=== PATIENT | female | born 1980 | race Caucasian/White ===

== ENCOUNTER → 2016-09-11 | Outpatient (CLI) | payer BC ==
[~2016-09-11] MED LIST: DIPH1TAB PO; IBUP-1050 PO; OMEG10007 PO; PRENTAB26 PO
== END | disposition home or self-care (01) ==
LOC: C.LAB 15:18
PROVIDERS: ATTEND Obstetrics & Gynecology
DX: N91.2 Amenorrhea, unspecified (principal)

== ENCOUNTER → 2016-11-11 | Outpatient (CLI) | payer BC | END | disposition home or self-care (01) | LOC: C.LAB 16:29 | PROVIDERS: ATTEND Obstetrics & Gynecology | DX: E28.8 Other ovarian dysfunction (principal) ==

== ENCOUNTER → 2016-11-25 | Outpatient (CLI) | payer BC ==
[2016-11-29 11:40] LABS: CHLAMYDIA TRACH RNA*** NOT DETECTED (NOT DETECTED); GC (NEIS GONORRHOEAE)RNA** NOT DETECTED (NOT DETECTED)
== END | disposition home or self-care (01) ==
LOC: C.LABSPEC 14:54
PROVIDERS: ATTEND Obstetrics & Gynecology
DX: Z34.81 Encounter for supervision of other normal pregnancy, first trimester (principal)

== ENCOUNTER → 2016-11-27 | Outpatient (CLI) | payer BC | END | disposition home or self-care (01) | LOC: C.LAB 13:27 | PROVIDERS: ATTEND Obstetrics & Gynecology | DX: O09.511 Supervision of elderly primigravida, first trimester (principal); Z3A.00 Weeks of gestation of pregnancy not specified ==

== ENCOUNTER → 2016-12-26 | Day surgery (SDC) | payer BC ==
--- NOTE | 2016-12-24 19:33 | HISTORY & PHYSICAL EXAMINATION ---
DATE: 12/26/2016 CHIEF COMPLAINT: Blighted ovum. HISTORY OF PRESENT ILLNESS: The patient is a 36-year-old 2, para 1. She conceived on Clomid, her last menstrual period was 10/21/2016. She had beta unit progesterone level done on 11/27/2016, showed beta units of 3151, progesterone level 14.09. She was brought in for routine ultrasound screening on 12/24/2016 and showed an empty gestational sac which she had an irregular border and was only a 5-week 4-day size with an expected gestational age of 9 weeks and 1 day. She was diagnosed with a blighted ovum, scheduled for an outpatient D&E. PAST MEDICAL HISTORY: She has a 2-year-old boy in good health. ALLERGIES: No known drug allergies. MEDICATIONS: She is on no chronic pills or medications. PAST SURGICAL HISTORY: Status post breast augmentation 2004. SOCIAL HISTORY: No smoking. No alcohol intake. FAMILY HISTORY: Mom is 62, had a hysterectomy at age 37 for endometriosis. Dad 63, in good health. She has 1 sister in good health. REVIEW OF SYSTEMS: She does have problems with sinus headaches. No symptoms of frequent ear infections, nosebleed, sore throats, kidney or bladder infections. PHYSICAL EXAMINATION: GENERAL: Well-developed, well-nourished 36-year-old white female, alert, oriented x3 and cooperative, no acute distress, appears her stated age. EYES: Conjunctivae are pink, sclerae white, no evidence of jaundice. EARS: Have normal light reflex bilaterally. NOSE: Has normal mucosa. Septum is midline. There are no polyps. THROAT: No erythema or evidence of infection. Teeth are in good state of repair. HEAD: Normocephalic, normal distribution of hair. NECK: Supple. Trachea midline. Thyroid is not enlarged. There is no adenopathy appreciated. Both carotids are of good intensity. CHEST: Clear to auscultation and percussion. No wheezes, rales or rhonchi appreciated. HEART: Has regular rhythm. S1 and S2 are normal. BREASTS: Normal. ABDOMEN: Soft and nontender. PELVIC: Reveals normal appearing cervix. Uterus is normal size, 6-8 weeks' gestational size. There are no adnexal masses appreciated. There is no tenderness. IMPRESSIONS OF THIS CASE: Status post breast augmentation and blighted ovum.
[2016-12-25 15:42] VITALS: BMI 23.0
[~2016-12-26] VITALS: Ht 154.9 cm; Wt 56.4 kg
[~2016-12-26] MED LIST changes: +DEXAMETHASONE SOD INJ 4 MG/ML VIAL ONE; -DIPH1TAB PO; +DIPH1TAB87 PO; +DiphenhydrAMINE HCL 50 MG/ML VIAL ONE; +FENTANYL CITRATE INJ 50 MCG/1 ML 2 ML VIAL IV PRN; +FENTANYL CITRATE INJ 50 MCG/1 ML 2 ML VIAL ONE; +HYDROCODONE/ACETAMOPHEN 5/325MG TAB PO PRN; +IBUPROFEN 600 MG TAB PO PRN; +KETOROLAC TROMETHAMINE 30 MG/ML VIAL IV. PRN; +LACTATED RINGER'S 1000ML 1,000 ML IV PRN; +LACTATED RINGER'S 1000ML 1,000 ML IV SCH; +LIDOCAINE HCL 2% 2 ML VIAL (20MG/ML) ONE; +METOCLOPRAMIDE HCL INJ 5 MG/ML 2 ML VIAL ONE; +MIDAZOLAM HCL 1 MG/ML 2ML VIAL ONE; -OMEG10007 PO; +ONDANSETRON INJ 2 MG/ML 2 ML VIAL IV PRN; +ONDANSETRON INJ 2 MG/ML 2 ML VIAL ONE; +OXYCODONE/ACETAMINOPHEN 5-325 TAB PO PRN; +OXYTOCIN INJ 10 UNITS/ML VIAL ONE; -PRENTAB26 PO; +PROPOFOL IV EMULSION 10 MG/ML 20 ML VIAL IV ONE; +SCOPOLAMINE 1.5 MG TDSY TD ONE; +SODIUM CHLORIDE 0.9% 1000ML 1,000 ML IV SCH
[2016-12-26 09:38] VITALS: BP 113/60; PULSE 61; TEMP 37; O2SAT 100; Ht 154.9 cm; Wt 56.4 kg
--- NOTE | 2016-12-26 11:07 | History & Physical Bridge Note ---
H&P Re-Evaluation Bridge Note: I have examined the patient, reviewed the History & Physical and in the interval since the performance of the History & Physical I have noted the following changes of clinical significance: No changes noted
--- NOTE | 2016-12-26 12:01 | [facility] Post Operative Brief Note ---
Immediate Operative Summary Operative Date Dec 26, 2016. Pre-Operative Diagnosis Blighted Ovum Post-Operative Diagnosis same as preoperative Procedure(s) Performed Dilation and Evacuation Surgeon Computed Tomography Scanner Operator Surgeon(s) None Estimated Blood Loss 100ml Findings 9 week size uterus Specimens A. Products of Conception. Complication(s) None Disposition Recovery Room / PACU
--- NOTE | 2016-12-26 12:03 | OPERATIVE REPORT ---
DATE OF OPERATION: 12/26/2016 PROCEDURE: Suction and sharp curettage of the endometrial cavity. INDICATIONS FOR SURGERY: Blighted ovum on first trimester ultrasound. PREOPERATIVE DIAGNOSIS: Blighted ovum. POSTOPERATIVE DIAGNOSIS: Same. Pathology pending. SURGEON: Dr. Blair. ESTIMATED BLOOD LOSS: 100 mL. OPERATIVE FINDINGS AND PROCEDURE: The patient was brought to the OR table, correctly identified by armband and conversation. General anesthesia was administered. Perineum and vagina were painted with Betadine paint and draped in the usual sterile fashion. Catheter was used to empty the bladder. Careful pelvic exam under anesthesia revealed about a 9-week gestational size uterus, soft, and anteverted. No adnexal masses appreciated. Weighted speculum was placed in the posterior vagina. Anterior lip of the cervix was grasped with an Allis. Cervix was dilated with graduated dilators. Then, #8 suction curette was placed in the uterine cavity. Suction was applied and amniotic fluid and placental tissue could be seen coming through the curette. Following this, a sharp curette was placed in the uterine cavity. All 4 quadrants were gently and thoroughly curetted. This was productive of a few additional fragments of tissue. Then, the suction curette was reapplied and the endometrial cavity was re-suctioned to remove all remaining debris and blood clots. Following this, with bimanual massage, uterus contracted nicely. Hemostasis was good. Instruments were removed. The patient tolerated the procedure well and left the OR in good condition. I attest to the content of the Intraoperative Record and any orders documented therein. Any exceptio ns are noted below.
--- NOTE | 2016-12-26 12:05 | Discharge Instructions ---
Discharge Instructions Date of Service Dec 26, 2016. Visit Reason for Visit: Missed Discharge Discharge Diagnosis / Problem: missed Discharge Goals Goal(s): Improve disease control Activity Recommendations Activity Limitations: as noted below ACTIVITY RECOMMENDATIONS: * Avoid tampons, douching, hot tubs, pools, and intercourse until bleeding has stopped. * May shower as usual. * No strenuous activity for 24-48 hours. After 24-48 hours, you may do anything you feel like doing (driving and sports are okay). SPECIAL CARE INSTRUCTIONS: Special Diet: * Mild nausea may occur in the immediate post-operative period. * Take clear liquids such as tea, cola or bouillon until all nausea has subsided; you may then resume your normal diet. Special Care: * Light bleeding and vaginal spotting can last from a few days to 3-4 weeks. Call your doctor if bleeding becomes heavier than the heaviest part of your period. * Check your temperature twice a day for one week. If it goes above 100.4 degrees Fahrenheit (38.0 Celsius), notify your doctor. * Call your doctor's office for an appointment for 6 weeks after your surgery. FOLLOW-UP VISIT: Call your doctor's office for an appointment for 6 weeks after your surgery. Anesthesia . Post Anesthesia Instructions: If you have had General Anesthesia or IV Sedation: * Do not drive today. * Resume driving when surgeon permits. * Do not make important decisions or sign legal documents today. * Call surgeon for: 1. Temperature elevations greater than 101 degrees F. 2. Uncontrollable pain. 3. Excessive bleeding. 4. Persistent nausea and vomiting. 5. Medication intolerance (nausea, vomiting or rash). * For nausea and vomiting use only clear liquids such as: tea, soda, bouillon until nausea subsides, then gradually increase diet as tolerated. * If you have any concerns or questions, call your surgeon's office. If physician is unavailable and it is an emergency, call 911 or go to the nearest emergency room. . Diet Recommendations Recommended Home Diet: resume previous diet Procedures Procedures Performed: Dilation and Evacuation Pending Studies Studies pending at discharge: no Medical Emergencies . Who to Call and When: Medical Emergencies: If at any time you feel your situation is an emergency, please call 911 immediately. . Non-Emergent Contact Non-Emergency issues call your: Life Insurance Actuary Call Non-Emergent contact if: temperature is above 100.5 . . "Provider Documentation" section prepared by Candelario Blair. .
[2016-12-26 12:50] VITALS: BP 100/49; PULSE 69; TEMP 36.9; O2SAT 100
--- NOTE | 2016-12-26 12:56 | Anesthesiology Progress Note ---
Anesthesia Post Op Note Date & Time Dec 26, 2016 at 12:55 Vital Signs Pain Intensity: 0 Vital Signs Past 12 Hours Date Time Temp Pulse Resp B/P Pulse Ox O2 Delivery O2 Flow Rate FiO2 12/26/16 12:40 37.0 63 12 103/44 100 Room Air 12/26/16 12:30 66 12 105/43 100 Room Air 12/26/16 12:20 67 12 103/40 100 Mask 10 12/26/16 12:10 70 12 100/50 100 Mask 10 12/26/16 12:04 37.2 72 12 102/42 100 Mask 10 12/26/16 09:38 37 61 16 113/60 100 Room Air Notes Mental Status: alert / awake / arousable, participated in evaluation Pt Amnestic to Procedure: Yes Nausea / Vomiting: adequately controlled Pain: adequately controlled Airway Patency, RR, SpO2: stable & adequate BP & HR: stable & adequate Hydration State: stable & adequate Anesthetic Complications: no major complications apparent
[2016-12-26 13:20] VITALS: BP 102/51; PULSE 70; O2SAT 100
== END | disposition home or self-care (01) ==
LOC: C.ACU 09:19
PROVIDERS: ATTEND Obstetrics & Gynecology
DX: O02.0 Blighted ovum and nonhydatidiform mole (principal)

== ENCOUNTER → 2017-01-15 | Outpatient (CLI) | payer BC ==
[~2017-01-15] MED LIST changes: -DEXAMETHASONE SOD INJ 4 MG/ML VIAL ONE; -DiphenhydrAMINE HCL 50 MG/ML VIAL ONE; -FENTANYL CITRATE INJ 50 MCG/1 ML 2 ML VIAL IV PRN; -FENTANYL CITRATE INJ 50 MCG/1 ML 2 ML VIAL ONE; -HYDROCODONE/ACETAMOPHEN 5/325MG TAB PO PRN; -IBUPROFEN 600 MG TAB PO PRN; -KETOROLAC TROMETHAMINE 30 MG/ML VIAL IV. PRN; -LACTATED RINGER'S 1000ML 1,000 ML IV PRN; -LACTATED RINGER'S 1000ML 1,000 ML IV SCH; -LIDOCAINE HCL 2% 2 ML VIAL (20MG/ML) ONE; -METOCLOPRAMIDE HCL INJ 5 MG/ML 2 ML VIAL ONE; -MIDAZOLAM HCL 1 MG/ML 2ML VIAL ONE; -ONDANSETRON INJ 2 MG/ML 2 ML VIAL IV PRN; -ONDANSETRON INJ 2 MG/ML 2 ML VIAL ONE; -OXYCODONE/ACETAMINOPHEN 5-325 TAB PO PRN; -OXYTOCIN INJ 10 UNITS/ML VIAL ONE; -PROPOFOL IV EMULSION 10 MG/ML 20 ML VIAL IV ONE; -SCOPOLAMINE 1.5 MG TDSY TD ONE; -SODIUM CHLORIDE 0.9% 1000ML 1,000 ML IV SCH
[2017-01-15 15:06] LABS: URINE APPEARANCE CLEAR (CLEAR); URINE BILIRUBIN NEG (NEG); URINE COLOR YELLOW; URINE NITRITE NEG (NEG); URINE SPECIFIC GRAVITY 1.016 (1.000-1.030); UROBILINOGEN NEG (NEG)
[2017-01-15 15:10] LABS: MANUAL MICROSCOPIC REQUIRED? NO; REVIEW REQ? NO
== END | disposition home or self-care (01) ==
LOC: C.LABSPEC 14:46
PROVIDERS: ATTEND Obstetrics & Gynecology
DX: R30.0 Dysuria (principal)

== ENCOUNTER → 2017-04-03 | Outpatient (CLI) | payer BC ==
[~2017-04-03] MED LIST changes: +DIPH1TAB PO; -DIPH1TAB87 PO
== END | disposition home or self-care (01) ==
LOC: C.LAB 10:28
PROVIDERS: ATTEND Obstetrics & Gynecology
DX: O09.511 Supervision of elderly primigravida, first trimester (principal); Z3A.00 Weeks of gestation of pregnancy not specified

== ENCOUNTER → 2017-04-05 | Outpatient (CLI) | payer BC | END | disposition home or self-care (01) | LOC: C.LAB 10:30 | PROVIDERS: ATTEND Obstetrics & Gynecology | DX: O09.511 Supervision of elderly primigravida, first trimester (principal) ==

== ENCOUNTER → 2017-04-12 | Outpatient (CLI) | payer BC | END | disposition home or self-care (01) | LOC: C.LAB 10:03 | PROVIDERS: ATTEND Obstetrics & Gynecology | DX: Z34.81 Encounter for supervision of other normal pregnancy, first trimester (principal) ==

== ENCOUNTER → 2017-04-29 | Outpatient (CLI) | payer BC | END | disposition home or self-care (01) | LOC: C.PAPS 16:15 | PROVIDERS: ATTEND Obstetrics & Gynecology | DX: Z34.81 Encounter for supervision of other normal pregnancy, first trimester (principal); R87.610 Atypical squamous cells of undetermined significance on cytologic smear of cervix (ASC-US) ==

== ENCOUNTER → 2017-04-29 | Outpatient (CLI) | payer BC ==
[2017-05-05 10:37] LABS: CHLAMYDIA TRACH RNA*** NOT DETECTED (NOT DETECTED); GC (NEIS GONORRHOEAE)RNA** NOT DETECTED (NOT DETECTED)
== END | disposition home or self-care (01) ==
LOC: C.LABSPEC 15:00
PROVIDERS: ATTEND Obstetrics & Gynecology
DX: Z34.81 Encounter for supervision of other normal pregnancy, first trimester (principal)

== ENCOUNTER → 2017-06-28 | Outpatient (CLI) | payer BC ==
[~2017-06-28] MED LIST changes: -DIPH1TAB PO; +DIPH1TAB87 PO
[2017-06-28 12:34] LABS: BASO % 0.2 %; BASO ABS # 0.01 K/uL (0-0.2); COMPLETE YES; EOS % 0.5 %; HEMATOCRIT 35.5 % (37-47); IG% 0.2 %; LYMPH % 26.1 %; LYMPH ABS # 1.73 K/uL (1.2-3.4); MEAN CELL VOLUME 86.8 fL (80-100); MEAN CORPUSCULAR HEMOGLOBIN 30.1 pg (25-34); MEAN CORPUSCULAR HGB CONC 34.6 g/dl (32-36); MEAN PLATELET VOLUME 11.2 fL (7.4-10.4); MONO % 6.6 %; NEUT % 66.4 %; PLATELET COUNT 214 K/uL (130-400); RED BLOOD COUNT 4.09 M/uL (4.2-5.4); WHITE BLOOD COUNT 6.62 K/uL (4.8-10.8)
[2017-06-28 12:56] LABS: GTGD 50 Grams
== END | disposition home or self-care (01) ==
LOC: C.LAB 09:15
PROVIDERS: ATTEND Obstetrics & Gynecology
DX: Z34.82 Encounter for supervision of other normal pregnancy, second trimester (principal); Z3A.16 16 weeks gestation of pregnancy

== ENCOUNTER → 2017-09-19 | Day surgery (SDC) | payer BC ==
[~2017-09-19] VITALS: Ht 155.6 cm; Wt 66.2 kg
[~2017-09-19] MED LIST changes: +ACET325T96 PO; +ELDE1SYP PO; +FERR1TAB23 PO; +FOLI1TAB8 PO; +MAGN400T6 PO; +PRENTAB26 PO; +RANI150T3 PO
[2017-09-19 11:41] VITALS: BP 111/71; PULSE 82; TEMP 36.7; O2SAT 98; Ht 155.6 cm; Wt 66.2 kg
[2017-09-19 12:15] VITALS: BP 101/64; PULSE 84; TEMP 37.2; O2SAT 97
== END | disposition home or self-care (01) ==
LOC: C.MTU 11:26
PROVIDERS: ATTEND Obstetrics & Gynecology
DX: O36.0990 Maternal care for other rhesus isoimmunization, unspecified trimester, not applicable or unspecified (principal)

== ENCOUNTER → 2017-11-04 | Outpatient (CLI) | payer BC ==
[~2017-11-04] MED LIST changes: +ACET-1693 PO; -ACET325T96 PO; -IBUP-1050 PO
== END | disposition home or self-care (01) ==
LOC: C.LABSPEC 14:22
PROVIDERS: ATTEND Obstetrics & Gynecology
DX: Z34.83 Encounter for supervision of other normal pregnancy, third trimester (principal)

== ENCOUNTER 2017-11-24 23:37 | Inpatient (IN) | payer BC ==
[~2017-11-24] VITALS: Ht 154.9 cm; Wt 73.0 kg
[2017-11-25] MEDS ORDERED: LACTATED RINGER'S 1000ML 1,000 ML IV SCH (00:10)
[2017-11-25] MEDS ORDERED: LACTATED RINGER'S 1000ML 1,000 ML IV PRN (00:10)
[2017-11-25] MEDS ORDERED: PENICILLIN G POTASSIUM IV 6 MU in DEXTROSE 5% 250ML 250 ML IV ONE (00:15)
[2017-11-25 00:56] LABS: HEMATOCRIT 36.2 % (37-47); HEMOGLOBIN 12.9 g/dL (12.0-16.0); MEAN CELL VOLUME 90.3 fL (80-100); MEAN CORPUSCULAR HEMOGLOBIN 32.2 pg (25-34); MEAN CORPUSCULAR HGB CONC 35.6 g/dl (32-36); MEAN PLATELET VOLUME 10.6 fL (7.4-10.4); PLATELET COUNT 199 K/uL (130-400); RED CELL DISTRIBUTION WIDTH CV 14.6 % (11.5-14.5); RED CELL DISTRIBUTION WIDTH SD 48.2 fL (36.4-46.3)
[2017-11-25] MEDS ORDERED: PRENTAB65 PO (00:57)
[2017-11-25 00:59] VITALS: Ht 154.9 cm; Wt 73.0 kg
[2017-11-25] MEDS: PENICILLIN G POTASSIUM IV 3 MU in DEXTROSE 5% 100ML 100 ML IV PRN ×2 (04:26→08:38)
--- NOTE | 2017-11-25 11:37 | Discharge Instructions ---
Discharge Instructions Date of Service Nov 25, 2017. Admission Reason for Admission: LABOR Discharge Discharge Diagnosis / Problem: false labor Discharge Goals Goal(s): Continuing OB care Activity Recommendations Activity Limitations: as noted below return for routine ob care . Current Hospital Diet Patient's current hospital diet: Regular OB Diet Discharge Diet Recommended Diet: Regular Diet Pending Studies Studies pending at discharge: no Medical Emergencies . Who to Call and When: Medical Emergencies: If at any time you feel your situation is an emergency, please call 911 immediately. . Non-Emergent Contact Non-Emergency issues call your: Plane Tender Call Non-Emergent contact if: temperature is above 100.5 . . "Provider Documentation" section prepared by Candelario Blair. .
--- NOTE | 2017-11-25 11:50 | DISCHARGE SUMMARY ---
HOSPITAL COURSE: Mrs. Mathis has been followed in our office for care and delivery. She was admitted having strong contractions every 10 minutes. She was given an initial dose of penicillin for a positive beta strep culture; however, during the evening, her contractions spaced. Her cervix, which was 3-4 cm on admission, did not change several hours later and her contractions began to space to 1 every 30 minutes. She was discharged to continue care in our office and to return if her labor resumed or water broke.
--- NOTE | 2017-11-25 11:56 | HISTORY & PHYSICAL EXAMINATION ---
DATE OF ADMISSION: 11/25/2017 HISTORY OF PRESENT ILLNESS: Mrs. Mathis is a 36-year-old 3, para 1. She has had 1 previous spontaneous AB. She had an uneventful course so far. She delivered her first baby in 2014, 6 pounds 4 ounces, spontaneous vaginal delivery after 12 hours of labor. Present has been uneventful. Blood type is AB negative, rubella immune. Vaginal beta strep positive. She was admitted in labor having contractions every 10 minutes. There were strong contractions. At the time of admission, she was 3-4 cm, head was high. She stayed overnight. Her contractions started to space. At the time of discharge, she was getting a contraction about every 30 minutes. Her cervix was still about 3-4, membranes intact. She was subsequently diagnosed as being in false labor and discharged to continue care in the office. PAST MEDICAL HISTORY: Noncontributory. ALLERGIES: She has no known drug allergies. PAST SURGICAL HISTORY: No previous surgery. SOCIAL HISTORY: No smoking. No alcohol intake. FAMILY HISTORY: Noncontributory. REVIEW OF SYSTEMS: Negative. PHYSICAL EXAMINATION: GENERAL: Well-developed, well-nourished 36-year-old white female, alert, oriented x3 and cooperative in no acute distress, appears stated age. EYES: Conjunctivae are pink. Sclerae white, no evidence of jaundice. HEART: Had regular rhythm. S1, S2 are normal. LUNGS: Clear to auscultation and percussion. ABDOMEN: Consistent with a term size fetus and an estimated weight of 7 pounds. Contractions were palpable every 30 minutes. PELVIC: Revealed a vertex presentation. Cervix 4 cm, -2 station. MUSCULOSKELETAL: Revealed no calf tenderness. IMPRESSIONS OF THIS CASE: Intrauterine at 38 weeks 3 days and false labor.
== END 2017-11-25 12:20 | disposition home or self-care (01) | DRG 780 ==
LOC: C.LD 23:37 → C.OPB 23:37 → C.LD 11-25 00:13
PROVIDERS: ADMIT Obstetrics & Gynecology; ATTEND Obstetrics & Gynecology
DX: O47.1 False labor at or after 37 completed weeks of gestation (principal); Z3A.38 38 weeks gestation of pregnancy

== ENCOUNTER 2017-12-02 12:11 | Inpatient (IN) | payer BC ==
[~2017-12-02] VITALS: Ht 154.9 cm; Wt 74.1 kg
[~2017-12-02 12:11] MED LIST changes: +PRENTAB65 PO
[2017-12-02] MEDS ORDERED: LACTATED RINGER'S 1000ML 1,000 ML IV PRN ×2 (19:54→20:15)
[2017-12-02] MEDS ORDERED: PENICILLIN G POTASSIUM IV 6 MU in DEXTROSE 5% 250ML 250 ML IV ONE ×2 (20:00→20:15)
[2017-12-02 20:01] VITALS: Ht 154.9 cm; Wt 74.1 kg
[2017-12-02] MEDS ORDERED: MISOPROSTOLTAB 50 MCG TAB PO ONE (20:15)
[2017-12-02] MEDS ORDERED: PENICILLIN G POTASSIUM IV 3 MU in DEXTROSE 5% 100ML 100 ML IV PRN (20:15)
[2017-12-02] MEDS: LACTATED RINGER'S 1000ML 1,000 ML IV SCH (20:24)
[2017-12-02 20:38] LABS: HEMATOCRIT 36.2 % (37-47); HEMOGLOBIN 12.5 g/dL (12.0-16.0); MEAN CORPUSCULAR HEMOGLOBIN 31.4 pg (25-34); MEAN CORPUSCULAR HGB CONC 34.5 g/dl (32-36); MEAN PLATELET VOLUME 11.1 fL (7.4-10.4); PLATELET COUNT 202 K/uL (130-400); RED CELL DISTRIBUTION WIDTH CV 14.5 % (11.5-14.5); RED CELL DISTRIBUTION WIDTH SD 48.6 fL (36.4-46.3); WHITE BLOOD COUNT 8.95 K/uL (4.8-10.8)
[2017-12-03] MEDS: PENICILLIN G POTASSIUM IV 3 MU in DEXTROSE 5% 100ML 100 ML IV PRN ×3 (00:48→08:09)
[2017-12-03] MEDS ORDERED: BUPIVACAINE 0.25% 30 ML VIAL ONE (01:38)
[2017-12-03] MEDS ORDERED: EpHEDrine SULFATE INJ 50 MG/ML AMP ONE (01:38)
[2017-12-03] MEDS ORDERED: FENTANYL CITRATE INJ 50 MCG/1 ML 2 ML VIAL ONE (01:39)
[2017-12-03] MEDS ORDERED: FENTANYL 2MCG/ML ROPIV 1.25MG/ML 100ML BAG EPI ONE (01:39)
[2017-12-03] MEDS ORDERED: LACTATED RINGER'S 1000ML 500 ML IV PRN ×2 (03:05→03:14)
[2017-12-03] MEDS ORDERED: NALOXONE HCL INJ 1 MG in SODIUM CHLORIDE 0.9% 1000ML 1,000 ML IV PRN ×4 (03:05)
[2017-12-03] MEDS ORDERED: NALBUPHINE HCL INJ 10 MG/ML AMP IV PRN (03:15)
[2017-12-03] MEDS ORDERED: OXYTOCIN 30 UNITS/500ML NSS IV PRN ×3 (03:15→09:15)
[2017-12-03] MEDS ORDERED: METOCLOPRAMIDE HCL INJ 20 MG in SODIUM CHLORIDE 0.9% 50ML 50 ML IV PRN (03:15)
[2017-12-03] MEDS ORDERED: NALOXONE HCL INJ 0.4 MG/1 ML VIAL/CARP IV PRN (03:15)
[2017-12-03] MEDS ORDERED: FENTANYL 2MCG/ML ROPIV 1.25MG/ML 100ML BAG EPI PRN (03:15)
[2017-12-03] MEDS ORDERED: PROMETHAZINE HCL INJ 25 MG in SODIUM CHLORIDE 0.9% 50ML 50 ML IV PRN (03:15)
[2017-12-03] MEDS ORDERED: ONDANSETRON INJ 2 MG/ML 2 ML VIAL IV PRN (03:15)
[2017-12-03] MEDS ORDERED: EpHEDrine SULFATE INJ 50 MG/ML AMP IV PRN (03:15)
[2017-12-03] MEDS ORDERED: DiphenhydrAMINE HCL 50 MG/ML VIAL IV PRN (03:15)
[2017-12-03] MEDS: LACTATED RINGER'S 1000ML 1,000 ML IV SCH (06:11)
[2017-12-03] MEDS ORDERED: METHYLERGONOVINE MALEATE 0.2 MG/ML AMP ONE (09:06)
[2017-12-03] MEDS ORDERED: BENZOCAINE 20% AER SPR 82.5 GM CAN EXT PRN ×2 (09:15)
[2017-12-03] MEDS ORDERED: SUPERCREAM 0.870 % 15GM JAR EXT PRN ×2 (09:15)
[2017-12-03] MEDS ORDERED: ACETAMINOPHEN 325 MG TAB PO PRN ×2 (09:15)
[2017-12-03] MEDS ORDERED: HYDROCORTISONE ACETATE 25 MG SUPP PR PRN ×2 (09:15)
[2017-12-03] MEDS ORDERED: ACETAMINOPHEN/CODEINE 300/30MG TAB PO PRN ×4 (09:15)
[2017-12-03] MEDS ORDERED: METHYLERGONOVINE MALEATE 0.2 MG/ML AMP IM ONE ×2 (09:15)
[2017-12-03] MEDS ORDERED: DIPHTHERIA/TETANUS/PERTUSSIS 0.5 ML SYR/VIAL IM. ONE (09:15)
[2017-12-03] MEDS ORDERED: IBUPROFEN 600 MG TAB PO PRN (09:15)
[2017-12-03] MEDS ORDERED: LANOLIN OINT EXT PRN ×2 (09:15)
[2017-12-03] MEDS ORDERED: OXYCODONE/ACETAMINOPHEN 5-325 TAB PO PRN ×2 (09:15)
--- NOTE | 2017-12-03 09:31 | DELIVERY SUMMARY ---
DATE OF OPERATION: 12/03/2017 Mrs. Mathis is a 3, para 2. She is in good general health. She had an uneventful care. Her blood type is AB negative. She is rubella immune. Vaginal beta strep positive. She came in previously with an episode of a false labor. She went home. She was having a lot of contractions at home and lot of discomfort. After 39 weeks, her cervix was 4+ cm dilated and she requested induction of labor. She was brought in and given p.o. Cytotec 50 mcg. She contracted sporadically during the night and eventually, went for epidural. She was also given penicillin as soon as she got into the hospital and that was continued throughout her hospital stay. After the epidural, she was augmented with IV Pitocin. Eventually, she got into a regular labor pattern. Membranes were ruptured surgically at about 6 cm. Fluid was clear. Eventually then, we emptied her bladder. She felt a lot of pressure, fully dilated, pushed out a live female via direct occiput anterior position over an intact perineum. was suctioned through the mouth and the nose. Cord was clamped and cut. Cord blood was taken for cord blood banking. Then, we took some cord blood of the for AB negative status. Then with IV Pitocin running, we removed the placenta intact. Uterus contracted nicely. We also did augment with Methergine. She had a second degree laceration of the perineum. This was repaired anatomically. The vaginal mucosa was approximated with a running 2-0 Vicryl out to be on the hymenal ring. A deep suture of 2-0 Vicryl was used to approximate the bulbocavernosus muscle. Separate deep suture of 2-0 Vicryl was used to approximate the perineal body and a running subcuticular suture of 2-0 Vicryl was used to approximate the perineal skin edges. Following this, we removed all sponges from the vagina. Uterus contracted nicely. We removed all blood clots. Vaginal exam including rectovaginal examination revealed no hematoma formation or sponges in the vagina. My own estimation of 1 and 5 minute Apgars were 8 and 9 respectively and the estimated blood loss was about 400 mL. I attest to the content of the Intraoperative Record and any orders documented therein. Any exception s are noted below.
--- NOTE | 2017-12-03 10:27 | Anesthesia Procedure Note ---
Anesthesia Epidural Removal Nt Date & Time Dec 03, 2017 at 10:26 Notes Mental Status: alert / awake / arousable, participated in evaluation Nausea / Vomiting: adequately controlled Pain: adequately controlled Airway Patency, RR, SpO2: stable & adequate BP & HR: stable & adequate Hydration State: stable & adequate Neuraxial Anesthesia: was administered Anesthetic Complications: no major complications apparent, pt satisfied with anesthetic care Epidural: removed without complications, with tip intact
[2017-12-03] MEDS: IBUPROFEN 600 MG TAB PO PRN ×2 (11:15→18:50)
[2017-12-03 12:30] VITALS: BP 112/71; PULSE 77; TEMP 37.1
[2017-12-03 15:25] VITALS: BP 96/64; PULSE 73; TEMP 36.8
[2017-12-03 18:45] VITALS: BP 121/69; PULSE 76; TEMP 36.7
[2017-12-03] MEDS: DOCUSATE SODIUM 100 MG CAP PO SCH (19:40)
[2017-12-03] MEDS ORDERED: DOCUSATE SODIUM 100 MG CAP PO SCH (20:00)
[2017-12-04] VITALS: BP 103/50; PULSE 77; TEMP 36.8
[2017-12-04] MEDS: IBUPROFEN 600 MG TAB PO PRN ×2 (00:24→16:11)
[2017-12-04 03:45] VITALS: BP 97/64; PULSE 82; TEMP 36.9
[2017-12-04 07:30] VITALS: BP 102/65; PULSE 80; TEMP 36.4
[2017-12-04 07:32] LABS: HEMATOCRIT 34.2 % (37-47); HEMOGLOBIN 11.6 g/dL (12.0-16.0)
[2017-12-04] MEDS ORDERED: PRENATAL VITAMIN TAB PO SCH ×2 (08:00)
[2017-12-04] MEDS ORDERED: FERROUS SULFATE 325 MG TAB PO SCH (08:00)
--- NOTE | 2017-12-04 09:30 | Progress Note ---
Subjective Dec 04, 2017. Subjective conversation w/ patient Ambulation: ambulating normally Voiding: no voiding problems Passing Gas: Yes Diet Tolerance: Regular Diet Lochia: Small Review of Systems Constitutional: + fever Objective Vital Signs Date Time Temp Pulse Resp B/P (MAP) Pulse Ox O2 Delivery O2 Flow Rate FiO2 12/04/17 07:30 Room Air 12/04/17 07:30 36.4 80 18 102/65 (77) Room Air 12/04/17 03:45 36.9 82 16 97/64 (75) Room Air 12/04/17 00:00 Room Air 12/04/17 00:00 36.8 77 18 103/50 (67) Room Air 12/03/17 18:45 36.7 76 18 121/69 (86) Room Air 12/03/17 15:25 36.8 73 18 96/64 (75) Room Air 12/03/17 15:25 Room Air 12/03/17 12:30 37.1 77 18 112/71 (85) Room Air 12/03/17 12:30 Room Air Physical Exam General Appearance: WELL-APPEARING Respiratory/Chest: lungs clear Abdomen: normal bowel sounds, non tender Fundus: Firm, Non-Tender Extremities: no pedal edema, no calf tenderness Laboratory Results Last 24 Hours Test 12/04/17 07:22 Hemoglobin 11.6 g/dL Hematocrit 34.2 % Assessment and Plan Post- Day#: 1
--- NOTE | 2017-12-04 09:32 | Discharge Instructions ---
Discharge Instructions Date of Service Dec 04, 2017. Admission Reason for Admission: Induction Discharge Discharge Diagnosis / Problem: term Discharge Goals Goal(s): Routine recovery after delivery Activity Recommendations Activity Limitations: as noted below ACTIVITY RECOMMENDATIONS: * Gradual return to full activity over the next 2-3 weeks. * No lifting - nothing heavier than baby over the next 2-3 weeks. * Do not engage in vigorous exercise, sexual activity or sports until cleared by your physician. * Do not drive or operate any motorized equipment until cleared by your physician. * You may shower/bathe daily. DIET: Resume Previous Diet If Breast-feeding: * Increase caloric intake by 500 calories, eat 3 well balanced meals, 2 high protein snacks a day and drink 6-8 8oz. glasses of fluid per day. BREAST CARE: If you are not breast feeding: * Wear a supportive bra 24 hours a day for one to two weeks. * Avoid stimulating your breasts and nipples as much as possible during the first few weeks after delivery. * When taking a shower, have the warm water hit your back, not breasts. * When your breasts feel full, apply ice packs. Usually three to four times a day helps ease the discomfort. * Take a mild pain medication (Tylenol / Motrin) when you are uncomfortable. If breast feeding: * Use breast milk to lubricate nipples. Lansinoh cream may be used for sore nipples. You do not need to remove cream prior to breast feeding. If using a different brand of cream, check the label for directions regarding removal of cream prior to nursing. * Wear a supportive bra. * If having problems with breasts or breast feeding, call a customer care voice consultant or your health care provider. OVER THE COUNTER MEDICATION: * For discomfort or pain, you may use Acetaminophen (Tylenol), Ibuprofen (Advil ), or Naproxen (Aleve) following the package directions. * For constipation you may use Colace following the package directions. SPECIAL CARE INSTRUCTIONS: * Vaginal rest (no tampons, douching, intercourse) until after doctor 's visit. * control as discussed with doctor. * Verbalizes understanding of car seat law as reviewed with patient nursing. * Car Seat hand-out given and reviewed with patient by nursing. * Shaken baby information reviewed with patient by nursing. Call you doctor if: * Temperature greater than or equal to 100.4 degrees F or 38.0 degrees C. Take your temperature twice daily for a week. * Bleeding becomes heavier than the heaviest part of your period - saturating a sanitary pad within an hour. * Passing large clots. * Bleeding has a foul smelling odor. * Signs and symptoms of phlebitis: leg pain, warm, red or swollen area on leg. * "Baby Blues" lasting longer than two weeks. ++ If you have had a and incision has increased pain, redness, swelling, presence of any drainage, or if the incision starts to open up. If you have any questions or concerns, call your health care practitioner at [phone]. FOLLOW-UP VISIT: Please call the office at to schedule a 6 week examination. . Current Hospital Diet ACTIVITY RECOMMENDATIONS: * Gradual return to full activity over the next 2-3 weeks. * No lifting - nothing heavier than baby over the next 2-3 weeks. * Do not engage in vigorous exercise, sexual activity or sports until cleared by your physician. * Do not drive or operate any motorized equipment until cleared by your physician. * You may shower/bathe daily. DIET: Resume Previous Diet If Breast-feeding: * Increase caloric intake by 500 calories, eat 3 well balanced meals, 2 high protein snacks a day and drink 6-8 8oz. glasses of fluid per day. BREAST CARE: If you are not breast feeding: * Wear a supportive bra 24 hours a day for one to two weeks. * Avoid stimulating your breasts and nipples as much as possible during the first few weeks after delivery. * When taking a shower, have the warm water hit your back, not breasts. * When your breasts feel full, apply ice packs. Usually three to four times a day helps ease the discomfort. * Take a mild pain medication (Tylenol / Motrin) when you are uncomfortable. If breast feeding: * Use breast milk to lubricate nipples. Lansinoh cream may be used for sore nipples. You do not need to remove cream prior to breast feeding. If using a different brand of cream, check the label for directions regarding removal of cream prior to nursing. * Wear a supportive bra. * If having problems with breasts or breast feeding, call a customer care voice consultant or your health care provider. OVER THE COUNTER MEDICATION: * For discomfort or pain, you may use Acetaminophen (Tylenol), Ibuprofen (Advil ), or Naproxen (Aleve) following the package directions. * For constipation you may use Colace following the package directions. SPECIAL CARE INSTRUCTIONS: * Vaginal rest (no tampons, douching, intercourse) until after doctor 's visit. * control as discussed with doctor. * Verbalizes understanding of car seat law as reviewed with patient nursing. * Car Seat hand-out given and reviewed with patient by nursing. * Shaken baby information reviewed with patient by nursing. Call you doctor if: * Temperature greater than or equal to 100.4 degrees F or 38.0 degrees C. Take your temperature twice daily for a week. * Bleeding becomes heavier than the heaviest part of your period - saturating a sanitary pad within an hour. * Passing large clots. * Bleeding has a foul smelling odor. * Signs and symptoms of phlebitis: leg pain, warm, red or swollen area on leg. * "Baby Blues" lasting longer than two weeks. ++ If you have had a and incision has increased pain, redness, swelling, presence of any drainage, or if the incision starts to open up. If you have any questions or concerns, call your health care practitioner at [phone]. FOLLOW-UP VISIT: Please call the office at to schedule a 6 week examination. Patient's current hospital diet: Regular OB Diet Discharge Diet Recommended Diet: Regular Diet Pending Studies Studies pending at discharge: no Medical Emergencies . Who to Call and When: Medical Emergencies: If at any time you feel your situation is an emergency, please call 911 immediately. . Non-Emergent Contact Non-Emergency issues call your: Salt Grinder Call Non-Emergent contact if: temperature is above 100.5 . . "Provider Documentation" section prepared by Candelario Blair. .
[2017-12-04] MEDS: DOCUSATE SODIUM 100 MG CAP PO SCH (10:45)
[2017-12-04 16:00] VITALS: BP 132/81; PULSE 72; TEMP 36.6
[2017-12-04 17:16] VITALS: BP_DIAS 81; PULSE 72; TEMP 36.6
[2017-12-04] MEDS ORDERED: BISACODYL 5 MG TABEC PO SCH ×2 (20:00)
[2017-12-05] MEDS ORDERED: BISACODYL 10 MG SUPP PR PRN ×2 (07:00)
== END 2017-12-04 17:16 | disposition home or self-care (01) | DRG 775 ==
LOC: C.LD 19:03 → C.OBG 12-03 11:38
PROVIDERS: ADMIT Obstetrics & Gynecology; ATTEND Obstetrics & Gynecology
PROC: 0KQM0ZZ Repair Perineum Muscle, Open Approach (ICD-10-PCS; principal; 2017-12-03)
PROC: 10E0XZZ Delivery of Products of Conception, External Approach (ICD-10-PCS; principal; 2017-12-03)
DX: O70.1 Second degree perineal laceration during delivery (principal); O99.824 Streptococcus B carrier state complicating childbirth; O09.523 Supervision of elderly multigravida, third trimester; Z37.0 Single live birth; Z3A.39 39 weeks gestation of pregnancy

== ENCOUNTER → 2018-01-20 | Outpatient (CLI) | payer BC ==
[~2018-01-20] MED LIST changes: -ACET-1693 PO; -DIPH1TAB87 PO; -ELDE1SYP PO; -FERR1TAB23 PO; -FOLI1TAB8 PO; -MAGN400T6 PO; -PRENTAB26 PO; -RANI150T3 PO
== END | disposition home or self-care (01) ==
LOC: C.PAPS 15:38
PROVIDERS: ATTEND Obstetrics & Gynecology
DX: Z39.2 Encounter for routine postpartum follow-up (principal)

== ENCOUNTER 2023-02-26 07:24 | Inpatient (IN) ==
--- NOTE | 2023-02-11 13:39 | PAT Medication Instructions ---
Medication Instructions Date of Service February 11, 2023 Home Medications acetaminophen 325 mg tablet 325 mg PO UD PRN diphenhydramine HCl 25 mg tablet 25 mg PO UD PRN sertraline 25 mg tablet 25 mg PO HS Continue as directed acetaminophen 325 mg tablet 325 mg PO UD PRN(if needed) DO NOT take the morning of surgery diphenhydramine HCl 25 mg tablet 25 mg PO UD PRN Take evening before surgery sertraline 25 mg tablet 25 mg PO HS Other Notes NOTHING TO EAT OR DRINK AFTER MIDNIGHT. If you have any questions please call us at [phone] or [phone] or [phone] or [phone]
--- NOTE | 2023-02-17 14:10 | Anesthesiology Consultation ---
Date of Service February 17, 2023 Assessment & Plan (1) Encounter for pre-operative examination: Plan - Case discussed in detail with Dr. Horton who advised patient is acceptable to proceed with surgery at current status not requiring further evaluation or testing from his standpoint. - check urine test STAT am DOS. - CSE 11/2017 L3-L4 2 attempts. Chart Review Chart Review: Acceptable Risk for Surgery and Patient seen in Pre Admission Testing Teaching & Discussion Pre-Anesthesia Teaching/Discussion Notes: Instructed NPO after midnight before surgery, except medications with 15 cc of water. Medication instructions provided according to the PAT guidelines. History Surgery Operation Date: 02/26/23 09:00 Proposed Procedures p Total Abdominal Hysterectomy - Candelario Blair MD Height/Weight Height: 5 ft 1.25 in Weight: 65 kg Allergies Allergy/AdvReac Type Severity Reaction Status Date / Time No Known Allergies Allergy Verified 02/11/23 12:45 Medications Home Medications Medication Instructions Recorded Confirmed Last Taken acetaminophen 325 mg tablet 325 mg PO UD PRN Back Pain 09/10/19 02/11/23 Unknown diphenhydramine HCl 25 mg tablet 25 mg PO UD PRN Allergy Symptoms 09/10/19 02/11/23 Unknown sertraline 25 mg tablet 25 mg PO HS 02/11/23 02/11/23 Unknown Past Medical History Medical History Depression Foot fracture, right resolved at this time, denies needing surgical intervention GERD (gastroesophageal reflux disease) controlled, stable per pt History of COVID-summer, home test, not hosp; sore throat, high fever, body aches, fatigue>resolved. Hx of migraines "more sinus related" Hx of scoliosis Irregular heartbeat per pt, multiple family members with dx-per pt "occasional extra skipped beats" Nausea and vomiting after administration of anesthetic agent denies needing scop patch Patient denies h/o stroke, seizures, heart attack, heart failure, DM, HTN, blood clots or blood transfusions. Exercise / Class Metabolic Activity II 4-5 Yardwork/Stairs/Walk up hill (shortness of breath with 1 FOS ongoing x past year per pt related to foot fracture/recovery, notes slight worsening with ongoing reduction in activity-no worsening in recent weeks or months; denies chest discomfort) Past Surgical History Surgical History History of dilatation and curettage Hx of breast augmentation Past Anesthesia History No Hx of Anesthesia Complications and Other (mother with PONV) History of PONV History of PONV (denies needing scop patch) and Hx of Motion Sickness Social History Smoking Status: Never smoker Do You Dip or Chew Tobacco: No Hx Alcohol Use: Yes alcohol intake frequency: holidays/special occasions only Hx Substance Use: No substance use type: does not use Review of Systems Patient denies chest pain, snoring, witnessed apneas, fever, chills, cough, wheezing, or palpitations. Physical Exam Vital Signs Vitals BP 118/72 P 68 TEMP 98.5 SP02 98% on RA RESP 17 Physical Full cervical extension range of motion without pain TMD < 3 finger breadths Mallampati Score 3, small oral opening Dentition: chipped tooth, denies loose teeth, caps/crowns, implants or bridges Lungs: normal respiratory effort. Good air movement, clear throughout to auscultation, no adventitious breath sounds Cardiac: regular rate and rhythm, no murmurs noted Carotid arteries: negative bruit bilat Lab Results Anesthesia Preop Results Results Anesthesia Widget: Na 138 mmol/L (136-145) 02/17/23 K 3.9 mmol/L (3.5-5.1) 02/17/23 Cl 105 mmol/L (98-107) 02/17/23 CO2 27 mmol/L (21-32) 02/17/23 BUN 12 mg/dl (6-23) 02/17/23 Creat 0.79 mg/dl (0.6-1.2) 02/17/23 Glucose Level 79 mg/dl (70-99(Fasting)) 02/17/23 PT 11.4 Seconds (9.0-12.0) 02/17/23 PTT 27.1 Seconds (21.0-31.0) 02/17/23 INR 1.0 (0.9-1.1) 02/17/23 Blood Type AB Negative 02/17/23 Antibody Screen NEGATIVE 02/17/23 Testing Laboratory Results 01/03/2023 WBC: 6.7 H/H: 13/41 PLATELETS: 240 - urine test too early for DOS, per Elisa with surgeon's office to cancel urine test for today and order for DOS. Electrocardiogram Date: 02/17/23 NSR, rate 62 bpm Right atrial enlargement COVID-19 Risk Screen Screening Information COVID-19 Screen Date: 02/17/23 Exposure 21 Days Family/Household +COVID Last 21 Days: No Exposure 10 Days Any COVID Exposure Last 10 Days: No Symptoms Last 10 Days Experienced COVID Sx Last 10 Days: No + COVID 0-90 Days COVID + in Last 0-90 Days: No
--- NOTE | 2023-02-20 09:07 | History & Physical Report ---
Date of Service February 20, 2023 Assessment & Plan (1) Uterine prolapse: Plan: Patient is admitted for a total abdominal hysterectomy with suspension of vaginal cuff. History of Present Illness Chief Complaint: Mass protruding from the vagina on coughing sneezing or straining Primary Care Provider: Raine Etienne MD Patient is a 42-year-old 3 para 2. She has had 1 spontaneous miscarriage. Her general health is good. She is on Zoloft 25 mg for anxiety. She uses condoms for control. She has symptoms of a mass protruding from her vagina or coughing on coughing or sneezing. Symptoms have been present for over 6 months. They have been getting progressively worse. She is now having difficulty having intercourse. She is presently being admitted for total abdominal hysterectomy with suspension of the vaginal cuff. Allergies Allergy/AdvReac Type Severity Reaction Status Date / Time No Known Allergies Allergy Verified 02/11/23 12:45 Home Medications Medication Instructions Recorded Confirmed Type acetaminophen 325 mg tablet 325 mg PO UD PRN Back Pain 09/10/19 02/11/23 History diphenhydramine HCl 25 mg tablet 25 mg PO UD PRN Allergy Symptoms 09/10/19 02/11/23 History sertraline 25 mg tablet 25 mg PO HS 02/11/23 02/11/23 History Past Med/Surg History Medical History Depression Foot fracture, right resolved at this time, denies needing surgical intervention GERD (gastroesophageal reflux disease) controlled, stable per pt History of COVID-19 summer 2021, home test, not hosp; sore throat, high fever, body aches, fatigue>resolved. Hx of migraines "more sinus related" Hx of scoliosis Irregular heartbeat per pt, multiple family members with dx-per pt "occasional extra skipped beats" Nausea and vomiting after administration of anesthetic agent denies needing scop patch Surgical History History of dilatation and curettage Hx of breast augmentation Social History Smoking Status: Never smoker Second Hand Exposure: No; Do You Dip or Chew Tobacco: No; Hx Alcohol Use: Yes Hx Substance Use: No Preferred Language: Kazakh Communication Ability: Effective Workday Director Required: No Beliefs That Will Affect Care: None Current Living Situation: Spouse and Family Feels Safe at Home: Yes Assistive Devices: Glasses Physical Exam Physical Exam: Patient is a 42-year-old well-developed well-nourished white female alert oriented x3 in no acute distress. Conjunctiva are white no evidence of jaundice ears had a normal light reflex bilaterally. Nose had normal mucosa. Septum was midline. Heart had a regular rate the regular rhythm S1 and S2 were normal. Lungs were clear to auscultation and percussion. Breast exam revealed status post breast augmentation. Abdomen was soft and nontender. Pelvic exam revealed a first to second-degree uterine prolapse. The cervix protruding from the outside of the vaginal opening. Bimanual examination revealed no adnexal masses appreciated. Uterus was top normal size anteverted nontender. There was no calf tenderness.
[~2023-02-26 07:24] MED LIST changes: +LACTATED RINGER'S 1,000 ML IV SCH; +LR 15ML/HR IV SCH; -PRENTAB65 PO; +cefOXitin 2,000 MG in DEXTROSE 5% 50 ML IV SCH
[2023-02-26] MEDS ORDERED: fentaNYL citrate PF 100 MCG/2 ML VIAL ONE ×2 (08:12→09:46)
[2023-02-26] MEDS ORDERED: MIDAZOLAM HCL 1 MG/ML 2ML VIAL ONE (08:12)
[2023-02-26] MEDS ORDERED: HYDROmorphone INJ 2 MG/ML SYR/VIAL ONE (08:13)
[2023-02-26] MEDS ORDERED: PROPOFOL IV EMULSION 10 MG/ML 20 ML VIAL IV ONE (08:14)
[2023-02-26] MEDS ORDERED: diphenhydrAMINE 50 MG/ML VIAL ONE (08:14)
[2023-02-26] MEDS ORDERED: SUGAMMADEX SODIUM 200 MG/2 ML VIAL IV ONE (08:14)
[2023-02-26] MEDS ORDERED: ROCURONIUM BROMIDE 10 MG/ML 5 ML VIAL IV ONE ×4 (08:14→11:31)
[2023-02-26] MEDS ORDERED: METOCLOPRAMIDE HCL INJ 5 MG/ML 2 ML VIAL ONE (08:14)
[2023-02-26] MEDS ORDERED: LIDOCAINE 2% 2 ML VIAL/AMP(20MG/ML) INFIL ONE (08:14)
[2023-02-26] MEDS ORDERED: DEXAMETHASONE SOD INJ 4 MG/ML VIAL ONE (08:14)
[2023-02-26] MEDS ORDERED: ONDANSETRON INJ 2 MG/ML 2 ML VIAL ONE (08:14)
[2023-02-26] MEDS ORDERED: KETOROLAC 30 MG/ML VIAL ONE (08:15)
--- NOTE | 2023-02-26 08:28 | History & Physical Bridge Note ---
Date of Service February 26, 2023 History & Physical Bridge Note I have examined the patient, reviewed the History & Physical and in the interval since the performance of the History & Physical I have noted the following changes of clinical significance: no changes noted
[2023-02-26] MEDS ORDERED: ATROPINE SULFATE 0.1 MG/ML 10ML SYR IV PRN (08:42)
[2023-02-26] MEDS ORDERED: ONDANSETRON INJ 2 MG/ML 2 ML VIAL IV PRN ×2 (08:42→13:49)
[2023-02-26] MEDS ORDERED: ePHEDrine sulfate 50 MG/ML AMP IV PRN (08:42)
[2023-02-26] MEDS ORDERED: HYDROmorphone INJ 2 MG/ML SYR/VIAL IV PRN (08:42)
[2023-02-26] MEDS ORDERED: fentaNYL citrate PF 100 MCG/2 ML VIAL IV PRN (08:42)
[2023-02-26] MEDS ORDERED: SCOPOLAMINE 1 MG TDSY TD ONE (08:53)
[2023-02-26] MEDS ORDERED: ACETAMINOPHEN 1000 MG/100 ML IV IV ONE (08:54)
[2023-02-26] MEDS ORDERED: FAMOTIDINE/PF 20 MG/2 ML VIAL IV ONE (08:54)
[2023-02-26] MEDS ORDERED: HEPARIN (PORCINE) 1000 UNIT/ML 10 ML (CATH LAB USE ONLY) ONE (08:57)
[2023-02-26] MEDS ORDERED: ALBUTEROL HFA 8 GM INHALER INH ONE (10:11)
[2023-02-26] MEDS ORDERED: ePHEDrine sulfate 50 MG/ML AMP ONE (10:13)
--- NOTE | 2023-02-26 11:53 | Post Operative Brief Note ---
Immediate Post Op Note v1 Date of Surgery February 26, 2023 Pre & Post Diagnosis Operation Date: 02/26/23 09:00 Pre-Op Diagnosis: 1st Degree Uterine Prolapse Post-Op Diagnosis: 1st Degree Uterine Prolapse I identified the patient and participated in the time-out.: Yes Procedure Operation Date: 02/26/23 09:00 Actual Procedures p Total Abdominal Hysterectomy(Not Applicable) - Candelario Blair MD Surgeon Candelario Blair MD Raw Shellfish Preparer none Estimated Blood Loss 50 Findings Consistent with Post-Op Diagnosis endometriosis prolapse Drains Salgado Catheter (16fr, placed by Shweta Finney at 0940) and [place] Drain (with safety pin) Anesthesia Type General
--- NOTE | 2023-02-26 12:07 | Operative Report ---
Post Operative Report Procedure Date: February 26, 2023 Pre & Post Diagnosis: Preoperative diagnosis symptomatic uterine prolapse second-degree postoperative diagnosis same endometriosis Time Out: I identified the patient and participated in the time-out. Procedure: Procedure total abdominal hysterectomy with suspension of vaginal cuff and obliteration of the cul-de-sac. Surgeon: Johnnie Regional Clinical Director: Regional Clinical Director none Estimated Blood Loss: Estimated blood loss 50 mL Findings: Findings second-degree uterine prolapse. Endometriosis. Specimens Uterus and cervix. Description of Procedure: Total abdominal hysterectomy. Suspension of vaginal cuff. Obliteration of the cul-de-sac.The patient was brought to the OR table and correctly identified by armband and conversation. General anesthesia was administered. Perineum and vagina were painted with Betadine paint. A Salgado catheter catheter was inserted aseptically into the bladder. Then connected to gravity drainage. The lower abdomen was painted with an alcohol-based sterilizing solution. The abdomen was then draped in usual sterile fashion. A Pfannenstiel incision was made and carried down to the anterior fascia. The fascia was incised transversely and from the underlying muscle by blunt and sharp dissection. The recti muscles were in the midline. The peritoneum was carefully raised and entered. An O'Hermilo[place]O'Franklin self retraining self-retaining contractor retractor was inserted into the abdominal cavity. 4 laparotomy packs were used to pack off the intestines and provide adequate exposure of the pelvis. What could be seen at this time was a top normal size uterus. Some endometriosis in the cul-de-sac. The ovaries and tubes were normal. The uterus was grasped with a double-tooth tenaculum. The round ligaments on either side were clamped with a Stephanie then cut distally and ligated with a chromic Chromic Gut suture and a silk tie. An incision was made above the vesicouterine fold. The bladder was advanced out of the operative field. The ovarian ligament and tubes were clamped close to the fundus of the uterus. They were clamped proximately and distally distally then cut. The distal stumps were ligated with a transfixion suture of chromic catgut and tagged. And also a silk tied. The uterine vessels were skeletonized. Clamped with a curved Marsha. Cut with a knife. Then doubly sutured with a chromic gut suture. The stumps were cauterized. The bladder was advanced out of the operative field. The cardinal ligaments were clamped with a curved [place] by sliding off the cervix. Then cutting the cardinal ligaments with a stump. And ligating with a Chromic Gut suture. This was done in 2 steps because of the length of the Lorrie Cardinal ligaments. Then the vagina was entered with a cautery posteriorly and then carried around the cervix. Excising the surgical specimen consisting of uterus and cervix. The angles of the vaginal cuff were ligated and tacked to the cardinal ligaments on each angle with a Chromic Gut suture. Then the anterior and posterior vaginal cuff was approximated at each angle with a [id number] suture of chromic gut suture which was tacked to the cardinal ligaments. The midportion of the vaginal cuff was whipstitched open with a continuous Chromic Gut suture. The cul-de-sac was then identified the uterosacral ligaments on either side were identified the ureters on either side to side were identified. A ccndib-co-pzpkh suture of heavy-duty Vicryl was used to obliterate the cul-de-sac and then and attach the anterior portion of the uterosacral ligaments to the stumps of the cardinal ligaments. A [place] drain with a safety pin was placed into the vaginal cuff. The peritoneum was then reapproximated with a continuous Chromic Gut suture on each side. And then tied in the midline ovaries were suspended out of the pelvic cavity. The pelvis was cleansed with an with's with normal saline. Packs were removed instrument count was good the abdomen was closed anatomically. Peritoneum was closed with a running chromic gut suture. Recti muscles were approximated with interrupted atxbac-[id number]-zsaxi suture of chromic catgut. Fascia was closed with a continuous Vicryl on each side tied in the midline. Subcu was approximated with a running plain. Skin edges were approximated with staple clips. Patient Toller procedure well Attestation: I attest to the content of the Intraoperative Record and any orders documented therein. Any exceptions are noted below.
--- NOTE | 2023-02-26 13:45 | Anesthesiology Progress Note ---
Date of Service February 26, 2023 Anesthesia Post Procedure Vital Signs Vital Signs: Temp Pulse Pulse Resp BP Pulse Ox O2 Del Method 02/26/23 13:20 70 12 124/67 98 Nasal Cannula 02/26/23 13:10 36.3 C L 71 12 122/63 97 Oxymask 02/26/23 13:00 66 15 123/65 97 Oxymask 02/26/23 12:50 70 13 120/59 L 99 Oxymask 02/26/23 12:40 72 22 115/75 99 Oxymask 02/26/23 12:30 73 10 L 114/72 99 Oxymask 02/26/23 12:21 36 C L 82 14 133/72 99 Oxymask 02/26/23 07:48 36.7 C 76 16 126/72 98 Room Air O2 Flow Rate 02/26/23 13:20 2 02/26/23 13:10 4 02/26/23 13:00 6 02/26/23 12:50 6 02/26/23 12:40 8 02/26/23 12:30 8 02/26/23 12:21 8 02/26/23 07:48 Pain Intensity Lower Abdomen: Pain Intensity: 9 Transfer of Care Handoff Completed per policy Notes Mental Status: alert / awake / arousable and participated in evaluation Patient Amnestic to Procedure: Yes Nausea / Vomiting: adequately controlled Pain: adequately controlled Airway Patency, RR, SpO2: stable & adequate BP & HR: stable & adequate Hydration State: stable & adequate Anesthetic Complications: no major complications apparent and Pt Satisfied with anesthetic care
[2023-02-26] MEDS ORDERED: SENNA 8.6 MG TAB PO PRN (13:49)
[2023-02-26] MEDS ORDERED: MAGNESIUM HYDROXIDE SUSP 30 ML UDC PO PRN (13:49)
[2023-02-26] MEDS ORDERED: MEPERIDINE HCL 50 MG/ML CARP IV PRN (13:49)
[2023-02-26] MEDS ORDERED: bisacodyL 10 MG SUPP PR PRN (13:49)
[2023-02-26] MEDS ORDERED: PROMETHAZINE HCL 25 MG in SODIUM CHLORIDE 0.9% 50 ML IV PRN (13:49)
[2023-02-26] MEDS: KETOROLAC 30 MG/ML VIAL IV PRN ×2 (14:19→22:12)
[2023-02-26] MEDS: D5W AND LACTATED RINGERS 1,000 ML IV SCH ×2 (14:19→22:23)
[2023-02-27] MEDS: KETOROLAC 30 MG/ML VIAL IV PRN (04:23)
--- NOTE | 2023-02-27 08:57 | Gynecologic Progress Note ---
Date of Service February 27, 2023 Assessment & Plan Admission and Anticipated Discharge Date Admission Date: February 26, 2023 QUANTITATIVE CONSULTANT Progress Note abdomen soft and non tender bowel sounds present passing flatus incision is clean and dry no calf tenderness vaginal bleeding scant hgb 11.6 Results & Data Vital Signs (Past 12 Hours) Vital Signs Temp Pulse Pulse Resp BP BP Pulse Ox 02/27/23 07:15 37.4 C 68 16 101/60 96 02/27/23 03:05 37.1 C 73 20 109/56 L 98 02/26/23 23:30 36.8 C 82 20 112/62 100 O2 Del Method O2 Flow Rate 02/27/23 07:15 Room Air 02/27/23 03:05 Room Air 2 02/26/23 23:30 Nasal Cannula 2
[2023-02-27] MEDS: oxyCODONE/ACETAMINOPHEN 5mg/325mg TAB PO PRN ×3 (09:35→21:02)
[2023-02-27] MEDS: IBUPROFEN 600 MG TAB PO PRN ×2 (12:30→21:03)
[2023-02-27 19:04] LABS: Hematocrit (blood only) 31.9 % (37.0-47.0); Hemoglobin 10.4 g/dl (12.0-16.0)
[2023-02-28] MEDS: IBUPROFEN 600 MG TAB PO PRN ×3 (01:05→11:22)
[2023-02-28] MEDS: oxyCODONE/ACETAMINOPHEN 5mg/325mg TAB PO PRN ×3 (01:05→11:21)
--- NOTE | 2023-02-28 08:45 | Gynecologic Progress Note ---
Date of Service February 28, 2023 Assessment & Plan Admission and Anticipated Discharge Date Admission Date: February 26, 2023 INDEPENDENT CONSULTANT Progress Note abdomen soft and non tender incision is clean and dry no calf tenderness ambulating well sissy drain removed fro the vagina vaginal bleeding scant hgb 10.4 Results & Data Vital Signs (Past 12 Hours) Vital Signs Temp Pulse Resp BP Pulse Ox O2 Del Method 02/28/23 01:25 36.9 C 70 16 119/60 97 Room Air
--- NOTE | 2023-02-28 09:01 | Discharge Summary ---
Date of Service February 28, 2023 Admission HPI Per Admitting Provider Patient is a 42-year-old 3 para 2. She has had 1 spontaneous miscarriage. Her general health is good. She is on Zoloft 25 mg for anxiety. She uses condoms for control. She has symptoms of a mass protruding from her vagina or coughing on coughing or sneezing. Symptoms have been present for over 6 months. They have been getting progressively worse. She is now having difficulty having intercourse. She is presently being admitted for total abdominal hysterectomy with suspension of the vaginal cuff. Patient is a 42-year-old 3 para 2 admitted for symptomatic uterine prolapse. Patient has been experience a mass protruding from her vagina on coughing or sneezing. Difficulty having intercourse. Patient was admitted given prophylactic antibiotics. Underwent a total abdominal hysterectomy. With suspension of the vaginal cuff. And partial obliteration of the cul-de-sac. Celestino drain was placed in the vaginal cuff. Midportion of the cuff was left open. Postoperatively the patient did well. She remained afebrile. Her preoperative hemoglobin was 11.4. Postoperatively hemoglobin fell to 10.6. On her second postoperative day the [place] drain with a safety pin was removed. She was ambulating well. Eating well. Pain was well controlled with a combination of Percocet and Motrin. Patient requested discharge. Patient was instructed to call the office if she had a temperature over 100. Her heavy bleeding consisting of soaking a pad an hour for 2 hours. She was told to return to the office in 1 week for removal of sushant. A prescription was called into her pharmacy for Percocet. She was discharged to be followed in the home in office. Discharge Data Procedures Performed Operation Date: 02/26/23 09:00 Actual Procedures p Total Abdominal Hysterectomy(Not Applicable) - Candelario Blair MD
--- NOTE | 2023-02-28 09:02 | Discharge Summary ---
Date of Service February 28, 2023 Admission HPI Per Admitting Provider Patient is a 42-year-old 3 para 2. She has had 1 spontaneous miscarriage. Her general health is good. She is on Zoloft 25 mg for anxiety. She uses condoms for control. She has symptoms of a mass protruding from her vagina or coughing on coughing or sneezing. Symptoms have been present for over 6 months. They have been getting progressively worse. She is now having difficulty having intercourse. She is presently being admitted for total abdominal hysterectomy with suspension of the vaginal cuff. Discharge Data Procedures Performed Operation Date: 02/26/23 09:00 Actual Procedures p Total Abdominal Hysterectomy(Not Applicable) - Candelario Blair MD
== END 2023-02-28 14:45 | disposition home or self-care (01) | DRG 743 ==
LOC: ASU 07:24 → 4E1 12:00

== ENCOUNTER 2024-11-19 09:36 | Observation (INO) ==
--- NOTE | 2024-11-10 14:08 | Anesthesiology Consultation ---
Date of Service November 10, 2024 Assessment & Plan (1) Encounter for pre-operative examination: - check EKG and urine test STAT am DOS. - Per coal trimmer on 11/10/24: No known infectious disease contacts, current infectious disease symptoms in past 10 days or COVID positive test result in the past 30 days. Chart Review Chart Review: Acceptable Risk for Surgery and Patient NOT seen in Pre Admission Testing History Surgery Operation Date: 11/19/24 11:20 Proposed Procedures p Anterior and Posterior Colporraphy, Removal of Perineal Skin Tag, Insertion of Suprapubic Catheter - Candelario Blair MD Height/Weight Height: 5 ft 1.25 in Weight: 61.235 kg Allergies Allergy/AdvReac Type Severity Reaction Status Date / Time No Known Allergies Allergy Verified 11/10/24 12:19 Medications Home Medications Medication Instructions Recorded Confirmed Last Taken acetaminophen 325 mg tablet 325 mg PO UD PRN Back Pain 09/10/19 11/10/24 Unknown diphenhydramine HCl 25 mg tablet 25 mg PO UD PRN Allergy Symptoms 09/10/19 11/10/24 Unknown fluticasone propionate 50 1 spray intranasal DAILY PRN prn 11/10/24 11/10/24 Unknown mcg/actuation nasal spray,suspension Past Medical History Medical History (Updated 11/10/24 @ 14:06 by Yaritza Villeda PA-C) Depression Eye problem right eye dryness Family history of reaction to anesthesia mother nausea Foot fracture, right resolved at this time, denies needing surgical intervention GERD (gastroesophageal reflux disease) controlled, stable per pt History of COVID-19 summer 2021, home test, not hosp; sore throat, high fever, body aches, fatigue>resolved. Hx of migraines "more sinus related" Hx of scoliosis Irregular heartbeat per pt, multiple family members with dx-per pt "occasional extra skipped beats" Nausea and vomiting after administration of anesthetic agent denies needing scop patch Urge incontinence of urine Uterine prolapse Past Surgical History Surgical History History of dilatation and curettage Hx of breast augmentation Social History Smoking Status: Never smoker Do You Dip or Chew Tobacco: No Hx Alcohol Use: No alcohol intake frequency: holidays/special occasions only Hx Substance Use: No substance use type: does not use
[~2024-11-19 09:36] MED LIST changes: +DEXAMETHASONE SOD INJ 4 MG/ML VIAL ONE; -LACTATED RINGER'S 1,000 ML IV SCH; +LIDOCAINE 2% 2 ML VIAL/AMP(20MG/ML) INFIL ONE; -LR 15ML/HR IV SCH; +MIDAZOLAM HCL 1 MG/ML 2ML VIAL ONE; +ONDANSETRON INJ 2 MG/ML 2 ML VIAL ONE; +PROPOFOL IV EMULSION 10 MG/ML 20 ML VIAL IV ONE; +ROCURONIUM BROMIDE 10 MG/ML 5 ML VIAL IV ONE; -cefOXitin 2,000 MG in DEXTROSE 5% 50 ML IV SCH; +fentaNYL citrate PF 100 MCG/2 ML VIAL ONE
[2024-11-19] MEDS ORDERED: ePHEDrine sulfate 50 MG/ML AMP IV PRN ×2 (09:44→14:31)
[2024-11-19] MEDS ORDERED: ATROPINE SULFATE 0.1 MG/ML 10ML SYR IV PRN (09:44)
[2024-11-19] MEDS ORDERED: ONDANSETRON INJ 2 MG/ML 2 ML VIAL IV PRN (09:44)
[2024-11-19] MEDS ORDERED: HYDROmorphone INJ 1 MG/ML SYRINGE IV PRN (09:44)
[2024-11-19] MEDS ORDERED: DROPERIDOL 5 MG/2 ML VIAL IV PRN (09:44)
[2024-11-19] MEDS ORDERED: fentaNYL citrate PF 100 MCG/2 ML VIAL IV PRN (09:44)
[2024-11-19 10:23] LABS: Basophils # (auto) 0.02 K/uL (0.00-0.20); Basophils % (auto) 0.3 %; Eosinophils # (auto) 0.09 K/uL (0.00-0.50); Eosinophils % (auto) 1.4 %; Hematocrit (blood only) 41.3 % (37.0-47.0); Hemoglobin 13.6 g/dl (12.0-16.0); Immature Granulocytes # (auto) 0.02 K/uL (0.01-0.20); Immature Granulocytes % (auto) 0.3 %; Lymphocytes % (auto) 38.9 %; Mean Corpuscular Hemoglobin 29.6 pg (25.0-34.0); Mean Corpuscular Hgb Conc 32.9 g/dL (32.0-36.0); Mean Corpuscular Volume 89.8 fL (80.0-100.0); Mean Platelet Volume 10.3 fL (9.4-12.4); Monocytes % (auto) 7.8 %; Neutrophils % (auto) 51.3 %; Platelet Count 263 K/uL (130-400); RDW Coefficient of Variation 13.2 % (11.5-14.5); RDW Standard Deviation 43.5 fL (36.4-46.3); White Blood Count 6.43 K/ul (4.8-10.8)
[2024-11-19] MEDS ORDERED: ACETAMINOPHEN 1000 MG/100 ML IV IV ONE (10:23)
[2024-11-19] MEDS ORDERED: MoRPHine SULFATE PF 1 MG/ML 10 ML AMP/VIAL ONE (10:23)
--- NOTE | 2024-11-19 10:23 | History & Physical Bridge Note ---
Date of Service November 19, 2024 History & Physical Bridge Note I have examined the patient, reviewed the History & Physical and in the interval since the performance of the History & Physical I have noted the following changes of clinical significance: no changes noted
[2024-11-19] MEDS: SCOPOLAMINE 1 MG/72 HR TDSY PATCH TD ONE (10:36)
--- NOTE | 2024-11-19 10:53 | History & Physical Bridge Note ---
Date of Service November 19, 2024 History & Physical Bridge Note I have examined the patient, reviewed the History & Physical and in the interval since the performance of the History & Physical I have noted the following changes of clinical significance: no changes noted Assessment & Plan (1) Uterine prolapse: None (2) Mixed incontinence urge and stress: Acute (3) Urge incontinence of urine: Acute Plan removal perineal skin tag insertion suprapubic cystocath Treatment Options observation Treatment Plan removal perineal skin tag insertion suprapubic cystocath
[2024-11-19] MEDS ORDERED: fentaNYL citrate PF 100 MCG/2 ML VIAL ONE (11:28)
[2024-11-19] MEDS: cefOXitin 2,000 MG in DEXTROSE 5 % MINI-B 50 ML IV SCH (11:32)
[2024-11-19] MEDS ORDERED: PROPOFOL IV EMULSION 10 MG/ML 20 ML VIAL IV ONE ×2 (11:57)
[2024-11-19] MEDS: PREMARIN VAG CRM 14 APPLN/30 GM TUBE ONE (12:31)
[2024-11-19] MEDS ORDERED: ROCURONIUM BROMIDE 10 MG/ML 5 ML VIAL IV ONE (12:42)
[2024-11-19] MEDS ORDERED: SUGAMMADEX SODIUM 200 MG/2 ML VIAL IV ONE (13:22)
--- NOTE | 2024-11-19 13:34 | Operative Report ---
PG Post Operative Report Pre & Post Diagnosis Operation Date: 11/19/24 10:40 Pre-Op Diagnosis: Second Degree Cystocele, First Degree Rectocele, Uterine prolapse Post-Op Diagnosis: Second Degree Cystocele, First Degree Rectocele, Uterine prolapse Procedure Operation Date: 11/19/24 10:40 Actual Procedures p Anterior and Posterior Colporrhaphy, Removal of Perineal Skin Tag, Insertion of Suprapubic Catheter(Not Applicable) - Candelario Blair MD Surgeon Yung Flanagan MD Estimated Blood Loss 50 Description of Procedure At the conclusion of Johnnie's portion of the case he asked for my assistance with cystoscopy and placement of a suprapubic catheter. The patient was in lithotomy position and still sterilely prepped and draped. There is a vaginal packing in place but the urethra was easily exposed. I had a 21 Cambodian cystoscope into the bladder and performed a full inspection. Mucosa is healthy there was no trauma or blood within the bladder. I was able to inflate the bladder until I could easily palpate the tip of the scope through the anterior abdominal wall approximately 2-1/2 cm above the pubic symphysis. In this location I utilized a finding needle to pass from the midline into the dome of the bladder. I then used an 11 blade to arley the skin, fascia, detrusor muscle and then advance a 10 Cambodian pigtail catheter through this incision and into the bladder. I deployed the pigtail under direct vision and could easily see the curl. This was positioned appropriately. The suture holding the curl in place was fixed to the top of the catheter in standard fashion. A 3-0 nylon suture was placed through the skin and utilized to secure the drain externally. A drainage bag was attached and my portion of the case was concluded. She tolerated this very well. The rest of the dictation as performed by Dr. Blair I attest to the content of the Intraoperative Record and any orders documented therein. Any exceptions are noted below.
--- OUTSIDE RECORDS SUMMARY | 2024-11-19 13:34 | External Medical Summary | Summary of Care ---
Author Name Unknown Organization [facility] Address [address] [place] [facility] [place] [address] Phone [phone] Care Team Providers Care General Pediatrician Name Role Phone Erika Rebolledo MD Primary Care Provider [phone] Reason for Visit * Reason Comments Acute Encounter Details Date Type Department Care Team (Late st Contact Info) Description 11/15/2024 3:40 PM EDT Office Visit Family Medicine [address] [id number] Collette Yates [address] [place] [address] Throat pain* Allergies No known active allergiesdocumented as of this encounter (statuses as of 11/16/2024) Medications Eysuvis 0.25 % Ophthalmic Suspension (Loteprednol Etabonate) Instill into eye. Active QC Womens Daily Multivitamin Oral Tablet Take by mouth. Activ e Fluticasone Propionate 50 MCG/ACT Nasal Suspension (Flonase) Administer 2 Sprays into each nostril in the morning. 18 mL 11 Active documented as of this encounter (statuses as of 11/16/2024) Active Problems Problem Noted Date Diagnosed Date Viral infection 09/02/2015 Nonallergic rhinitis 09/02/2015 Rosacea 02/09/2014 Allergic rhinitis Other acne documented as of this encounter (statuses as of 11/16/2024) Resolved Problems Problem Noted Date Diagnosed Date Resolved Date Moderate episode of recurren t major depressive disorder 02/13/2021 09/07/2024 PCOS (polycystic ovarian syndrome) 10/23/2016 02/20/2024 Major depressive disorder Overview (06/24/2017): ICD-10 update of inactive term Major depressive disorder Overview (06/24/2017): Resolved per Duplicate Protocol #2. ICD-10 update of inactive term Allergic rhinitis 09/29/2008 Overview (09/29/2008): Resolved per Duplicate Protocol #2. documented as of this encounter (statuses as of 11/16/2024) Immunizations Name Administration Dates Next Due COVID-19 mRNA, LNP-s, No Pre serve, 2-Dose Series (Pfizer) 07/24/2021,12/28/2020,12/05/2020 DTWP - Dipth/Tet/Whole Cell Pertussis 04/15/1999 PPD 03/13/2022 Seasonal Influenza, PF, 6 M & above, IM , (FluLaval or Fluzone) 06/07/2023,06/08/2022,06/11/2021,2019,06/08/2019,06/06/2018,06/14/2017 Seasonal Influenza, Trivalen t, (IIV3), PF, (Fluzone) 08/04/2024,07/28/2024 TD - Tetanus/Diptheria (ADULT) 04/01/1999 TD, Preservative Free 02/04/2020 TDAP, Age 7 and older, IM (Adacel) 07/10/2009 documented as of this encounter Social History Tobacco Use Types Packs/Day Years Used Date Smoking Tobacco: Never Passive Smoke Exposure: Past Smokeless Tobacco: Never Alcohol Use Standard Drinks/Week Comments Yes 0 (1 standard drink = 0.6 oz pur e alcohol) wine occasionally PHQ-2 Answer Date Recorded PHQ Adult Total Score 0 02/20/2024 Hunger Vital Sign Answer Date Recorded Within the past 12 months, y ou worried that your food would run out before you got the money to buy more. Never true 07/18/20 24 Within the past 12 months, t he food you bought just didn't last and you didn't have money to get more. Never true 07/18/2024 Childcare Answer Date Recorded Do you feel overwhelmed with taking care of a child, family member or friend? No 07/18/2024 Does your family need help f inding childcare? (Household - for ages 0-17 years) Not on file 07/18/2024 Clothing Answer Date Recorded Have you been unable to get clothing when it was really needed? No 07/18/2024 Is your family able to get c lothes or diapers when needed? (Household - for ages 0-17 years) Not on file 07/18/2024 Personal Safety Answer Date Recorded Do you feel unsafe or have concerns for your saf ety? No 07/18/2024 Do you have concerns for you r family's safety? (Household - for ages 0-17 years) Not on file 07/18/2024 Utilities Answer Date Recorded Do you have trouble paying y our heating, water, or electric bill? No 07/18/2024 Is your family able to pay t he heat, water, or electric bill? (Household - for ages 0-17 years) Not on file 07/18/2024 Does your family have access to good internet? (Household - for ages 0-17 years) Not on file 07/18/2024 Employment Status Answer Date Recorded Are you unemployed or without regular income? No 07/18/2024 Does the household have a re lar source of income? (Household - for ages 0-17 years) Not on file 07/18/2024 Social Connections Answer Date Recorded How often do you feel lonely or isolated from th ose around you? Never 07/18/2024 Financial Resource Strain Answer Date R ecorded Do you have any trouble payi ng for your medications, or do you think you might in the future? No 07/18/2024 Does your family have troubl e paying for medicine? (Household - for ages 0-17 years) Not on file 07/18/2024 Transportation Needs Answer Date Record ed Do you have trouble getting a ride to medical visits or work? (Adult - for ages 18 years and over) Not on file 07/18/2024 Does your family have a hard time getting a ride to doctors visits? (Household - for ages 0-17 years) Not on file 07/18/2024 Has lack of transportation k ept you from medical appointments, meetings, work, or from getting things needed for daily living? Check all that apply. No 07/18/2024 Do you (or your family) have trouble finding or paying for a ride (transportation)? (Household - for ages 0-17 years) Not on file 07/18/2024 Housing Stability Answer Date Recorded Do you currently live in a s helter or have no steady place to sleep at night? No 07/18/2024 Do you think you are at risk of becoming homeless? (Adult - for ages 18 years and over) Not on file 07/18/2024 Does your family worry about paying for your home or becoming homeless? (Household - for ages 0-17 years) Not on file 1 09/17/2023 Are you homeless or worried that you might be in the future? No 07/18/2024 Are you (or your family) sajan eless or worried that you might be in the future? (Household - for ages 0-17 years) Not on file Food Insecurity Answer Date Recorded Do you need food for this week? No 07/18/2024 Are you able to get enough f ood for your family? (Household - for ages 0-17 years) Not on file 07/18/2024 Does your family need food t his week? (Household - for ages 0-17 years) Not on file 07/18/2024 Do you always have enough fo od for your family? (Household - for ages 0-17 years) Not on file 07/18/2024 Food Insecurity Answer Date Recorded Within the past 12 months, y ou worried that your food would run out before you got the money to buy more. Never true 07/18/20 24 Within the past 12 months, t he food you bought just didn't last and you didn't have money to get more. Never true 07/18/2024 Do you need food for this week? 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 on file No t on file Not on file depression Not on file Not on file Not on file documented as of this encounter Last Filed Vital Signs Vital Sign Reading Time Taken Comments Blood Pressure 103/69 11/15/2024 3:45 PM EDT Pulse 64 11/15/2024 3:45 PM EDT Temperature 36.8 C (98.3 F) 11/15/2024 3:45 PM ED T Respiratory Rate - - Oxygen Saturation 100% 11/15/2024 3:45 PM EDT Inhaled Oxygen Concentration - - Weight 65.5 kg (144 lb 8 oz) 11/15/2024 3:45 PM EDT Height - - Body Mass Index 27.08 11/11/2024 10:41 AM EDT documented in this encounter Nursing Notes * Jerica Vora CMA - 11/15/2024 3:44 PM EDT Sore throat that started Friday of last week. Some sneezing. Prior to the sore throat there was sinus pressure. She has a surgery on Friday so she is concerned about strep. documented in this encounter Plan of Treatment Upcoming Encounters Date Type Department Care Team (Late st Contact Info) Description 01/27/2025 1:15 PM EDT Office Visit General Surgery, [facility] [address] [phone] Sj Rai MD [address] [place] [address] 02/22/2025 8:40 AM EDT Office Visit General Internal Medicine [facility] [address] [place] [address] Raine Etienne MD [address] [facility] [place] [address] Pending Results Name Type Priority Associated Diagnoses Date /Time STREP A SCREEN, POINT OF CARE (ENTER/EDIT) Point of Care Testing Routine Throat pain 11/15/2024 Health Maintenance Due Date Last Done Comments HIV Screening 1995 Hepatitis C Screening 1998 Hepatitis B Vaccine (1 of 3 - 19+ 3-dose series) 1999 COVID-19 Vaccine ( - 2023- season) 2024 07/24/2021, 12/28/2020, 12/05/2020 Depression Screening 02/19/2025 02/20/2024 Mammogram 08/30/2025 08/30/2024, 08/02, 09/18/2022, Additional history exists Diabetes Screening 07/28/2027 07/28/2024, 1 09/12/2023, 02/20/2024, Additional history exists Lipid Panel 02/19/2029 02/20/2024, 07/02, 07/06/2015 DTap/Tdap Vaccines (4 - Td or Tdap) 02/03/2030 02/04/2020, 07/10/2009, 04/15/1999, Additional history exists Cervical Cancer Screening Discontinued Pap Smear Discontinued 01/26/2019, 04/0 09/2012, 11/22/2012, Additional history exists Influenza Vaccine (FLU shot) Completed 08/04/2024, 07/28/2024, 06/07/2023, Additional history exists HPV (Gardasil) Vaccine Aged Out No lo nger eligible based on patient's age to complete this topic HPV/Co-Test Discontinued MENINGOCOCCAL (MENACTRA/MENVEO) Aged Out No longer eligible based on patient's age to complete this topic Meningitis B Vaccine (Bexsero/Trumemba) Aged Out No longer eligible based on patient's age to complete this topic Pneumococcal Vaccine: Pediatrics (0 to 5 Years) and At-Risk Patients (6 to 18 Years and 19+ Years) Aged Out No longer eligib le based on patient's age to complete this topic documented as of this encounter Medical Devices Not on filedocumented as of this encounter Visit Diagnoses Diagnosis Throat pain- Primary documented in this encounter Care Teams General Pediatrician Relationship Specialty Start Date End Date Erika Rebolledo MD [address] [place] [address] [place] [address] PCP - General Internal Medicine 03/13/24 documented as of this encounter
--- OUTSIDE RECORDS SUMMARY | 2024-11-19 13:35 | External Medical Summary | Summary of Care ---
Author Name Unknown Organization [facility] Address [address] [facility] [place] [address] Phone [phone] Care Team Providers Care Admitting Office Escort Name Role Phone Erika Rebolledo MD Primary Care Provider Reason for Visit * Reason Onset Date Comments Surgery 09/20/2024 Encounter Details Date Type Department Care Team (Late st Contact Info) Description 09/20/2024 Telephone General [facility], [facility] [place] [address] Sj Rai MD [address] [facility] [place] [address] Surgery Allergies No known active allergiesdocumented as of this encounter (statuses as of 09/20/2024) Medications Eysuvis 0.25 % Ophthalmic Suspension (Loteprednol Etabonate) Instill into eye. Active QC Womens Daily Multivitamin Oral Tablet Take by mouth. Activ e Fluticasone Propionate 50 MCG/ACT Nasal Suspension (Flonase) Administer 2 Sprays into each nostril in the morning. 18 mL 5 Active documented as of this encounter (statuses as of 09/20/2024) Active Problems Problem Noted Date Diagnosed Date Viral infection 09/02/2015 Nonallergic rhinitis 09/02/2015 Rosacea 02/09/2014 Allergic rhinitis Other acne documented as of this encounter (statuses as of 09/20/2024) Resolved Problems Problem Noted Date Diagnosed Date [...] as of this encounter (statuses as of 09/20/2024) Immunizations Name Administration Dates Next Due COVID-19 [...] ages 0-17 years) Not on file 07/18/2024 Comments No Sex and Gender Information Value Date Recorded Sex Assigned at Female 02/02/2019 10:33 AM EDT Legal Sex Female 5:44 AM EST Gender Identity Female 02/02/2019 10:33 AM EDT Sexual Orientation Straight 02/02/2019 10 :33 AM EDT Occupation Industry Job Start Date Job End Date 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 She will call to get on the schedule sometime in December. * Telephone Encounter - Hanna Puente OSA - 09/20/2024 3:13 PM EST When surgery time frame would be for surgery and how long recovery would be and when might she be able to return to work. She only has Oct to do the surgery that's why requesting time frame. documented in this encounter Plan of Treatment Upcoming Encounters Date Type Department Care Team (Late st Contact Info) Description 01/27/2025 8:30 AM EDT Office Visit General Surgery, [facility] [address] [address] Sj Rai MD [address] [address] 02/22/2025 8:40 AM EDT [facility] [place] [address] [place] [address] Raine Etienne MD [address] [place] [address] Health Maintenance Due Date Last Done Comments HIV Screening 1995 Hepatitis C Screening 1998 Hepatitis B Vaccine (1 of 3 - 19+ 3-dose series) 1999 COVID-19 Vaccine ( season) 2024 07/24/2021, 12/28/2020, 12/05/2020 Depression Screening 02/19/2025 02/20/2024 Mammogram 08/30/2025 08/30/2024, 08/02, 09/18/2022, Additional history exists Diabetes Screening 07/28/2027 07/28/2024, 1 09/12/2023, 02/20/2024, Additional history exists Lipid Panel 02/19/2029 02/20/2024, 07/02, 07/06/2015 DTap/Tdap Vaccines (4 - Td or Tdap) 02/03/2030 02/04/2020, 07/10/2009, 04/15/1999, Additional history exists Cervical Cancer Screening Discontinued Pap Smear Discontinued 01/26/2019, 09/2012, 11/22/2012, Additional history exists Influenza Vaccine [...] Not on filedocumented as of this encounter Care Teams Admitting Office Escort Relationship Specialty Start Date End Date Erika Rebolledo MD [address] [place] [address] PCP - General Internal Medicine 03/13/24 documented as of this encounter
--- OUTSIDE RECORDS SUMMARY | 2024-11-19 13:35 | External Medical Summary | Summary of Care ---
Author Name Unknown Organization [facility] Address [address] [place] [facility] [place] [place] [address] Phone [phone] Care Team Providers Care Ends Breakage Clerk Name Role Phone Erkia Rebolledo MD Primary Care Provider [phone] Reason for Visit * Reason Onset Date Comments Surgery 09/20/2024 Encounter Details Date Type Department Care Team (Late st Contact Info) Description 09/20/2024 Telephone General Surgery, [facility] [place] [address] Sj Rai MD [address] [facility] [place] [address] Surgery Allergies No known active allergiesdocumented as [...] Start Date Job End Date 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 No t [...] 8:30 AM EDT Office Visit General Surgery, [facility] [address] [address] Sj Rai MD [address] [address] 02/22/2025 8:40 AM EDT Office Visit General Internal [facility] [place] [address] [place] [address] Raine Etienne MD [address] [place] [address] Health Maintenance Due Date Last Done Comments [...] filedocumented as of this encounter Care Teams Ends Breakage Clerk Relationship Specialty Start Date End Date Erika Rebolledo MD [address] [place] [address] PCP - General Internal Medicine 03/13/24 documented as of this encounter
--- OUTSIDE RECORDS SUMMARY | 2024-11-19 13:35 | External Medical Summary | Summary of Care ---
Author Name Unknown Organization [facility] Address [address] [place] [address] Phone [phone] Care Team Providers Care Rn Case Mgr Name Role Phone Erika Rebolledo MD Primary Care Provider [phone] Reason for Visit * Reason Onset Date Comments Surgery 09/23/2024 Encounter Details Date Type Department Care Team (Late st Contact Info) Description 09/23/2024 Telephone General Surgery, [facility] [address] [place] [address] Services, Scheduling [address] [place] [address] Surgery Allergies No known active allergiesdocumented as of this encounter (statuses as of 09/23/2024) Medications Eysuvis 0.25 % Ophthalmic Suspension (Loteprednol Etabonate) Instill into eye. Active QC Womens Daily Multivitamin Oral Tablet Take by mouth. Activ e Fluticasone Propionate 50 MCG/ACT Nasal Suspension (Flonase) Administer 2 Sprays into each nostril in the morning. 18 mL Active documented as of this encounter (statuses as of 09/23/2024) Active Problems Problem Noted Date Diagnosed Date Viral infection 09/02/2015 Nonallergic rhinitis 09/02/2015 Rosacea 02/09/2014 Allergic rhinitis Other acne documented as of this encounter (statuses as of 09/23/2024) Resolved Problems Problem Noted Date Diagnosed Date [...] as of this encounter (statuses as of 09/23/2024) Immunizations Name Administration Dates Next Due COVID-19 [...] 07/18/2024 Does the household have a re gular source of income? 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 on file No t on file Not on file depression Not on file Not on file Not on file documented as of this encounter Miscellaneous Notes * Telephone Encounter - NorwoodLandon serrano S - No Ob/Or, ELIANA - 09/23/2024 8:34 AM EST Jerica avila would like to schedule her surgery Please call her back Thank you landon documented in this encounter Plan of Treatment Upcoming Encounters Date Type Department Care Team (Late st Contact Info) Description 02/22/2025 8:40 AM EDT Office Visit General Internal Medicine [place] [address] [place] [address] Raine Etienne MD [address] [place] [address] Health Maintenance Due Date Last Done Comments [...] filedocumented as of this encounter Care Teams Rn Case Mgr Relationship Specialty Start Date End Date Erika Rebolledo MD [address] [place] [address] PCP - General Internal Medicine 03/13/24 documented as of this encounter
--- OUTSIDE RECORDS SUMMARY | 2024-11-19 13:35 | External Medical Summary | Summary of Care ---
Author Name Unknown Organization [facility] Address [address] [facility] [place] [address] Phone [phone] Care Team Providers Care Insurance Case Manager Name Role Phone Erika Rebolledo MD Primary Care Provider [phone] Encounter Details Date Type Department Care Team (Late st Contact Info) Description 11/11/2024 10:30 AM EDT Office Visit Gynecology/Obstetrics [facility] [address] [place] [address] Candelario Blair MD [address] [place] [address] Pre-op testing* Allergies No known active allergiesdocumented as of this encounter (statuses as of 11/11/2024) Medications Eysuvis 0.25 % Ophthalmic Suspension (Loteprednol Etabonate) Instill into eye. Active QC Womens Daily Multivitamin Oral Tablet Take by mouth. Act jorje Fluticasone Propionate 50 MCG/ACT Nasal Suspension (Flonase) Administer 2 Sprays into each nostril in the morning. 18 mL 11 5 Active Amoxicillin 500 MG Oral Capsule (Amoxil) Take 1 Capsule by mouth in the morning and 1 Capsule before bedtime. Do all this for 10 days. 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 on file No t on file Not on file depression Not on file Not on file Not on file documented as of this encounter Last Filed Vital Signs Vital Sign Reading Time Taken Comments Blood Pressure 100/62 11/11/2024 10:41 AM EDT Pulse - - Temperature 36.6 C (97.9 F) 11/11/2024 10:41 AM E DT Respiratory Rate - - Oxygen Saturation - - Inhaled Oxygen Concentration - - Weight 65.6 kg (144 lb 9.6 oz) 11/11/2024 10:41 AM EDT Height 155.6 cm (5' 1.25") 11/11/2024 10:41 AM E DT Body Mass Index 27.1 11/11/2024 10:41 AM EDT documented in this encounter H&P Notes * Candelario Blair MD - 11/11/2024 10:58 AM EDT Jerica Mathis is a 44 year old, , Pre-menopausal female, presenting with Pelvic Organ Prolapse: Onset/Duration: Over 1 year Associated signs and symptoms: Mass protruding from vagina on coughing or sneezing. Aggravating factors: Coughing sneezing or straining. Alleviating factors: Decreased activity Prior treatment: Total abdominal hysterectomy with suspension of vaginal cuff for uterine prolapse PAST MEDICAL HISTORY: Past Medical History: Diagnosis Date Allergic rhinitis Depressive disorder, not elsewhere classified Moderate episode of recurrent major depressive disorder (HCC) 02/13/2021 Other acne PCOS (polycystic ovarian syndrome) 10/23/2016 PAST SURGICAL HISTORY: Past Surgical History: Procedure Laterality Date BREAST AUGMENTATION EDU 2005 both breasts ENLARGEMENT OF BREAST W/O IMPLANT Bilateral 2004 [place] TOTAL ABDOM HYSTERECTOMY prolapse-02/21 FAMILY HISTORY: Family History Problem Relation Name Age of Onset Genitourinary Disorder Mother Breanna Merrill dysmennorhea Heart Disorder Mother Breanna Merrill irregular heart beat Heart Disorder Father Porter Merrill slow beat irregular heart beat Genitourinary Disorder Sister Khushboo Merrill endometreosis infertility Breast Cancer Cousin (Maternal) 50 SOCIAL HISTORY: Social History Tobacco Use Smoking status: Never Passive exposure: Past Smokeless tobacco: Never Vaping Use Vaping status: Never Used Substance Use Topics Alcohol use: Yes Comment: wine occasionally Drug use: No ALLERGIES: Patient has no known allergies. ROS: Constitutional: (-) fever chills sweats or weight loss Eyes: (-) negative, no amaurosis fugax, pain, blurred vision, or redness ENT: (-) negative: no headaches, vertigo, hearing loss, sinus, ear, or throat problems Cardiovascular: (-) negative: no chest pain, dyspnea, syncope, or palpitations Pulmonary : (-) negative: no cough, wheezing, or shortness of breath Abdominal/GI: (-) negative: no pain, heartburn, dysphagia, bleeding, change in bowel habits, nauseaor vomiting Genitourinary: (+) patient showed 2nd degree cystocele and 2nd degree rectocele. Patient had good suspension of the vaginal cuff. Psychiatry: (-) negative: no depression or anxiety PHYSICAL EXAMINATION: Most Recent Vital Signs: BP 100/62 | Temp 36.6 C (97.9 F) | Ht 1.556 m (5' 1.25") | Wt 65.6 kg (144 lb 9.6 oz) | LMP 07/24/2021 | BMI 27.10 kg/m | BSA 1.68 m Constitutional: no acute distress HEENT: Head normocephalic, sclera clear, and neck supple, no adenopathy Heart: Regular rate & rhythm and no murmurs Lungs: respirations even and unlabored and lungs clear to auscultation Abdomen: soft, non-tender, no rebound, and well-healed Pfannenstiel incision Internal Genitalia: Second-degree cystocele second-degree rectocele good suspension of vaginal cuff. Neuro: alert and to person, place and time with fluent speech and no focal motor/sensory deficits noted Pain Management Nurse [place] IMPRESSION: Jerica Mathis is a 44 year old with symptomatic cystocele and rectocele PLAN: Admission for anterior and posterior colporrhaphy along with suprapubic cystic catheterization. documented in this encounter Nursing Notes * Alethea Silvestre LPN - 11/11/2024 10:42 AM EDT Pt here today for pre op documented in this encounter Plan of Treatment Upcoming Encounters Date Type Department Care Team (Late st Contact Info) Description 01/27/2025 1:15 PM EDT Office Visit General Surgery, [facility] [address] [place] [phone] Sj Rai MD [address] [place] [address] 02/22/2025 8:40 AM EDT Office Visit General Internal Medicine [facility] [address] [place] [address] Raine Etienne MD [address] [place] [address] Scheduled Orders Name Type Priority Associated Diagnoses Orde r Schedule CBC Lab Routine Pre-op testing Ordered: 11/11/2024 Health Maintenance Due Date Last Done Comments [...] Cancer Screening Discontinued Pap Smear Discontinued 01/26/2019, 0409/2012, 11/22/2012, Additional history exists Influenza Vaccine (FLU [...] as of this encounter Visit Diagnoses Diagnosis Pre-op testing- Primary Preoperative examination, unspecified documented in this encounter Care Teams Insurance Case Manager Relationship Specialty Start Date End Date Erika Rebolledo MD [address] [place] [address] PCP - General Internal Medicine 03/13/24 documented as of this encounter
--- OUTSIDE RECORDS SUMMARY | 2024-11-19 13:35 | External Medical Summary | Summary of Care ---
Author Name Unknown Organization [facility] Address [address] [place] [address] Phone [phone] Care Team Providers Care Lock Fitter Name Role Phone Erika Rebolledo MD Primary Care Provider Reason for Visit * Reason Onset Date Comments Advice 06/22/2024 Encounter Details Date Type Department Care Team (Late st Contact Info) Description 06/22/2024 Telephone General Internal Medicine [facility] [address] [place] [address] Erika Rebolledo MD [address] [place] [address] Advice Allergies No known active allergiesdocumented as of this encounter (statuses as of 09/21/2024) Medications Sertraline HCl 25 MG Oral Tablet (Zoloft)Indicat ions:Moderate episode of recurrent major depressive disorder (HCC) Take 1 Tablet by mouth in the morning. Chg timing 02/20/2024. 90 Tablet 3 4 08/26/20 24 Discontinu ed(Medicat ion List Clean Up) documented as of this encounter (statuses as of 09/21/2024) Active Problems Problem Noted Date Diagnosed Date Viral infection 09/02/2015 Nonallergic rhinitis 09/02/2015 Rosacea 02/09/2014 Allergic rhinitis Other acne documented as of this encounter (statuses as of 09/21/2024) Resolved Problems Problem Noted Date Diagnosed Date [...] as of this encounter (statuses as of 09/21/2024) Immunizations Name Administration Dates Next Due COVID-19 mRNA, LNP-s, No Pre serve, 2-Dose Series (Parallels) 07/24/2021,12/28/2020,12/05/2020 DTWP - Dipth/Tet/Whole Cell Pertussis 04/15/1999 PPD 03/13/2022 Seasonal Influenza, PF, 6 M & above, IM , (FluLaval or Fluzone) 06/07/2023,06/08/2022,06/11/2021,2019,06/08/2019,06/06/2018,06/14/2017 TD - Tetanus/Diptheria (ADULT) 04/01/1999 TD, Preservative [...] Start Date 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 Please advise. documented in this encounter Plan of Treatment Upcoming Encounters Date Type Department Care Team (Late st Contact Info) Description 02/22/2025 8:40 AM EDT Office Visit General Internal Medicine [facility] [address] [place] [address] [facility] [place] [address] Raine Etienne MD [address] [facility] [place] [address] Health Maintenance Due Date Last Done Comments [...] filedocumented as of this encounter Care Teams Lock Fitter Relationship Specialty Start Date End Date Erika Rebolledo MD 200 [place] [address] PCP - General Internal Medicine 03/13/24 documented as of this encounter
--- OUTSIDE RECORDS SUMMARY | 2024-11-19 13:35 | External Medical Summary | Summary of Care ---
Author Name Unknown Organization [facility] Address [address] [place] [address] Phone [phone] Care Team Providers Care Commodity Buyer Name Role Phone Erika Rebolledo MD Primary Care Provider [phone] Reason for Visit * Reason Comments Outpatient Testing Encounter Details Date Type Department Care Team (Late st Contact Info) Description 11/12/2024 3:30 PM EDT Laboratory Laboratory [address] [place] [phone] [facility] [address] [place] [address] Arrived Allergies No known active allergiesdocumented as of this encounter (statuses as of 11/12/2024) Medications Eysuvis 0.25 % Ophthalmic Suspension (Loteprednol Etabonate) Instill into eye. Active QC Womens Daily Multivitamin Oral Tablet Take by mouth. Activ e Fluticasone Propionate 50 MCG/ACT Nasal Suspension (Flonase) Administer 2 Sprays into each nostril in the morning. 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 Not on file depression Not on file Not on file Not on file documented as of this encounter Plan of Treatment Upcoming Encounters Date Type Department Care Team (Late st Contact Info) Description 01/27/2025 1:15 PM EDT Office Visit General Surgery, [facility] [address] [phone] Sj Rai MD [address] [place] [address] 02/22/2025 8:40 AM EDT Office Visit General Internal Medicine [facility] [address] [facility] [place] [address] Raine Etienne MD [address] [facility] [place] [address] Health Maintenance Due Date Last Done Comments [...] Cancer Screening Discontinued Pap Smear Discontinued 01/26/2019, 04/09/2012, 11/22/2012, Additional history exists Influenza Vaccine (FLU [...] filedocumented as of this encounter Care Teams Commodity Buyer Relationship Specialty Start Date End Date Erika Rebolledo MD [address] [place] [address] PCP - General Internal Medicine 03/13/24 documented as of this encounter
--- OUTSIDE RECORDS SUMMARY | 2024-11-19 13:35 | External Medical Summary | Summary of Care ---
Author Name Unknown Organization [facility] Address [address] [place] [address] Phone [phone] Care Team Providers Care Compo Conveyor Operator Name Role Phone Erika Rebolledo MD Primary Care Provider [phone] Reason for Visit * Reason Onset Date Comments Surgery 09/02/2024 Encounter Details Date Type Department Care Team (Late st Contact Info) Description 09/02/2024 Telephone General Surgery, [facility] [address] [place] [address] Services, Scheduling [address] [place] [address] Surgery Allergies No known active allergiesdocumented as of this encounter (statuses as of 09/21/2024) Medications Eysuvis 0.25 % Ophthalmic Suspension (Loteprednol Etabonate) Instill into eye. Active QC Womens Daily Multivitamin Oral Tablet Take by mouth. Active documented as of this encounter (statuses [...] No 07/18/2024 Does the household have a [facility] source of income? 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 * Telephone Encounter - Malia Vidales OSA - 09/20/2024 8:[address] Blair decided to do his case separately. Sh was last in 08/26 for a lap trevon consult. We are checking to see what surgery she wants done first. I will bring her back in once I get that information. * Telephone Encounter - Belinda Beatty, [place] - 09/08/2024 10:29 AM EST I spoke to pt. Advised I will check with Dr Blair on days Dr Rai will be in the OR at [facility]. Ptaware I will be in contact with her once I speak with him. * Telephone Encounter - Anjali Godinez OSA - 09/06/2024 2:09 PM EST Pt calling back for any update on dates for her surgery with Dr. Blair. Pt is asking she haven't hear anything to schedule her for surgery. Please assist. Thank you * Telephone Encounter - Malia Vidales OSA - 09/02/2024 11:09 AM EST Spoke with patient. We will reach out to her once we have a date that works with both Dr Blair and Dr Rai. * Telephone Encounter - Andria Galdamez OSA - 09/02/2024 10:26 AM EST Pt of Dr. Rai, at last appt it was discussed that maybe the pt could have both her gynecology surgery and gallbladder surgery on the same day. Pt has been unable to get a hold of Dr. Blair to schedule surgery and is wondering if Dr. Rai could talk to him to try to arrange the date? Pleasecontact pt documented in this encounter Plan of Treatment Upcoming Encounters Date Type Department Care Team (Late st Contact Info) Description 01/27/2025 8:30 AM EDT Office Visit General Surgery, [facility] [address] [place] [address] Sj Rai MD [address] [place] [address] 02/22/2025 8:40 AM EDT Office Visit General Internal Medicine [facility] [address] [facility] [place] [address] Raine Etienne MD [address] [facility] [place] [address] Health Maintenance Due Date Last Done Comments [...] filedocumented as of this encounter Care Teams Compo Conveyor Operator Relationship Specialty Start Date End Date Erika Rebolledo MD [address] [facility] [place] [address] PCP - General Internal Medicine 03/13/24 documented as of this encounter
--- OUTSIDE RECORDS SUMMARY | 2024-11-19 13:35 | External Medical Summary | Summary of Care ---
Author Name Unknown Organization [facility] Address [address] [place] [address] Phone [phone] Care Team Providers Care Cover Stripper Name Role Phone Erika Rebolledo MD Primary Care Provider [phone] Reason for Visit * Reason Onset Date Comments Surgery 09/23/2024 Encounter Details Date Type Department Care Team (Late st Contact Info) Description 09/23/2024 Telephone General Surgery, [facility] [address] [place] [address] Services, Scheduling [address] [place] [address] Surgery Allergies No known active allergiesdocumented as of this encounter (statuses as of 09/27/2024) Medications Eysuvis 0.25 % Ophthalmic Suspension (Loteprednol Etabonate) Instill into eye. Active QC Womens Daily Multivitamin Oral Tablet Take by mouth. Activ e Fluticasone Propionate 50 MCG/ACT Nasal Suspension (Flonase) Administer 2 Sprays into each nostril in the morning. 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 She states that if she can't have the , which was one of the dates that was offered to her recently, she does not think it makes sense to come in on 10/07. She says otherwise she is not able to have surgery in Oct. Please advise or call pt. * Telephone Encounter - Malia Vidales, ELIANA - 09/23/2024 1:20 PM EST Scheduled to come in on 10/07/24. * Telephone Encounter - Landon Norwood - No Ob/Or, [place] - 09/23/2024 8:34 AM EST Jerica avila would like to schedule her surgery Please call her back Thank you landon documented in this encounter Plan of Treatment Upcoming Encounters Date Type Department Care Team (Late st Contact Info) Description 10/07/2024 9:45 AM EST Office Visit General Surgery, [facility] [address] [place] [address] Sj Rai MD [address] [place] [address] 02/22/2025 8:40 AM EDT Office Visit General Internal Medicine [address] [place] [address] [place] [address] Raine Etienne MD [address] [facility] [place] [address] Health Maintenance Due Date Last Done Comments HIV Screening 1995 Hepatitis C Screening 1998 Hepatitis B Vaccine (1 of 3 - 19+ 3-dose series) 1999 COVID-19 Vaccine (4 - 2023- season) 2024 07/24/2021, 12/28/2020, 12/05/2020 [...] filedocumented as of this encounter Care Teams Cover Stripper Relationship Specialty Start Date End Date Erika Rebolledo MD 200 [facility] [place] [address] PCP - General Internal Medicine 03/13/24 documented as of this encounter
--- OUTSIDE RECORDS SUMMARY | 2024-11-19 13:35 | External Medical Summary ---
Author Name Unknown Address Unknown Organization K01[place] [address] [place] [address] Laboratory Report Ordering Provider Test Date Status GENO GAMBOA 11/12/2024 15:37:03 Final Observation Date Value Abnormality Reference (Units ) Status WBC, Total 11/12/2024 15:37:03 8.82 4.00-10.80 (K/uL) Final RBC 11/12/2024 15:37:03 4.57 3.85-5.15 (M/uL) Final Hemoglobin 11/12/2024 15:37:03 13.7 12.0-15.3 (g/dL) Final HCT 11/12/2024 15:37:03 42.1 36.0-45.2 (%) Final MCV 11/12/2024 15:37:03 92.1 81.5-97.5 (fL) Final MCH 11/12/2024 15:37:03 30.0 27.0-34.0 (pg) Final MCHC 11/12/2024 15:37:03 32.5 32.0-36.0 (g/dL) Final RDW 11/12/2024 15:37:03 13.2 11.5-15.5 (%) Final Platelets 11/12/2024 15:37:03 261 140-400 (K/uL) Final MPV 11/12/2024 15:37:03 12.2 6.6-11.1 (fL) Final Nucleated erythrocytes/100 leukocytes [Ratio] in Blood by Automated count 11/12/2024 15:37:03 0 <=0 (/100 WBCs) Final Performing Location [facility] [address] [facility] [place] [address]
--- OUTSIDE RECORDS SUMMARY | 2024-11-19 13:35 | External Medical Summary | Summary of Care ---
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 No [...] 1:15 PM EDT Office Visit General Surgery, [facility] [address] [place] [phone] Sj Rai MD [address] [place] [address] 02/22/2025 8:40 AM EDT Office Visit General Internal Medicine [facility] [address] [place] [address] Raine Etienne MD 200 [facility] [place] [address] Pending Results Name Type Priority Associated Diagnoses [...] Primary documented in this encounter Care Teams Pipe Fitter [employer] Relationship Specialty Start Date End Date Erika Rebolledo MD [address] [place] [address] [place] [address] PCP - General Internal Medicine 03/13/24 documented as of this encounter
--- OUTSIDE RECORDS SUMMARY | 2024-11-19 13:35 | External Medical Summary | Summary of Care ---
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 on 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 Not on file depression Not on file Not on file Not on file documented as of this encounter Miscellaneous Notes * Telephone Encounter - Malia Vidales OSA - 09/23/2024 1:20 PM EST Scheduled to [...] 9:45 AM EST Office Visit General Surgery, [facility] [address] [place] [address] Sj Rai MD [address] [place] [address] 02/22/2025 8:40 AM EDT Office Visit General Internal Medicine [facility] [address] [facility] [place] [address] Raine Etienne MD 200 [facility] [place] [address] Health Maintenance Due Date Last Done Comments [...] filedocumented as of this encounter Care Teams Extension Worker Relationship Specialty Start Date End Date Erika Rebolledo MD [address] [place] [address] PCP - General Internal Medicine 03/13/24 documented as of this encounter
--- OUTSIDE RECORDS SUMMARY | 2024-11-19 13:35 | External Medical Summary | Summary of Care ---
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
--- OUTSIDE RECORDS SUMMARY | 2024-11-19 13:35 | External Medical Summary | Summary of Care ---
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 * Telephone Encounter - Zari Anderson OSA [...] call pt. * Telephone Encounter - Malia Vidales OSA - 09/23/2024 1:20 PM EST Scheduled to come in on 10/07/24. * Telephone Encounter - Landon Norwood - Sammie Ob/Or, ELIANA - 09/23/2024 8:34 AM EST Jerica avila would like to schedule her surgery Please call her back Thank you landon documented in this encounter Plan of Treatment Upcoming Encounters Date Type Department Care Team (Late st Contact Info) Description 01/27/2025 1:15 PM EDT Office Visit General Surgery, [facility] [address] [place] [address] Sj Rai MD [address] [place] [address] 02/22/2025 8:40 AM EDT Office Visit General Internal Medicine Miguel Di[place] [address] [facility] [place] [address] Raine Etienne MD [address] [facility] [place] [address] Health Maintenance Due Date Last Done Comments [...] filedocumented as of this encounter Care Teams Delivery Rep Relationship Specialty Start Date End Date Erika Rebolledo MD 200 [place] [address] PCP - General Internal Medicine 03/13/24 documented as of this encounter
--- OUTSIDE RECORDS SUMMARY | 2024-11-19 13:35 | External Medical Summary | Summary of Care ---
Author Name Unknown Organization [facility] Address [address] [facility] [address] Phone [phone] Care Team Providers Care Equipment Sterilizer Name Role Phone Erika Rebolledo MD Primary Care Provider [phone] Reason for Visit * Reason Onset Date Comments Pre Cert/Prior Auth 11/09/2024 Encounter Details Date Type Department Care Team (Late st Contact Info) Description 11/09/2024 Telephone Gynecology/Obstetrics [facility] [address] [place] [address] Candelario Blair MD [address] [place] [address] Pre Cert/Prior Auth Allergies No known active allergiesdocumented as of this encounter (statuses as of 11/09/2024) Medications Eysuvis 0.25 % Ophthalmic Suspension (Loteprednol Etabonate) Instill into eye. Active QC Womens Daily Multivitamin Oral Tablet Take by mouth. Activ e Fluticasone Propionate 50 MCG/ACT Nasal Suspension (Flonase) Administer 2 Sprays into each nostril in the morning. 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 Call ref # [id number]. I reached out to her secondary insurance ([employer]) I spoke with Sammie Kim auth required for cpt codes 11712, 70554 and 35318. Call ref# [id number] documented in this encounter Plan of Treatment Upcoming Encounters Date Type Department Care Team (Late st Contact Info) Description 11/11/2024 10:30 AM EDT Office Visit Gynecology/Obstetrics [facility] [address] [address] Candelario Blair MD [address] [place] [phone] 01/27/2025 1:15 PM EDT Office Visit General Surgery, [facility] [address] [place] [address] Sj Rai MD [address] [place] [address] 02/22/2025 8:40 AM EDT Office Visit General Internal Medicine Miguel Di[place] [address] [place] [address] Raine Etienne MD [address] [place] [address] Health Maintenance Due Date Last Done Comments [...] filedocumented as of this encounter Care Teams Equipment Sterilizer Relationship Specialty Start Date End Date Erika Rebolledo MD [address] [place] [address] PCP - General Internal Medicine 03/13/24 documented as of this encounter
--- OUTSIDE RECORDS SUMMARY | 2024-11-19 13:36 | External Medical Summary | Summary of Care ---
Author Name Unknown Organization [facility] Address [address] [place] [address] Phone [phone] Care Team Providers Care Claims Coordinator Name Role Phone Erika Rebolledo MD Primary Care Provider [phone] Reason for Visit * Reason Onset Date Comments Surgery 09/02/2024 Encounter Details Date Type Department Care Team (Late st Contact Info) Description 09/02/2024 Telephone General Surgery, [facility] [address] [place] [address] Services, Scheduling [address] [place] [address] Surgery Allergies No known active allergiesdocumented as [...] No 07/18/2024 Does the household have a [facility] source of income? (Household - for [...] that information. * Telephone Encounter - Belinda Beatty OSA - 09/08/2024 10:29 AM EST I spoke to pt. Advised I will check with Dr Blair on days Dr Rai will be in the OR at [facility]. Ptaware I will be in contact with [...] 8:30 AM EDT Office Visit General Surgery, [facility] [address] [address] Sj Rai MD [address] [place] [address] 02/22/2025 8:40 AM EDT Office Visit General Internal Medicine [facility] [place] [address] [facility] [place] [address] Raine Etienne MD 200 [facility] [place] [address] Health Maintenance Due Date Last Done Comments [...] filedocumented as of this encounter Care Teams Claims Coordinator Relationship Specialty Start Date End Date Erika Rebolledo MD [address] [facility] [place] [address] PCP - General Internal Medicine 03/13/24 documented as of this encounter
--- OUTSIDE RECORDS SUMMARY | 2024-11-19 13:36 | External Medical Summary | Summary of Care ---
Author Name Unknown Organization [facility] Address [address] [place] [address] Phone [phone] Care Team Providers Care Lure Maker Name Role Phone Erika Rebolledo MD Primary Care Provider [phone] Reason for Visit * Reason Comments NEW PATIENT RUQ pain and US- gal lstones * Evaluate & Treat - Unlimited Visits (Within 30 days (routine)) - Pending Review Specialty Diagnoses / Procedures Referred By Michelle ghotra Referred To Contact General Surgery Diagnoses Gall stones Sylvia Pugh MD [address] [place] [address] [place] [address] Phone: tel: fax: Referral ID Status Reason Start Date Expiration Date Visits Requested Visits Authorized [id number] Pending Review Specialty Services Required 08/02/[phone] Encounter Details Date Type Department Care Team (Late st Contact Info) Description 08/26/2024 2:30 PM EST Office Visit General Surgery, [facility] [address] [address] Sj Rai MD [address] [address] Symptomatic cholelithiasis* Allergies No known active allergiesdocumented as of this encounter (statuses as of 08/26/2024) Medications Eysuvis 0.25 % Ophthalmic Suspension (Loteprednol Etabonate) Instill into eye. Active QC Womens Daily Multivitamin Oral Tablet Take by mouth. Active documented as of this encounter (statuses as of 08/26/2024) Active Problems Problem Noted Date Diagnosed Date Moderate episode of recurrent major depressive d isorder 02/13/2021 Viral infection 09/02/2015 Nonallergic rhinitis 09/02/2015 Rosacea 02/09/2014 Major depressive disorder Overview (06/24/2017): ICD-10 update of inactive term Allergic rhinitis Other acne documented as of this encounter (statuses as of 08/26/2024) Resolved Problems Problem Noted Date Diagnosed Date Resolved Date PCOS (polycystic ovarian syndrome) 10/23/2016 02/20/2024 Major depressive disorder Overview (06/24/2017): Resolved per Duplicate Protocol #2. ICD-10 update of inactive term Allergic rhinitis 09/29/2008 Overview (09/29/2008): Resolved per Duplicate Protocol #2. 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 Pain has been present for weeks. The pain did radiate to the patient's back. The patient did not have nausea associated with it. The patient does not have any jaundice associated with it. The pain was made worse by fatty or fried foods. Characteristics of the pain are as follows: Location: RUQ with radiation to back Quality: sharp and stabbing Chronicity: Onset week(s) ago, completely resolved since Aggravating factors: eating, spicy foods, and fatty foods Alleviating factors: none Associated symptoms: anorexia Past Medical History Past Medical History: Diagnosis Date Allergic rhinitis Depressive disorder, not elsewhere classified Other acne PCOS (polycystic ovarian syndrome) 10/23/2016 Past Surgical History Past Surgical History: Procedure Laterality Date BREAST AUGMENTATION EDU 2004 both breasts ENLARGEMENT OF BREAST W/O IMPLANT Bilateral 2005 ND TOTAL ABDOM HYSTERECTOMY prolapse-02/21 Medications: Current Outpatient Medications Medication Sig Dispense Refill Eysuvis 0.25 % Ophthalmic Suspension (Loteprednol Etabonate) Instill into eye. QC Womens Daily Multivitamin Oral Tablet Take by mouth. No current facility-administered medications for this visit. Allergies: Allergies as of 08/26/2024 (No Known Allergies) Family History Family History Problem Relation Name Age of Onset Genitourinary Disorder Mother Breanna Merrill dysmennorhea Heart Disorder Mother Breanna Merrill irregular heart beat Heart Disorder Father Porter Merrill slow beat irregular heart beat Genitourinary Disorder Sister Khushboo Merrill endometreosis infertility Breast Cancer Cousin (Maternal) 50 Social History Social History Socioeconomic History Marital status: Spouse name: Not on file Number of children: Not on file Years of education: Not on file Highest education level: Not on file Occupational History 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 (Adult - for ages 18 years and over): No Does your family have trouble paying for medicine? (Household - for ages 0-17 years): Not on file Food Insecurity: No Food Insecurity (07/18/2024) Food Insecurity Do you need food for this week? (Adult - for ages 18 years and over): No Are you able to get enough food for your family? (Household - for ages 0-17 years): Not on file Does your family need food this week? (Household - for ages 0-17 years): Not on file Do you always have enough food for your family? (Household - for ages 0-17 years): Not on file Transportation Needs: No Transportation Needs (07/18/2024) Transportation Needs Do you have trouble getting a ride to medical visits or work? (Adult - for ages 18 years and over):Not on file Does your family have a hard time getting a ride to doctors visits? (Household - for ages 0-17 years): Not on file Has lack of transportation kept you from medical appointments, meetings, work, or from getting things needed for daily living? Check all that apply. (Adult - for ages 18 years and over): No Do you (or your family) have trouble finding or paying for a ride (transportation)? (Household - for ages 0-17 years): Not on file Social Connections: Socially Integrated (07/18/2024) Social Connections How often do you feel lonely or isolated from those around you? (Adult - for ages 18 years and over): Never Housing Stability: Low Risk (07/18/2024) Housing Stability Do you currently live in a senior care or have no steady place to sleep at night? (Adult - for ages 18 years and over): No Do you think you are at risk of becoming homeless? (Adult - for ages 18 years and over): Not on file Does your family worry about paying for your home or becoming homeless? (Household - for ages 0-17 years): Not on file Are you homeless or worried that you might be in the future? (Adult - for ages 18 years and over): No Are you (or your family) homeless or worried that you might be in the future? (Household - for ages0-17 years): Not on file ROS: GEN: no weight loss, fever, fatigue HEENT: no changes in vision or hearing, no sinus problems, no sore throat, no hoarseness RESPIRATORY: no cough, wheezing, SOB or change in breathing CARDIOVASCULAR: no exertional chest pain, dyspnea, palpitations GI: see HPI , otherwise negative : no dysuria, hematuria, frequency MUSCULOSKELETAL: no change in joint pains, no new arthritis PSYCHIATRIC: no significant anxiety or depression, unchanged sleep pattern HEME: no bleeding tendency, no clotting tendency NEURO: no significant headache, no seizures , no tremors SKIN: no new rashes, no itching Physical Exam: Last menstrual period 07/24/2021, not currently . Constitutional: alert, healthy, well nourished Head: normocephalic, atraumatic Eyes: conjunctiva non-injected, sclera white Ears: pinna normal shape and color Nose: no purulent discharge Mouth: lips, mucosa, and tongue normal Neck: supple Lungs: clear to auscultation, breath sounds are equal and symmetric Heart: regular rate & rhythm and no murmur, gallops or rubs Abdomen: soft, non-tender, normal bowel sounds, no abnormal masses, no hernias Back: normal curvature, normal ROM Extremities: no joint deformities, effusion, or inflammation, no edema, no skin discoloration Neuro: alert, gait normal, motor normal Skin: no obvious rashes or significant lesions Imaging: EXAM US ABDOMEN LIMITED-07/30/2024 9:55 am HISTORY RUQ pain r/o gallstones TECHNIQUE Sonogram of the right upper quadrant. COMPARISON None. FINDINGS LIVER: Normal echogenicity. 0.7 cm cyst adjacent to the gallbladder. BILE DUCTS: No intrahepatic or extrahepatic duct dilatation. The common bile duct measures 4 mm. GALLBLADDER: Cholelithiasis. Tiny cholesterol polyp. No gallbladder wall thickening, pericholecystic fluid, or sonographic Jackson's sign. PANCREAS: Visualized portions are unremarkable. RIGHT KIDNEY: 10.7 cm in length. No hydronephrosis, shadowing calculi, or focal lesion. OTHER: No ascites. IMPRESSION IMPRESSION Cholelithiasis. I have reviewed the radiologic study and my intrepretation is a large gallstone Impression: Jerica Mathis is a 44 year old female with symptomatic cholelithiasis. I feel that the patient is a good candidate for laparascopic cholecystectomy. Treatment Plan: Laparascopic cholecystectomy without intraoperative cholangiogram. Risks discussed with the patient, including but not limited to: bleeding, infection, conversion to open, injury to the common bile duct, bile leak, retained common bile duct stone requiring ERCP, postoperative diarrhea and intolerance to foods postoperatively. Expected same day nature of surgery and recovery periodreviewed. All of the patient's questions have been answered. Will schedule in near future; may attempt to combine lap trevon with TRACK ANNOUNCER procedure. Attending: Sj Rai MD 08/26/2024 2:28 PM documented in this encounter Nursing Notes * Aminata Kim LPN - 08/26/2024 2:25 PM EST Patient identified by name and date of . Chief Complaint Patient presents with NEW PATIENT RUQ pain and US- gallstones Pt stating that she saw a provider, they told her after the US showed gallstones, to change her diet, she has and has not had any issues since. Pt wondering if she truly needs to have surgery. documented in this encounter Plan of Treatment Upcoming Encounters Date Type Department Care Team (Late st Contact Info) Description 08/30/2024 4:30 PM EST Imaging Radiology [address] [place] [address] 01/27/2025 8:30 AM EDT Office Visit General Surgery, [facility] [address] [place] [address] Sj Rai MD [address] [place] [address] 02/22/2025 8:40 AM EDT Office Visit General Internal Medicine [facility] 200 [facility] [place], [place] [address] Raine Etienne MD 200 [facility] [place] [address] Scheduled Referrals Name Type Priority Associated Diagnoses Orde r Schedule SURGERY REFERRAL OP Referral Within 30 da ys (routine) Gall stones Ordered: 08/02/2024 Health Maintenance Due Date Last Done Comments HIV Screening 1995 Hepatitis C Screening 1998 Hepatitis B Vaccine (1 of 3 - 19+ 3-dose series) 1999 COVID-19 Vaccine ( season) 2024 07/24/2021, 12/28/2020, 12/05/2020 Mammogram 08/29/2024 08/29/2023, 09/01, 08/28/2022, Additional history exists Depression Monitoring 02/19/2025 02/20/2024 Diabetes Screening 07/28/2027 07/28/2024, 1 09/12/2023, 02/20/2024, [...] as of this encounter Visit Diagnoses Diagnosis Symptomatic cholelithiasis- Primary Calculus of gallbladder without mention of cholecystitis or obstruction Screening mammogram for breast cancer documented in this encounter Care Teams Lure Maker Relationship Specialty Start Date End Date Erika Rebolledo MD [address] [facility] [place] [address] PCP - General Internal Medicine 03/13/24 documented as of this encounter
--- OUTSIDE RECORDS SUMMARY | 2024-11-19 13:36 | External Medical Summary | Summary of Care ---
Author Name Unknown Organization [facility] Address [address] [place] [address] Phone [phone] Care Team Providers Care Chemical Milling Processor Name Role Phone Erika Rebolledo MD Primary Care Provider [phone] Reason for Visit * Reason Onset Date Comments Advice 08/30/2024 Surgery 08/30/2024 Pt requesting ma rgery date Encounter Details Date Type Department Care Team (Late st Contact Info) Description 08/30/2024 Telephone Gynecology/Obstetrics [facility] [address] [place] [address] Services, Scheduling [address] [place] [address] Advice; Surgery (Pt requesting surgery date) Allergies No known active allergiesdocumented as of this encounter (statuses as of 08/30/2024) Medications Eysuvis 0.25 % Ophthalmic Suspension (Loteprednol Etabonate) Instill into eye. Active QC Womens Daily Multivitamin Oral Tablet Take by mouth. Active documented as of this encounter (statuses as of 08/30/2024) Active Problems Problem Noted Date Diagnosed Date Moderate episode of recurrent major depressive d isorder 02/13/2021 Viral infection 09/02/2015 Nonallergic rhinitis 09/02/2015 Rosacea 02/09/2014 Major depressive disorder Overview (06/24/2017): ICD-10 update of inactive term Allergic rhinitis Other acne documented as of this encounter (statuses as of 08/30/2024) Resolved Problems Problem Noted Date Diagnosed Date Resolved Date PCOS (polycystic ovarian syndrome) 10/23/2016 02/20/2024 Major depressive disorder Overview (06/24/2017): Resolved per Duplicate Protocol #2. ICD-10 update of inactive term Allergic rhinitis 09/29/2008 Overview (09/29/2008): Resolved per Duplicate Protocol #2. 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 Blair at [facility]. She is asking for call back with available dates. She is also asking for her gallbladder surgery to [facility] same day. See messages below. * Telephone Encounter - Nereyda Worthy OSA - 08/30/2024 4:40 PM EST Patient calling in , a little upset as she states she was told someone would call her today regarding her surgery appt. She says she needs to start making arrangements at work, Please call patient Thank you * Telephone Encounter - Cherelle Espinal OSA - 08/30/2024 11:32 AM EST Pt calling about her Surgery coming up with [facility]. She is also going to be having Gall bladder surgery With General Surg Dr. Sj Cisse.(At [facility]) Per Was wanting to know if Dr Blair could give him 1/2 hr after surgery to take out Pt Gall Bladder. Pt asking for a call with Dr varela, so she can let know. Please assist Jerica [phone] documented in this encounter Plan of Treatment Upcoming Encounters Date Type Department Care Team (Late st Contact Info) Description 01/27/2025 8:30 AM EDT Office Visit General Surgery, [facility] [address] [address] Sj Rai MD [address] [place] [address] 02/22/2025 8:40 AM EDT Office Visit General Internal Medicine [facility] 200 [facility] [place] [address] Raine Etienne MD 200 [facility] [place] [address] Health Maintenance Due Date Last Done Comments HIV Screening 1995 Hepatitis C Screening 1998 Hepatitis B Vaccine (1 of 3 - 19+ 3-dose series) 1999 COVID-19 Vaccine (2023- season) 2024 07/24/2021, 12/28/2020, 12/05/2020 Mammogram 08/29/2024 [...] filedocumented as of this encounter Care Teams Chemical Milling Processor Relationship Specialty Start Date End Date Erika Rebolledo MD [address] [place] [address] PCP - General Internal Medicine 03/13/24 documented as of this encounter
--- OUTSIDE RECORDS SUMMARY | 2024-11-19 13:36 | External Medical Summary | Summary of Care ---
Author Name Unknown Organization [facility] Address [address] [place] [address] Phone [phone] Care Team Providers Care Department Administrator Name Role Phone Erika Rebolledo MD Primary Care Provider [phone] Reason for Visit * Reason Onset Date Comments Advice 08/30/2024 Surgery 08/30/2024 Pt requesting ma rgery date Encounter Details Date Type Department Care Team (Late st Contact Info) Description 08/30/2024 Telephone Gynecology/Obstetrics [facility] [address] [place] [address] Services, Scheduling [address] [place] [address] Advice; Surgery (Pt requesting surgery date) Allergies No known active allergiesdocumented as of this encounter (statuses as of 09/08/2024) Medications Eysuvis 0.25 % Ophthalmic Suspension (Loteprednol Etabonate) Instill into eye. Active QC Womens Daily Multivitamin Oral Tablet Take by mouth. 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 * Telephone Encounter - Alethea Silvestre LPN - 08/30/2024 4:51 PM EST Pt asking for call back regarding getting her surgery scheduled with Dr. Blair at [facility]. She is asking for call back with available dates. She is also [facility] See messages below. * Telephone [...] surgery With General Surg Dr. Sj Cisse.(At [facility]) Per Was wanting to know if Dr Blair could give him 1/2 hr after surgery to take out Pt Gall Bladder. Pt asking for a call with Dr varela, so she can let know. Please assist Jerica -[phone] documented in this encounter Plan of Treatment Upcoming Encounters Date Type Department Care Team (Late st Contact Info) Description 01/27/2025 8:30 AM EDT Office Visit General Surgery, [facility] [address] [place] [address] Sj Rai MD 132 [facility] [place] [address] 02/22/2025 8:40 AM EDT Office Visit General Internal Medicine [place] [address] [place] [address] Raine Etienne MD 200 [facility] [place] [address] Health Maintenance Due Date Last Done Comments HIV Screening 1995 Hepatitis C Screening 1998 Hepatitis B Vaccine (1 of 3 - 19+ 3-dose series) 1999 COVID-19 Vaccine (2023- season) 2024 07/24/2021, 12/28/2020, 12/05/2020 Depression Screening [...] filedocumented as of this encounter Care Teams Department Administrator Relationship Specialty Start Date End Date Erika Rebolledo MD [address] [place] [address], [place] [address] PCP - General Internal Medicine 03/13/24 documented as of this encounter
--- OUTSIDE RECORDS SUMMARY | 2024-11-19 13:36 | External Medical Summary | Summary of Care ---
Author Name Unknown Organization [facility] Address [address] [place] [address] Phone [phone] Care Team Providers Care Prospect Manager Name Role Phone Erika Rebolledo MD Primary Care Provider [phone] Reason for Visit * Reason Onset Date Comments Surgery 09/02/2024 Encounter Details Date Type Department Care Team (Late st Contact Info) Description 09/02/2024 Telephone General Surgery, [facility] [address] [place] [address] Services, Scheduling [address] [place] [address] Surgery Allergies No known active allergiesdocumented as of this encounter (statuses as of 09/06/2024) Medications Eysuvis 0.25 % Ophthalmic Suspension (Loteprednol Etabonate) Instill into eye. Active QC Womens Daily Multivitamin Oral Tablet Take by mouth. Active documented as of this encounter (statuses as of 09/06/2024) Active Problems Problem Noted Date Diagnosed Date Moderate episode of recurrent major depressive d isorder 02/13/2021 Viral infection 09/02/2015 Nonallergic rhinitis 09/02/2015 Rosacea 02/09/2014 Major depressive disorder Overview (06/24/2017): ICD-10 update of inactive term Allergic rhinitis Other acne documented as of this encounter (statuses as of 09/06/2024) Resolved Problems Problem Noted Date Diagnosed Date Resolved Date PCOS (polycystic ovarian syndrome) 10/23/2016 02/20/2024 Major depressive disorder Overview (06/24/2017): Resolved per Duplicate Protocol #2. ICD-10 update of inactive term Allergic rhinitis 09/29/2008 Overview (09/29/2008): Resolved per Duplicate Protocol #2. documented as of this encounter (statuses as of 09/06/2024) Immunizations Name Administration Dates Next Due COVID-19 [...] No 07/18/2024 Does the household have a [facility] source [facility] income? 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 Not on file depression Not on file Not on file Not on file documented as of this encounter Miscellaneous Notes * Telephone Encounter - Anjali Godinez OSA [...] Care Team (Late st Contact Info) Description 09/07/2024 9:20 AM EST Office Visit Family Medicine [address] [place] [address] Maryan Urias MD [address] [place] [address] [place] [address] 01/27/2025 8:30 AM EDT Office Visit General Surgery, [facility] [address] [place] [address] Sj Rai MD [address] [place] [address] 02/22/2025 8:40 AM EDT Office Visit General Internal Medicine [place] [address] [place] [address] Raine Etienne MD [address] [facility] [place] [address] Health Maintenance Due Date Last Done Comments HIV Screening 1995 Hepatitis C Screening 1998 Hepatitis B Vaccine (1 of 3 - 19+ 3-dose series) 1999 COVID-19 Vaccine ( - 2023- season) 2024 07/24/2021, 12/28/2020, 12/05/2020 Depression Monitoring 02/19/2025 02/20/2024 Mammogram 08/30/2025 08/30/2024, 08/02, 09/18/2022, [...] filedocumented as of this encounter Care Teams Prospect Manager Relationship Specialty Start Date End Date Erika Rebolledo MD [address] [place] [address] PCP - General Internal Medicine 03/13/24 documented as of this encounter
--- OUTSIDE RECORDS SUMMARY | 2024-11-19 13:36 | External Medical Summary | Summary of Care ---
Author Name Unknown Organization [facility] Address [address] [place] [address] Phone [phone] Care Team Providers Care Docket Clerk Name Role Phone Erika Rebolledo MD Primary Care Provider [phone] Reason for Visit * Reason Comments Acute Encounter Details Date Type Department Care Team (Latest Contact Info) Description 09/07/2024 9:20 AM EST Office Visit Family Medicine [address] [address] Maryan Urias MD [address] [place] [address] [place] [address] Acute streptococcal pharyngitis*; Acute non-recurrent frontal sinusitis; Sinus headache Allergies No known active allergiesdocumented as of this encounter (statuses as of 09/07/2024) Medications Eysuvis 0.25 % Ophthalmic Suspension (Loteprednol Etabonate) Instill into eye. Active QC Womens Daily Multivitamin Oral Tablet Take by mouth. Activ e Fluticasone Propionate 50 MCG/ACT Nasal Suspension (Flonase) Administer 2 Sprays into each nostril in the morning. 18 mL 5 Active Amoxicillin 500 MG Oral Capsule (Amoxil) Take 1 Capsule by mouth in the morning and 1 Capsule before bedtime. Do all this for 10 days. 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 Not on file depression Not on file Not on file Not on file documented as of this encounter Last Filed Vital Signs Vital Sign Reading Time Taken Comments Blood Pressure 104/76 09/07/2024 9:09 AM EST Pulse 69 09/07/2024 9:09 AM EST Temperature 35.2 C (95.3 F) 09/07/2024 9:09 AM ES T Respiratory Rate - - Oxygen Saturation 98% 09/07/2024 9:09 AM EST Inhaled Oxygen Concentration - - Weight 64.7 kg (142 lb 9.6 oz) 09/07/2024 9:09 A M EST Height 154.9 cm (5' 1") 09/07/2024 9:09 AM EST Body Mass Index 26.94 09/07/2024 9:09 AM EST documented in this encounter Patient Instructions * Patient Instructions* Maryan Urias MD - 09/07/2024 9:30 AM EST Push fluids. Nasal saline, salt water gargles as needed for congestion and sore throat. Tylenol andibuprofen as needed for fever/discomfort. Can try honey for cough. Humidifier at night if able. Canuse OTC decongestants as needed. Flonase spray to help with sinus congestion as well. Handwashing! documented in this encounter Progress Notes * Maryan Urias MD - 09/07/2024 9:15 AM EST Images from the original note were not included. History of Present Illness Jerica Mathis is a 44 year old female that presents for Acute 1 week of illness, started 08/31- headache, body ache, chills/fever, sore throat. was sick too but improved. She continues to feel poorly. Body ache and chills have resolved. Sore throat is the most bothersome, still getting headaches each day. Hurts to swallow. Having some hoarseness as well. Pressure around her nose and cheekbones. Tried OTC sinus medication, tylenol, ibuprofen to little relief. Is eating and drinking ok. Physical Exam BP 104/76 | Pulse 69 | Temp 95.3 F (35.2 C) (Infrared ) | Ht 5' 1" (1.549 m) | Wt 142 lb 9.6 oz(64.7 kg) | LMP 07/24/2021 | SpO2 98% | BMI 26.94 kg/m | BSA 1.67 m Physical Exam Vitals and nursing note reviewed. Constitutional: Appearance: Normal appearance. HENT: Head: Normocephalic and atraumatic. Comments: Frontal and maxillary sinus tenderness Right Ear: Tympanic membrane normal. Left Ear: Tympanic membrane normal. Nose: Rhinorrhea present. Mouth/Throat: Mouth: Mucous membranes are moist. Pharynx: Posterior oropharyngeal erythema and postnasal drip present. Cardiovascular: Rate and Rhythm: Normal rate and regular rhythm. Pulmonary: Effort: Pulmonary effort is normal. Breath sounds: Normal breath sounds. Musculoskeletal: Cervical back: Normal range of motion and neck supple. Lymphadenopathy: Cervical: No cervical adenopathy. Neurological: Mental Status: She is alert and oriented to person, place, and time. Psychiatric: Mood and Affect: Mood normal. Behavior: Behavior normal. Assessment and Plan Acute pharyngitis, unspecified etiology; acute sinusitis; sinus headache Rapid strep +. Will treat with amoxicillin . Discussed using flonase to help with sinus symptoms. Supportive treatment as well. - STREP A SCREEN, POINT OF CARE (ENTER/EDIT) Push fluids. Nasal saline, salt water gargles as needed for congestion and sore throat. Tylenol andibuprofen as needed for fever/discomfort. Can try honey for cough. Humidifier at night if able. Canuse OTC decongestants as needed. Flonase spray to help with sinus congestion as well. Handwashing! Wrap-Up Follow Up: Return if symptoms worsen or fail to improve. Time: I spent a total of 20-29 minutes (exact time 22 mins) on the date of service in preparation, delivery, and documentation of the care provided to Jerica Mathis excluding any time spent in the performance of separately billed services. documented in this encounter Nursing Notes * Odalis Melara CMA - 09/07/2024 9:13 AM EST Pt reports was not feeling well new years mary, with MACIAS, sore throat. Next day work up with chill/fever, body aches, sore throat, headache, hoarse voice at times. Reports her spouse got as well he gotbetter, but she still feels sick fever/chills have gone but still gets a MACIAS every night, sore throat, sinus pressure, hoarse voice. documented in this encounter Plan of Treatment Upcoming Encounters Date Type Department Care Team (Late st Contact Info) Description 01/27/2025 8:30 AM EDT Office Visit General Surgery, [facility] 132 [facility] [place] [address] Sj Rai MD 132 [facility] [place] [address] 02/22/2025 8:40 AM EDT Office Visit General Internal Medicine [facility] 200 [facility] [place] [address] Raine Etienne MD 200 [facility] [place] [address] Pending Results Name Type Priority Associated Diagnoses Date /Time STREP A SCREEN, POINT OF CARE (ENTER/EDIT) Point of Care Testing Routine Acute streptococcal pharyngitis 09/07/2024 Health Maintenance Due Date Last Done Comments HIV Screening 1995 Hepatitis C Screening 1998 Hepatitis B Vaccine (1 of 3 - 19+ 3-dose series) 1999 COVID-19 Vaccine ( season) 2024 07/24/2021, 12/28/2020, 12/05/2020 Depression Monitoring [...] as of this encounter Visit Diagnoses Diagnosis Acute streptococcal pharyngitis- Primary Streptococcal sore throat Acute non-recurrent frontal sinusitis Sinus headache Headache documented in this encounter Care Teams Docket Clerk Relationship Specialty Start Date End Date Erika Rebolledo MD 200 [facility] [place] [address] PCP - General Internal Medicine 03/13/24 documented as of this encounter
--- OUTSIDE RECORDS SUMMARY | 2024-11-19 13:36 | External Medical Summary | Summary of Care ---
Author Name Unknown Organization [facility] Address [address] [place] [address] Phone [phone] Care Team Providers Care Crop Pest Control Specialist Name Role Phone Erika Rebolledo MD Primary Care Provider [phone] Reason for Visit * Reason Onset Date Comments Surgery 09/02/2024 Encounter Details Date Type Department Care Team (Late st Contact Info) Description 09/02/2024 Telephone General Surgery, [facility] [address] [place] [address] Services, Scheduling [address] [place] [address] Surgery Allergies No known active allergiesdocumented as of this encounter (statuses as of 09/02/2024) Medications Eysuvis 0.25 % Ophthalmic Suspension (Loteprednol Etabonate) Instill into eye. Active QC Womens Daily Multivitamin Oral Tablet Take by mouth. Active documented as of this encounter (statuses as of 09/02/2024) Active Problems Problem Noted Date Diagnosed Date Moderate episode of recurrent major depressive d isorder 02/13/2021 Viral infection 09/02/2015 Nonallergic rhinitis 09/02/2015 Rosacea 02/09/2014 Major depressive disorder Overview (06/24/2017): ICD-10 update of inactive term Allergic rhinitis Other acne documented as of this encounter (statuses as of 09/02/2024) Resolved Problems Problem Noted Date Diagnosed Date Resolved Date PCOS (polycystic ovarian syndrome) 10/23/2016 02/20/2024 Major depressive disorder Overview (06/24/2017): Resolved per Duplicate Protocol #2. ICD-10 update of inactive term Allergic rhinitis 09/29/2008 Overview (09/29/2008): Resolved per Duplicate Protocol #2. documented as of this encounter (statuses as of 09/02/2024) Immunizations Name Administration Dates Next Due COVID-19 [...] No 07/18/2024 Does the household have a [facility] source of income? 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 on file depression Not on file Not on file Not on file documented as of this encounter Miscellaneous Notes * Telephone Encounter - Andria Galdamez OSA [...] 8:30 AM EDT Office Visit General Surgery, [facility] [address] [place] [address] Sj Rai MD [address] [place] [address] 02/22/2025 8:40 AM EDT Office Visit General Internal Medicine [facility] 200 [facility] [place] [address] Raine Etienne MD 200 [facility] [place] [address] Health Maintenance Due Date Last Done Comments [...] filedocumented as of this encounter Care Teams Crop Pest Control Specialist Relationship Specialty Start Date End Date Erika Rebolledo MD 200 [facility] [place] [address] PCP - General Internal Medicine 03/13/24 documented as of this encounter
--- OUTSIDE RECORDS SUMMARY | 2024-11-19 13:36 | External Medical Summary | Summary of Care ---
Author Name Unknown Organization [facility] Address [address] [place] [address] Phone [phone] Care Team Providers Care Pet Caretaker Name Role Phone Erika Rebolledo MD Primary Care Provider [phone] Reason for Visit * Reason Onset Date Comments Surgery 09/02/2024 Encounter Details Date Type Department Care Team (Late st Contact Info) Description 09/02/2024 Telephone General Surgery, [facility] [address] [place] [address] Services, Scheduling [address] [place] [address] Surgery Allergies No known active allergiesdocumented as [...] No 07/18/2024 Does the household have a [facility] source [facility]? 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 [...] 9:20 AM EST Office Visit Family Medicine [address] [place] [address] Maryan Urias MD [address] [place] [address] [place] [address] 01/27/2025 8:30 AM EDT Office Visit General Surgery, [facility] [address] [place] [address] Sj Rai MD [address] [address] 02/22/2025 8:40 AM EDT Office Visit General Internal Medicine [place] [address] [place] [address] Raine Etienne MD [address] [facility] [place] [address] Health Maintenance Due Date Last Done Comments [...] filedocumented as of this encounter Care Teams Pet Caretaker Relationship Specialty Start Date End Date Erika Rebolledo MD [address] [place] [address] PCP - General Internal Medicine 03/13/24 documented as of this encounter
--- OUTSIDE RECORDS SUMMARY | 2024-11-19 13:36 | External Medical Summary | Summary of Care ---
Author Name Unknown Organization [facility] Address [address] [place] [address] Phone [phone] Care Team Providers Care Software Support Specialist Name Role Phone Erika Rebolledo MD Primary Care Provider [phone] Reason for Visit * Reason Onset Date Comments Advice 08/30/2024 Surgery 08/30/2024 Pt requesting ma rgery date Encounter Details Date Type Department Care Team (Late st Contact Info) Description 08/30/2024 Telephone Gynecology/Obstetrics [facility] [address] [place] [address] Services, Scheduling [address] [place] [address] Advice; Surgery (Pt requesting surgery date) Allergies [...] 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 Sj Cisse.(At [facility]) Per Was wanting to know if Dr Blair could give him 1/2 hr after surgery to take out Pt Gall Bladder. Pt asking for a call with Dr varela, so she can let know. Please assist Jerica -[phone] documented in this encounter Plan of Treatment Upcoming Encounters Date Type Department Care Team (Late st Contact Info) Description 01/27/2025 8:30 AM EDT Office Visit General [facility], [facility] [address] [place] [address] Sj Rai MD [address] [place] [address] 02/22/2025 8:40 AM EDT Office Visit General Internal Medicine [facility] [address] [place] [address] Raine Etienne MD [address] [facility] [place] [address] Health Maintenance Due Date Last Done Comments [...] filedocumented as of this encounter Care Teams Software Support Specialist Relationship Specialty Start Date End Date Erika Rebolledo MD [address] [place] [address] PCP - General Internal Medicine 03/13/24 documented as of this encounter
--- OUTSIDE RECORDS SUMMARY | 2024-11-19 13:36 | External Medical Summary | Summary of Care ---
Author Name Unknown Organization [facility] Address [address] [place] [address] Phone [phone] Care Team Providers Care Chip Crusher Operator Name Role Phone Erika Rebolledo MD Primary Care Provider [phone] Reason for Visit * Reason Onset Date Comments Surgery 09/02/2024 Encounter Details Date Type Department Care Team (Late st Contact Info) Description 09/02/2024 Telephone General Surgery, [facility] [address] [place] [address] Services, Scheduling [address] [place] [address] Surgery Allergies No known active allergiesdocumented as [...] No 07/18/2024 Does the household have a [facility] source [facility] income? 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 No t [...] 8:30 AM EDT Office Visit General Surgery, [facility] [address] [place] [address] Sj Rai MD [address] [place] [address] 02/22/2025 8:40 AM EDT Office Visit General Internal Medicine [facility] [address] [facility] [place] [address] Raine Etienne MD [address] [facility] [place] [address] Health Maintenance Due Date Last Done Comments [...] filedocumented as of this encounter Care Teams Chip Crusher Operator Relationship Specialty Start Date End Date Erika Rebolledo MD [address] [facility] [place] [address] PCP - General Internal Medicine 03/13/24 documented as of this encounter
--- OUTSIDE RECORDS SUMMARY | 2024-11-19 13:36 | External Medical Summary | Summary of Care ---
Author Name Unknown Organization [facility] Address [address] [place] [facility] [place] [address] Phone [phone] Care Team Providers Care Grinding Machine Operator Automatic Name Role Phone Erika Rebolledo MD Primary Care Provider Reason for Visit * Reason Comments Re-Check Encounter Details Date Type Department Care Team (Late st Contact Info) Description 08/26/2024 10:00 AM EST Office Visit Gynecology/Obstetric s [facility] [address] [place] [address] Candelario Blair MD [address] [place] [address] Cystocele, midline*; Rectocele Allergies No known active allergiesdocumented as of this encounter (statuses as of 08/26/2024) Medications Eysuvis 0.25 % Ophthalmic Suspension (Loteprednol Etabonate) Instill into eye. Active QC Womens Daily Multivitamin Oral Tablet Take by mouth. Active Sertraline HCl 25 MG Oral Tablet (Zoloft)Indicatio ns:Moderate episode of recurrent major depressive disorder (HCC) Take 1 Tablet by mouth in the morning. Chg timing 02/20/2024. 90 Tablet 3 4 08/26/20 24 Discontinu ed(Medicat ion List Clean Up) Omeprazole 20 MG Oral Capsule Delayed Release (PriLOSEC)Indicat ions:Gastritis without bleeding, unspecified chronicity, unspecified gastritis type Take 1 Capsule by mouth in the morning. 1 hour before the first meal of the day. 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 Chief Complaint Patient presents with Re-Check HPI: The patient is a 44-year-old 3 para 2. Patient is seen good general health. Patient had a total abdominal hysterectomy with preservation of ovaries and suspension of vaginal cuff for prolapse. Patient has been developing symptoms of a mass protruding from her vagina when she coughs sneezes or strains. We have been following this for over a year. It is getting progressively worse. Vani feels the bladder bulge out of her vaginal opening when she coughs sneezes or strains. PMH: Patient Active Problem List Diagnosis Major depressive disorder Allergic rhinitis Other acne Rosacea Viral infection Nonallergic rhinitis Moderate episode of recurrent major depressive disorder (HCC) Current Outpatient Medications Medication Sig Dispense Refill Eysuvis 0.25 % Ophthalmic Suspension (Loteprednol Etabonate) Instill into eye. QC Womens Daily Multivitamin Oral Tablet Take by mouth. No current facility-administered medications for this visit. Review of patient's allergies indicates: No Known Allergies Objective BP 110/70 | Ht 1.549 m (5' 1") | Wt 64.9 kg (143 lb) | LMP 07/24/2021 | BMI 27.02 kg/m | BSA 1.67m Pelvic exam revealed a cystocele protruding when the patient coughs sneezes or strains. It comes out of the vaginal opening. I graded as a grade 2 cystocele. Use of a speculum to hold the bladder up also revealed a grade 1 rectocele. There was a small skin tag on the perineum also. Barrel Header Re ASSESSMENT/PLAN: Plan is anterior posterior colporrhaphy with removal of perineal skin tab and insertion of suprapubic catheter. Cystocele, midline (Primary) Rectocele Candelario Blair MD documented in this encounter Nursing Notes * Adriana Diop RN - 08/26/2024 10:04 AM EST Pt here for recheck and to schedule surgery. Desires to discuss time off. If greater than 3 weeks, she will need to push surgery back to the summer. documented in this encounter Plan of Treatment Upcoming Encounters Date Type Department Care Team (Late st Contact Info) Description 08/26/2024 2:30 PM EST Office Visit General Surgery, [facility] [address] [place] [address] Sj Rai MD [address] [place] [address] 08/30/2024 4:30 PM EST Imaging Radiology [facility] 1st [facility] [address] [place] [address] 02/22/2025 8:40 AM EDT Office Visit General Internal Medicine [facility] [address] [place] [address] Raine Etienne MD [address] [place] [address] Health Maintenance Due Date Last Done Comments HIV Screening 1995 Hepatitis C Screening 1998 Hepatitis B Vaccine (1 of 3 - 19+ 3-dose series) 1999 COVID-19 Vaccine (4 - 2023- season) 2024 07/24/2021, 12/28/2020, 12/05/2020 Mammogram 08/29/2024 [...] as of this encounter Visit Diagnoses Diagnosis Cystocele, midline- Primary Rectocele Screening mammogram for breast cancer documented in this encounter Care Teams Grinding Machine Operator Automatic Relationship Specialty Start Date End Date Erika Rebolledo MD [address] [place] [address] PCP - General Internal Medicine 03/13/24 documented as of this encounter
--- OUTSIDE RECORDS SUMMARY | 2024-11-19 13:36 | External Medical Summary | Summary of Care ---
Author Name Unknown Organization [facility] Address [address] [place] [address] Phone [phone] Care Team Providers Care Package Collector Name Role Phone Erika Rebolledo MD Primary Care Provider [phone] Reason for Visit * Reason Onset Date Comments Surgery 09/02/2024 Encounter Details Date Type Department Care Team (Late st Contact Info) Description 09/02/2024 Telephone General Surgery, [facility] [address] [place] [address] Services, Scheduling [address] [place] [address] Surgery Allergies No known active allergiesdocumented as [...] No 07/18/2024 Does the household have a [email or web address] source of income? 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 Advised I will check with Dr Blair on days Dr Rai will be in the OR at [facility]. Ptaware I will be in contact [...] 8:30 AM EDT Office Visit General Surgery, [facility] [address] [place] [address] Sj Rai MD [address] [place] [address] 02/22/2025 8:40 AM EDT Office Visit General Internal Medicine [place] [address] [place] [address] Raine Etienne MD [address] [facility] [place] [address] Health Maintenance Due Date Last Done Comments [...] filedocumented as of this encounter Care Teams Package Collector Relationship Specialty Start Date End Date Erika Rebolledo MD [address] [place] [address] PCP - General Internal Medicine 03/13/24 documented as of this encounter
--- OUTSIDE RECORDS SUMMARY | 2024-11-19 13:36 | External Medical Summary | Summary of Care ---
Author Name Unknown Organization [facility] Address [address] [place] [address] Phone [phone] Care Team Providers Care Chorus Dancer Name Role Phone Erika Rebolledo MD Primary Care Provider [phone] Reason for Visit * Reason Onset Date Comments Surgery 09/02/2024 Encounter Details Date Type Department Care Team (Late st Contact Info) Description 09/02/2024 Telephone General Surgery, [facility] [address] [place] [address] Services, Scheduling [address] [place] [address] Surgery Allergies No known active allergiesdocumented as [...] No 07/18/2024 Does the household have a [facility] source [facility]? 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 No [...] 8:30 AM EDT Office Visit General Surgery, [facility] [address] [address] Sj Rai MD [address] [place] [address] 02/22/2025 8:40 AM EDT Office Visit General Internal Medicine [facility] [address] [place] [address] Raine Etienne MD [address] [place] [address] Health Maintenance Due Date Last Done Comments [...] filedocumented as of this encounter Care Teams Chorus Dancer Relationship Specialty Start Date End Date Erika Rebolledo MD [address] [place] [address] PCP - General Internal Medicine 03/13/24 documented as of this encounter
--- OUTSIDE RECORDS SUMMARY | 2024-11-19 13:36 | External Medical Summary | Summary of Care ---
Author Name Unknown Organization [facility] Address [address] [place] [address] Phone [phone] Care Team Providers Care Vacuum Frame Operator Name Role Phone Erika Rebolledo MD Primary Care Provider [phone] Reason for Visit * Reason Onset Date Comments Advice 08/30/2024 Encounter Details Date Type Department Care Team (Late st Contact Info) Description 08/30/2024 Telephone Gynecology/Obstetrics [facility] [address] [place] [address] Services, Scheduling [address] [place] [address] Advice Allergies No known active allergiesdocumented as [...] No 07/18/2024 Does the household have a [facility] source of income? 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 Please assist Jerica -[phone] documented in this encounter Plan of Treatment Upcoming Encounters Date Type Department Care Team (Late st Contact Info) Description 08/30/2024 4:30 PM EST Imaging Radiology [facility] [address] [facility] [place] [address] 01/27/2025 8:30 AM EDT Office Visit General Surgery, [facility] [address] [facility] [place] [address] Sj Rai MD [address] [facility] [place] [place] [address] 02/22/2025 8:40 AM EDT Office Visit General Internal Medicine [facility] [address] [facility] [place] [address] Raine Etienne MD [address] [facility] [place] [address] Health Maintenance Due Date Last Done Comments [...] filedocumented as of this encounter Care Teams Vacuum Frame Operator Relationship Specialty Start Date End Date Erika Rebolledo MD [address] [place] [address] PCP - General Internal Medicine 03/13/24 documented as of this encounter
--- OUTSIDE RECORDS SUMMARY | 2024-11-19 13:37 | External Medical Summary ---
Author Name Unknown Address Unknown Organization [id number] [place] [address] [place] [address] Laboratory Report Ordering Provider Test Date Status JACOBO TAVAREZ 07/28/2024 15:31:08 Final Observation Date Value Abnormality Reference (Units ) Status MYCODE SPECIMEN-SST 07/28/2024 15:31:08 Freezing of extracted DNA, whole blood and/or serum. Final Performing Location [facility] - [address] [place] [address]
--- OUTSIDE RECORDS SUMMARY | 2024-11-19 13:37 | External Medical Summary | Summary of Care ---
Author Name Unknown Organization [facility] Address [address] [facility] [address] Phone [phone] Care Team Providers Care Furniture Painter Name Role Phone Erika Rebolledo MD Primary Care Provider [phone] Reason for Visit * Reason Comments Acute Encounter Details Date Type Department Care Team (Late st Contact Info) Description 07/13/2024 3:40 PM EST Office Visit Family Medicine [address] [place] [phone] Arelis Thao PA-C [address] [place] [address] [place] [address] Spontaneous ecchymosis* Allergies No known active allergiesdocumented as of this encounter (statuses as of 07/13/2024) Medications Riboflavin 400 MG Oral CapsuleIndicati ons:Headache around the eyes Take 1 Capsule by mouth in the morning. -OTC-. 1 Capsule 4 Active Additional Information Patient not taking.Reported on 07/13/2024 Sertraline HCl 25 MG Oral Tablet (Zoloft)Indicat ions:Moderate episode of recurrent major depressive disorder (HCC) Take 1 Tablet by mouth in the morning. Chg timing 02/20/2024. 90 Tablet 3 4 Active Additional Information Patient not taking.Reported on 07/13/2024 documented as of this encounter (statuses as of 07/13/2024) Active Problems Problem Noted Date Diagnosed Date Moderate episode of recurrent major depressive d isorder 02/13/2021 Viral infection 09/02/2015 Nonallergic rhinitis 09/02/2015 Rosacea 02/09/2014 Major depressive disorder Overview (06/24/2017): ICD-10 update of inactive term Allergic rhinitis Other acne documented as of this encounter (statuses as of 07/13/2024) Resolved Problems Problem Noted Date Diagnosed Date Resolved Date PCOS (polycystic ovarian syndrome) 10/23/2016 02/20/2024 Major depressive disorder Overview (06/24/2017): Resolved per Duplicate Protocol #2. ICD-10 update of inactive term Allergic rhinitis 09/29/2008 Overview (09/29/2008): Resolved per Duplicate Protocol #2. documented as of this encounter (statuses as of 07/13/2024) Immunizations Name Administration Dates Next Due COVID-19 mRNA, LNP-s, No Pre serve, 2-Dose Series ([employer]) 07/24/2021,12/28/2020,12/05/2020 DTWP - Dipth/Tet/Whole Cell Pertussis 04/15/1999 [...] 02/20/2024 Hunger Vital Sign Answer Date Recorded Worried About Running Out of Food in the Last Ye ar Never true 02/04/2020 Ran Out of Food in the Last Year Never true 02/04/2020 Comments No Sex and Gender Information Value Date Recorded Sex Assigned at Female 02/02/2019 10:33 AM EDT Legal Sex Female 5:44 AM EST Gender Identity Female 02/02/2019 10:33 AM EDT Sexual Orientation Straight 02/02/2019 10 :33 AM EDT Occupation Industry Job Start Date Job End Date 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 on 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 No t on file Not on file depression Not on file Not on file Not on file documented as of this encounter Last Filed Vital Signs Vital Sign Reading Time Taken Comments Blood Pressure 112/70 07/13/2024 3:47 PM EST Pulse 70 07/13/2024 3:47 PM EST Temperature 36.1 C (97 F) 07/13/2024 3:47 PM EST Respiratory Rate - - Oxygen Saturation - - Inhaled Oxygen Concentration - - Weight 65.8 kg (145 lb) 07/13/2024 3:47 PM EST Height - - Body Mass Index 26.52 03/02/2024 10:47 AM EDT documented in this encounter Progress Notes * Arelis Thao PA-C - 07/13/2024 3:50 PM EST Nursing Notes: Zari Mccabe, JAVIER 07/13/24 0858 Sign at exiting of workspace Has another hematoma Had one in December Unsure how she got it Right thigh is tender where bruising is Pt here today with spontaneous bruising. She had a large bruise a few months ago. She has found some newer ones over the past few days. Pt denies injury. Pt denies dizziness, lightheadedness, headache, syncope, chest pain, SOB, fever, chills, fatigue, weakness, GI/ sx, abdominal pain, swelling inlegs, nosebleeds. Review of patient's allergies indicates: No Known Allergies Current Outpatient Medications Medication Sig Dispense Refill Riboflavin 400 MG Oral Capsule Take 1 Capsule by mouth in the morning. -OTC-. (Patient not taking: Reported on 07/13/2024) 1 Capsule 0 Sertraline HCl 25 MG Oral Tablet (Zoloft) Take 1 Tablet by mouth in the morning. Chg timing 02/20/2024. (Patient not taking: Reported on 07/13/2024) 90 Tablet 3 No current facility-administered medications for this visit. 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 Employer: [employer] Tobacco Use Smoking status: Never Passive exposure: Past Smokeless tobacco: Never Vaping Use Vaping status: Never Used Substance and Sexual Activity Alcohol use: Yes Comment: wine occasionally Drug use: No Sexual activity: Yes Partners: Male control/protection: Surgical Other Topics Concern Not on file Social History Narrative Not on file Social Needs Financial Resource Strain: Not on file Food Insecurity: No Food Insecurity (02/04/2020) Hunger Vital Sign Worried About Running Out of Food in the Last Year: Never true Ran Out of Food in the Last Year: Never true Transportation Needs: Not on file Social Connections: Not on file Housing Stability: Not on file O:Blood pressure 112/70, pulse 70, temperature 36.1 C (97 F), temperature source Tympanic, weight 65.8 kg (145 lb), last menstrual period 07/24/2021, not currently . GENERAL: alert, healthy, and no distress NECK: supple, no adenopathy, no bruits, thyroid normal size, non-tender, without nodularity EYES: PERRLA, conjunctiva are pink and non-injected, sclera clear EARS: External ears normal, Canals clear, TM's Normal NOSE: no mucosal erythema, no mucosal edema, no purulent discharge OROPHARYNX: no exudate, no erythema, lips, buccal mucosa, and tongue normal, and mucous membranes are moist HEART: regular rate & rhythm, no murmur, and no gallops LUNGS: chest symmetric with normal AP diameter, no chest deformities noted, no chest wall tenderness, lungs clear to auscultation A:Spontaneous ecchymosis (Primary) - CBC WITH WBC DIFFERENTIAL AND ANEMIA REFLEX WORKUP; Future; Expected date: 07/13/2024 - IRON SCREEN, INCLUDING TIBC; Future; Expected date: 07/13/2024 - BASIC METABOLIC PANEL; Future; Expected date: 07/13/2024 - TSH WITH FREE T4 IF INDICATED; Future; Expected date: 07/13/2024 Will check some labs. Any questions/problems, please call. If anything changes, worsens, develops new sx, please call [facility]. Follow Up: Return if symptoms worsen or fail to improve. Arelis Thao PA-C documented in this encounter Nursing Notes * Zari Mccabe LPN - 07/13/2024 3:47 PM EST Has another hematoma Had one in December Unsure how she got it Right thigh is tender where bruising is documented in this encounter Plan of Treatment Upcoming Encounters Date Type Department Care Team (Late st Contact Info) Description 07/13/2024 4:20 PM EST Laboratory Laboratory [address] [place] [phone] [place], [address] [place] [address] 07/19/2024 8:30 AM EST Office Visit Gynecology/Obstetrics [facility] [address] [place] [address] Candelario Blair MD [address] [place] [phone] 08/30/2024 4:30 PM EST Imaging Radiology [facility] [address] [place] [address] 02/22/2025 8:40 AM EDT Office Visit General Internal Medicine [facility] [place] [address] [place] [address] Raine Etienne MD [address] [facility] [place] [address] Scheduled Orders Name Type Priority Associated Diagnoses Orde r Schedule CBC WITH WBC DIFFERENTIAL AND ANEMIA REFLEX WORKUP Lab Routine Spontaneous ecchymosis Expected: 07/13/2024 (Approximate), Expires: 07/13/2025 IRON SCREEN, INCLUDING TIBC Lab Routine Spontaneous ecchymosis Expected: 07/13/2024 (Approximate), Expires: 07/13/2025 BASIC METABOLIC PANEL Lab Routine Spontaneous ecchymosis Expected: 07/13/2024 (Approximate), Expires: 07/13/2025 TSH WITH FREE T4 IF INDICATED Lab Routine Spontaneous ecchymosis Expected: 07/13/2024 (Approximate), Expires: 07/13/2025 Health Maintenance Due Date Last Done Comments HIV Screening 1995 Hepatitis C Screening 1998 Hepatitis B Vaccine (1 of 3 - 19+ 3-dose series) 1999 COVID-19 Vaccine ( season) 2024 07/24/2021, 12/28/2020, 12/05/2020 Influenza Vaccine (FLU shot) (#1) 2024 06/07/2023, 06/08/2022, 06/11/2021, Additional history exists Mammogram 08/29/2024 08/29/2023, 09/01, 08/28/2022, Additional history exists Depression Monitoring 02/19/2025 02/20/2024 Diabetes Screening 02/19/2027 02/20/2024, 0 02/17/2023, 07/15/2019, Additional history exists Lipid Panel 02/19/2029 02/20/2024, 07/02, 07/06/2015 DTap/Tdap Vaccines (4 - Td or Tdap) 02/03/2030 02/04/2020, 07/10/2009, 04/15/1999, Additional history exists Cervical Cancer Screening Discontinued Pap Smear Discontinued 01/26/2019, 04/0 09/2012, 11/22/2012, Additional history exists HPV (Gardasil) Vaccine Aged Out No lo nger eligible based on patient's age to complete this topic HPV/Co-Test Discontinued MENINGOCOCCAL (MENACTRA/MENVEO) Aged Out No longer eligible based on patient's age to complete this topic Pneumococcal Vaccine: Pediatrics (0 to 5 Years) and At-Risk Patients (6 to 64 Years) Aged Out No longer eligible based on patient's age to complete this topic documented as of this encounter Medical Devices Not on filedocumented as of this encounter Visit Diagnoses Diagnosis Spontaneous ecchymosis- Primary Spontaneous ecchymoses Screening mammogram for breast cancer documented in this encounter Care Teams Furniture Painter Relationship Specialty Start Date End Date Erika Rebolledo MD [address] [place] [address] PCP - General Internal Medicine 03/13/24 documented as of this encounter
--- OUTSIDE RECORDS SUMMARY | 2024-11-19 13:37 | External Medical Summary ---
Author Name Unknown Address Unknown Organization [id number]:[place] [place] [address] [facility] [address] Laboratory Report Ordering Provider Test Date Status IWONA DENNIS 07/28/2024 15:31:08 Final Observation Date Value Abnormality Reference (Units ) Status BUN 07/28/2024 15:31:08 10 6-20 (mg/dL) Final Creatinine 07/28/2024 15:31:08 0.7 0.5-1.0 (mg/dL) Final Glomerular filtration rate/1.73 sq M.predicted [Volume Rate/Area] in Serum, Plasma or Blood by Creatinine-based formula (CKD-EPI) 07/28/2024 15:31:08 >90 >=60 (mL/min) Final eGFR is calculated based on the CKD-EPI 2020 equation. Sodium 07/28/2024 15:31:08 138 135-146 (m mol/L) Final Potassium 07/28/2024 15:31:08 4.0 3.5-5.1 (m mol/L) Final Cl 07/28/2024 15:31:08 102 98-107 (mm ol/L) Final CO2 07/28/2024 15:31:08 24 22-32 (mmo l/L) Final Anion gap 07/28/2024 15:31:08 12 7-15 (mmol /L) Final Glucose 07/28/2024 15:31:08 81 70-120 (mg /dL) Final Albumin 07/28/2024 15:31:08 4.7 3.8-5.0 (g /dL) Final AST (Aspartate aminotransferase) 07/28/2024 15:31:08 14 10-35 (U/L) Fin al Alk Phos 07/28/2024 15:31:08 68 35-130 (U/ L) Final Bilirubin, Total 07/28/2024 15:31:08 0.3 <=1 .2 (mg/dL) Final Calcium 07/28/2024 15:31:08 9.3 8.4-10.2 ( mg/dL) Final Protein 07/28/2024 15:31:08 7.8 6.0-8.3 (g /dL) Final ALT (Alanine aminotransferase) 07/28/2024 15:31:08 9 Below low normal 10-35 (U/L) Final Performing Location [facility] [place] [facility] [address] [facility] [place] [address]
--- OUTSIDE RECORDS SUMMARY | 2024-11-19 13:37 | External Medical Summary | Summary of Care ---
Author Name Unknown Organization [facility] Address [address] [place] [address] Phone [phone] Care Team Providers Care Rn Travel Name Role Phone Erika Rebolledo MD Primary Care Provider [phone] Reason for Visit * Reason Comments Outpatient Testing Encounter Details Date Type Department Care Team (Late st Contact Info) Description 07/13/2024 4:20 PM EST Laboratory Laboratory [address] [place] [phone] [place] [address] Spontaneous ecchymosis Allergies No known active allergiesdocumented as of this encounter (statuses as of 07/13/2024) Medications Riboflavin 400 MG Oral CapsuleIndicati ons:Headache around the eyes Take 1 Capsule by mouth in the morning. -OTC-. 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 Not on file depression Not on file Not on file Not on file documented as of this encounter Plan of Treatment Upcoming Encounters Date Type Department Care Team (Late st Contact Info) Description 07/19/2024 8:30 AM EST Office Visit Gynecology/Obstetrics [facility] [address] [place] [address] Candelario Blair MD 132 [facility] [place] [phone] 08/30/2024 4:30 PM EST Imaging Radiology [facility] [address] [place] [address] 02/22/2025 8:40 AM EDT Office Visit General Internal Medicine [facility] [address] [facility] [place] [address] Raine Etienne MD [address] [facility] [place] [address] Pending Results Name Type Priority Associated Diagnoses Date /Time CBC WITH WBC DIFFERENTIAL AND ANEMIA REFLEX WORKUP Lab Routine Spontaneous ecchymosis 07/13/2024 4:28 PM EST IRON SCREEN, INCLUDING TIBC Lab Routine Spontaneous ecchymosis 07/13/2024 4:28 PM EST BASIC METABOLIC PANEL Lab Routine Spontaneous ecchymosis 07/13/2024 4:28 PM EST TSH WITH FREE T4 IF INDICATED Lab Routine Spontaneous ecchymosis 07/13/2024 4:28 PM EST ANEMIA CBC Lab Routine Spontaneous ecchymosis 07/13/2024 4:28 PM EST DIFFERENTIAL, AUTOMATED Lab Routine Spontaneous ecchymosis 07/13/2024 4:28 PM EST ANEMIA REFLEX CHEMISTRY HOLD Lab Routine Spontaneous ecchymosis 07/13/2024 4:28 PM EST Health Maintenance Due Date Last Done Comments [...] of this encounter Visit Diagnoses Diagnosis Spontaneous ecchymosis Spontaneous ecchymoses Screening mammogram for breast cancer documented in this encounter Care Teams Rn Travel Relationship Specialty Start Date End Date Erika Rebolledo MD [address] [place] [address], [place] [address] PCP - General Internal Medicine 03/13/24 documented as of this encounter
--- OUTSIDE RECORDS SUMMARY | 2024-11-19 13:37 | External Medical Summary ---
Author Name Unknown Address Unknown Organization K01:LABORATORY [facility] [place] - [address] [facility] [address] Laboratory Report Ordering Provider Test Date Status RAUL THOMPSON 07/13/2024 16:28:13 Final Observation Date Value Abnormality Reference (Units ) Status TSH 07/13/2024 16:28:13 2.55 0.27-4.20 (uIU/mL) Final Performing Location LABORATORY C - [address] [facility] [address]
--- OUTSIDE RECORDS SUMMARY | 2024-11-19 13:37 | External Medical Summary ---
Author Name Unknown Address Unknown Organization K01:LABORATORY [facility] [place] - [facility] [address] [place] [address] Laboratory Report Ordering Provider Test Date Status IWONA DENNIS 07/28/2024 15:31:08 Final Observation Date Value Abnormality Reference (Units ) Status WBC, Total 07/28/2024 15:31:08 7.11 4.00-10.80 (K/uL) Final RBC 07/28/2024 15:31:08 4.72 3.85-5.15 (M/uL) Final Hemoglobin 07/28/2024 15:31:08 13.7 12.0-15.3 (g/dL) Final HCT 07/28/2024 15:31:08 43.3 36.0-45.2 (%) Final MCV 07/28/2024 15:31:08 91.7 81.5-97.5 (fL) Final MCH 07/28/2024 15:31:08 29.0 27.0-34.0 (pg) Final MCHC 07/28/2024 15:31:08 31.6 32.0-36.0 (g/dL) Final RDW 07/28/2024 15:31:08 13.4 11.5-15.5 (%) Final Platelets 07/28/2024 15:31:08 244 140-400 (K/uL) Final MPV 07/28/2024 15:31:08 12.0 6.6-11.1 (fL) Final Nucleated erythrocytes/100 leukocytes [Ratio] in Blood by Automated count 07/28/2024 15:31:08 0 <=0 (/100 WBCs) Final Performing Location LABORATORY [facility] [place] - [address] [place] [address]
--- OUTSIDE RECORDS SUMMARY | 2024-11-19 13:37 | External Medical Summary | Summary of Care ---
Author Name Unknown Organization [facility] Address [address] [place] [address] Phone [phone] Care Team Providers Care Saddle Stitching Machine Operator Name Role Phone Erika Rebolledo MD Primary Care Provider [phone] Encounter Details Date Type Department Care Team (Late st Contact Info) Description 08/02/2024 Orders Only Outcomes Research Department [address] [place] [address] Brenda Varela CHRA [facility] Other*[id number] Allergies No known active allergiesdocumented as of this encounter (statuses as of 08/02/2024) Medications Sertraline HCl 25 MG Oral Tablet (Zoloft)Indicatio ns:Moderate episode of recurrent major depressive disorder (HCC) Take 1 Tablet by mouth in the morning. Chg timing 02/20/2024. 90 Tablet 3 4 Active Eysuvis 0.25 % Ophthalmic Suspension (Loteprednol Etabonate) Instill into eye. Active QC Womens Daily Multivitamin Oral Tablet Take by mouth. Active Omeprazole 20 MG Oral Capsule Delayed Release (PriLOSEC)Indicat ions:Gastritis without bleeding, unspecified chronicity, unspecified gastritis type Take 1 Capsule by mouth in the morning. 1 hour before the first meal of the day. 30 Capsule 5 4 Active documented as of this encounter (statuses as of 08/02/2024) Active Problems Problem Noted Date Diagnosed Date Moderate episode of recurrent major depressive d isorder 02/13/2021 Viral infection 09/02/2015 Nonallergic rhinitis 09/02/2015 Rosacea 02/09/2014 Major depressive disorder Overview (06/24/2017): ICD-10 update of inactive term Allergic rhinitis Other acne documented as of this encounter (statuses as of 08/02/2024) Resolved Problems Problem Noted Date Diagnosed Date Resolved Date PCOS (polycystic ovarian syndrome) 10/23/2016 02/20/2024 Major depressive disorder Overview (06/24/2017): Resolved per Duplicate Protocol #2. ICD-10 update of inactive term Allergic rhinitis 09/29/2008 Overview (09/29/2008): Resolved per Duplicate Protocol #2. 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 on file depression Not on file Not on file Not on file documented as of this encounter Plan of Treatment Upcoming Encounters Date Type Department Care Team (Late st Contact Info) Description 08/26/2024 10:00 AM EST Office Visit Gynecology/Obstetrics [facility] [address] [place] [address] Candelario Blair MD [address] [place] [phone] 08/30/2024 4:30 PM EST Imaging Radiology [facility] 1[facility] [address] [place] [address] 02/22/2025 8:40 AM EDT Office Visit General Internal Medicine [facility] 200 [facility] [place] [address] Raine Etienne MD 200 [facility] [place] [address] Scheduled Orders Name Type Priority Associated Diagnoses Orde r Schedule MYCODE SUBSEQUENT ADULT Lab Routine [facility] Research Other*[id number] Every 6 Months for 2 Occurrences starting 08/02/2024 until 08/22/2025 Health Maintenance Due Date Last Done Comments [...] history exists Influenza Vaccine (FLU shot) Completed 07/28/2024, 06/07/2023, 06/08/2022, Additional history exists HPV (Gardasil) Vaccine Aged [...] as of this encounter Visit Diagnoses Diagnosis [facility] Other*[id number] Screening mammogram for breast cancer documented in this encounter Care Teams Saddle Stitching Machine Operator Relationship Specialty Start Date End Date Erika Rebolledo MD [address] [place] [address] PCP - General Internal Medicine 03/13/24 documented as of this encounter
--- OUTSIDE RECORDS SUMMARY | 2024-11-19 13:37 | External Medical Summary ---
Author Name Unknown Address Unknown Organization K01:[facility]ORY [facility] [place] [facility] [place] [address] [place] [address] Laboratory Report Ordering Provider Test Date Status RAUL THOMPSON 07/13/2024 16:28:13 Final Observation Date Value Abnormality Reference (Units ) Status BUN 07/13/2024 16:28:13 8 6-20 (mg/dL) Final Creatinine 07/13/2024 16:28:13 0.7 0.5-1.0 (mg/dL) Final Glomerular filtration rate/1.73 sq M.predicted [Volume Rate/Area] in Serum, Plasma or Blood by Creatinine-based formula (CKD-EPI) 07/13/2024 16:28:13 >90 >=60 (mL/min) Final eGFR is calculated based on the CKD-EPI 2020 equation. Sodium 07/13/2024 16:28:13 141 135-146 (m mol/L) Final Potassium 07/13/2024 16:28:13 3.9 3.5-5.1 (m mol/L) Final Cl 07/13/2024 16:28:13 105 98-107 (mm ol/L) Final CO2 07/13/2024 16:28:13 22 22-32 (mmo l/L) Final Anion gap 07/13/2024 16:28:13 14 7-15 (mmol /L) Final Glucose 07/13/2024 16:28:13 93 70-120 (mg /dL) Final Calcium 07/13/2024 16:28:13 8.7 8.4-10.2 ( mg/dL) Final Performing Location [facility] [facility] [place] [facility] [place] [address] [facility] [address]
--- OUTSIDE RECORDS SUMMARY | 2024-11-19 13:37 | External Medical Summary | Summary of Care ---
Author Name Unknown Organization [facility] Address [address] [place] [address] Phone [phone] Care Team Providers Care Engineering Director Name Role Phone Erika Rebolledo MD Primary Care Provider [phone] Reason for Visit * Reason Comments Outpatient Testing Encounter Details Date Type Department Care Team (Late st Contact Info) Description 07/28/2024 3:30 PM EST Laboratory Laboratory [address] [place] [phone] [place] [address] [employer] Other*[id number]; RUQ pain Allergies No known active allergiesdocumented as of this encounter (statuses as of 07/28/2024) Medications Sertraline HCl 25 MG Oral Tablet [...] meal of the day. 30 Capsule 5 Active documented as of this encounter (statuses as of 07/28/2024) Active Problems Problem Noted Date Diagnosed Date Moderate episode of recurrent major depressive d isorder 02/13/2021 Viral infection 09/02/2015 Nonallergic rhinitis 09/02/2015 Rosacea 02/09/2014 Major depressive disorder Overview (06/24/2017): ICD-10 update of inactive term Allergic rhinitis Other acne documented as of this encounter (statuses as of 07/28/2024) Resolved Problems Problem Noted Date Diagnosed Date Resolved Date PCOS (polycystic ovarian syndrome) 10/23/2016 02/20/2024 Major depressive disorder Overview (06/24/2017): Resolved per Duplicate Protocol #2. ICD-10 update of inactive term Allergic rhinitis 09/29/2008 Overview (09/29/2008): Resolved per Duplicate Protocol #2. 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 Not on file Not on file Not on file documented as of this encounter Plan of Treatment Upcoming Encounters Date Type Department Care Team (Late st Contact Info) Description 07/30/2024 9:00 AM EST Imaging Radiology [address] [place] [address] 08/26/2024 10:00 AM EST Office Visit [facility] [place] [address] Candelario Blair MD [address] [place] [phone] 08/30/2024 4:30 PM EST Imaging Radiology [address] [facility] [place] [address] 02/22/2025 8:40 AM EDT Office Visit General Internal Medicine [facility] [address] [place] [address] Raine Etienne MD [address] [place] [address] Pending Results Name Type Priority Associated Diagnoses Date /Time MYCODE INITIAL ADULT Lab Routine MyCode [employer] Other*[id number] 07/28/2024 3:31 PM EST CBC WITH WBC DIFFERENTIAL Lab Routine RUQ pain 07/28/2024 3:31 PM EST COMPREHENSIVE METABOLIC PANEL Lab Routine RUQ pain 07/28/2024 3:31 PM EST MYCODE INITIAL ADULT-PINK Lab Routine [employer] Other*[id number] 07/28/2024 3:31 PM EST MYCODE SST1 Lab Routine [employer] Other*[id number] 07/28/2024 3:31 PM EST MYCODE SST2 Lab Routine [employer] Other*[id number] 07/28/2024 3:31 PM EST CBC Lab Routine RUQ pain 07/28/2024 3:31 PM EST DIFFERENTIAL, AUTOMATED Lab Routine RUQ pain 07/28/2024 3:31 PM EST Health Maintenance Due Date Last Done Comments HIV Screening 1995 Hepatitis C Screening 1998 Hepatitis B Vaccine (1 of 3 - 19+ 3-dose series) 1999 COVID-19 Vaccine ( - season) 2024 07/24/2021, 12/28/2020, 12/05/2020 Mammogram 08/29/2024 08/29/2023, 09/01, 08/28/2022, Additional history exists Depression Monitoring 02/19/2025 02/20/2024 Diabetes Screening 07/13/2027 07/13/2024, 0 02/20/2024, 02/17/2023, Additional history exists Lipid Panel 02/19/2029 02/20/2024, [...] this encounter Visit Diagnoses Diagnosis MyCode [employer] Other*[id number] RUQ pain Abdominal pain, right upper quadrant Screening mammogram for breast cancer documented in this encounter Care Teams Engineering Director Relationship Specialty Start Date End Date Erika Rebolledo MD [address] [facility] [place] [address] PCP - General Internal Medicine 03/13/24 documented as of this encounter
--- OUTSIDE RECORDS SUMMARY | 2024-11-19 13:37 | External Medical Summary ---
Author Name Unknown Address Unknown Organization [id number]:LABORATORY [facility] [place] - [address] [facility] [place] [address] Laboratory Report Ordering Provider Test Date Status JACOBO TAVAREZ 07/28/2024 15:31:08 Final Observation Date Value Abnormality Reference (Units ) Status MYCODE SPECIMEN-LAV 07/28/2024 15:31:08 Freezing of extracted DNA, whole blood and/or serum. Final Performing Location LABORATORY [facility] - [address] [facility] [place] [address]
--- OUTSIDE RECORDS SUMMARY | 2024-11-19 13:37 | External Medical Summary ---
Author Name Unknown Address Unknown Organization [id number][place] [place] [address] [facility] [address] Laboratory Report Ordering Provider Test Date Status IWONA DENNIS 07/28/2024 15:31:08 Final Observation Date Value Abnormality Reference (Units ) Status SYNC LEUKOCYTES IN BLOOD BY AUTOMATED COUNT 07/28/2024 15:31:08 7.11 4.00-10.80 (K/uL) Final Segs 07/28/2024 15:31:08 58.6 40.0-75.0 (%) Final Lymphs % 07/28/2024 15:31:08 33.8 18.0-42.0 (%) Final Monos 07/28/2024 15:31:08 5.9 1.0-11.0 (%) Final Eosinophils 07/28/2024 15:31:08 1.1 0.0-6.0 (%) Final Basos 07/28/2024 15:31:08 0.3 0.0-2.0 (%) Final Immature Granulocyte, Percent 07/28/2024 15:31:08 0.3 0.0-2.0 (%) Final Absolute Segs 07/28/2024 15:31:08 4.17 1.80-7.70 (K/uL) Final Lymphs, absolute 07/28/2024 15:31:08 2.40 1.00-4.80 (K/ul) Final Monos, Abs 07/28/2024 15:31:08 0.42 0.00-1.10 (K/uL) Final Eos, Abs 07/28/2024 15:31:08 0.08 0.00-0.70 (K/uL) Final Basos, Abs 07/28/2024 15:31:08 0.02 0.00-0.20 (K/uL) Final Immature Granulocytes, Number 07/28/2024 15:31:08 0.02 0.00-0.20 (K/uL) Final Performing Location [facility] [place] [address] [facility] [address]
--- OUTSIDE RECORDS SUMMARY | 2024-11-19 13:37 | External Medical Summary ---
Author Name Unknown Address Unknown Organization [id number]:[facility]ORY [facility] [place] [address] [place] [address] Laboratory Report Ordering Provider Test Date Status RAUL THOMPSON 07/13/2024 16:28:13 Final Observation Date Value Abnormality Reference (Units ) Status WBC, Total 07/13/2024 16:28:13 6.54 4.00-10.8 0 (K/uL) Final RBC 07/13/2024 16:28:13 4.62 3.85-5.15 (M/uL) Final Hemoglobin 07/13/2024 16:28:13 13.6 12.0-15.3 (g/dL) Final Anemia reflex testing trigge rs on a HGB < 12.0 for Females and HGB < 13.0 for Males in accordance with the WHO Anemia Guidelines
Anemia reflex testing triggers on a HGB < 12.0 for Females and HGB < 13.0 for Males in accordance with the WHO Anemia Guidelines HCT 07/13/2024 16:28:13 42.0 36.0-45.2 (%) Final MCV 07/13/2024 16:28:13 90.9 81.5-97.5 (fL) Final MCH 07/13/2024 16:28:13 29.4 27.0-34.0 (pg) Final MCHC 07/13/2024 16:28:13 32.4 32.0-36.0 (g/dL) Final RDW 07/13/2024 16:28:13 13.2 11.5-15.5 (%) Final Platelets 07/13/2024 16:28:13 273 140-400 (K /uL) Final MPV 07/13/2024 16:28:13 12.2 6.6-11.1 ( fL) Final Nucleated erythrocytes/100 leukocytes [Ratio] in Blood by Automated count 07/13/2024 16:28:13 0 <=0 (/100 WBCs) Formerly [facility] Performing Location [facility] - [address] [facility] [address]
--- OUTSIDE RECORDS SUMMARY | 2024-11-19 13:37 | External Medical Summary | Summary of Care ---
Author Name Unknown Organization [facility] Address [address] [place] [address] Phone [phone] Care Team Providers Care Centerpuncher Name Role Phone Erika Rebolledo MD Primary Care Provider [phone] Reason for Visit * Reason Onset Date Comments Acute Medication Administration 07/28/2024 Flu an d/or Pneumo Inj Encounter Details Date Type Department Care Team (Late st Contact Info) Description 07/28/2024 3:00 PM EST Office Visit Family Medicine [address] [phone] Sylvia Pugh MD [address] [place] [address] [place] [phone] RUQ pain*; Need for prophylactic vaccination and inoculation against influenza; Gastritis without bleeding, unspecified chronicity, unspecified gastritis type Allergies No known active allergiesdocumented as of this encounter (statuses as of 08/04/2024) Medications Sertraline HCl 25 MG Oral Tablet (Zoloft)Indicatio ns:Moderate episode of recurrent major depressive disorder (HCC) Take 1 Tablet by mouth in the morning. Chg timing 02/20/2024. 90 Tablet 3 Active Eysuvis 0.25 % Ophthalmic Suspension (Loteprednol [...] as of this encounter (statuses as of 08/04/2024) Active Problems Problem Noted Date Diagnosed Date Moderate episode of recurrent major depressive d isorder 02/13/2021 Viral infection 09/02/2015 Nonallergic rhinitis 09/02/2015 Rosacea 02/09/2014 Major depressive disorder Overview (06/24/2017): ICD-10 update of inactive term Allergic rhinitis Other acne documented as of this encounter (statuses as of 08/04/2024) Resolved Problems Problem Noted Date Diagnosed Date Resolved Date PCOS (polycystic ovarian syndrome) 10/23/2016 02/20/2024 Major depressive disorder Overview (06/24/2017): Resolved per Duplicate Protocol #2. ICD-10 update of inactive term Allergic rhinitis 09/29/2008 Overview (09/29/2008): Resolved per Duplicate Protocol #2. 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 No t on file Not on file depression Not on file Not on file Not on file documented as of this encounter Last Filed Vital Signs Vital Sign Reading Time Taken Comments Blood Pressure 108/76 07/28/2024 2:57 PM EST Pulse 65 07/28/2024 2:57 PM EST Temperature 36.1 C (96.9 F) 07/28/2024 2:57 PM ES T Respiratory Rate - - Oxygen Saturation 96% 07/28/2024 2:57 PM EST Inhaled Oxygen Concentration - - Weight 65.8 kg (145 lb) 07/28/2024 2:57 PM EST Height - - Body Mass Index 26.52 03/02/2024 10:47 AM EDT documented in this encounter Progress Notes * Lon Perez, Sylvia Rodriguez MD - 07/28/2024 3:04 PM EST Images from the original note were not included. 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 The pain, initially intermittent, has now become a daily occurrence and seems to be getting worse. The patient also reports that the pain sometimes radiates to the lower back. Accompanying the abdominal pain, the patient has noticed a change in bowel movements, withstools being looser than usual, but denies any blood or mucus in the stool. The patient also reports experiencing daily heartburn, which is a change from the occasional heartburn she used to experience after consuming spicy foods or pizza. The patient has been managing the heartburn with Mylanta. The patient also mentions having bruises on the leg due to low iron levels and is currently on an iron supplement. The patient also mentions having a rectal and cystocelel that will be addressed by an OBGYN in the future. Objective Vitals: 07/28/24 1457 Temp: 96.9 F (36.1 C) Pulse: 65 SpO2: 96% BP: 108/76 Physical Exam ABDOMEN: Right upper quadrant tenderness upon palpation. No tenderness in left upper quadrant, right lower quadrant, or midline. Back tenderness upon palpation. Heart: RRR Lungs: CTAB I have reviewed the following results: Results Assessment and Plan Assessment & Plan Abdominal Pain Constant right upper quadrant pain with radiation to lower quadrant. No urinary symptoms, fever, orvomiting. Change in bowel habits with looser stools and no blood or mucus. Increased heartburn, notpreviously on antacid therapy. -Order blood work to check liver, gallbladder, and kidney function. -Order abdominal ultrasound to assess for gallstones or inflammation. -Start Prilosec for heartburn, to be taken once daily on an empty stomach. -Advise low fat diet to avoid exacerbating potential gallbladder pain. Iron Deficiency Recently diagnosed and started on iron supplement. -Continue iron supplement as directed. Rectocele and Cystocele Planned preoperative evaluation with Dr. Blair in August. -Continue with planned preoperative evaluation. Need for prophylactic vaccination and inoculation against influenza (Primary) - INFLUENZA VAC, TRIVALENT, (IIV3), PF, 0.5 ML (FLUZONE) Wrap-Up Time: I spent a total of 20-29 minutes (exact time 22 mins) on the date of service in preparation, delivery, and documentation of the care provided to Jerica Mathis excluding any time spent in the performance of separately billed services. Text in this note was generated using an ambient documentation service. I discussed the use of a device to record and summarize our discussion today. All persons present during the encounter consented to its use. * Jerica Vora CMA - 07/28/2024 2:59 PM EST PRE - ADMINISTRATION DOCUMENTATION Are you experiencing any cold symptoms or fever? No Have you had Guillain-[place] Syndrome (an illness that causes paralysis) within the last 6 weeks? No Have you had the flu shot in the past? YES Have you ever had a reaction to the flu shot? No Jerica Vora CMA, 07/28/2024 2:59 PM Immunization Administration Documentation Time Out Procedure Performed: Yes Patient Identified (Ask Name/Date of ): Yes Does the patient have a fever greater than 101 degrees today? No Patient allergic to latex? No VFC Stock: No Immunization(s) verified: Yes, Immunization Name: Flu, VIS Sheet(s) given: Yes Verified Side and Site: Yes Verified Shot(s) with Parent(s)/Patient: Yes documented in this encounter Nursing Notes * Jerica Vora CMA - 07/28/2024 2:53 PM EST She is here for abdominal pain on the right that radiates around to the side. It tender to the touch. It is now constant all the time. It used to get worse with BM but she doesn't notice any irritants now. It started 2-3 weeks ago. Recently saw DR. Blair and she has both a rectocel and cystocele she will need surgically repaired in 2024. documented in this encounter Plan of Treatment Upcoming Encounters Date Type Department Care Team (Late st Contact Info) Description 08/12/2024 8:00 AM EST Office Visit General Surgery, [facility] [address] [place] [address] Kumar Carlisle MD [address] [place] [address] 08/26/2024 10:00 AM EST Office Visit Gynecology/Obstetrics [facility] [address] [place] [address] Candelario Blair MD [address] [place] [phone] 08/30/2024 4:30 PM EST Imaging Radiology [facility] [address] [facility] [address] [place] [address] 02/22/2025 8:40 AM EDT Office Visit General Internal Medicine [facility] [address] [place] [address] [place] [address] Raine Etienne MD [address] [facility] [place] [address] Health Maintenance Due Date Last Done Comments [...] Not on filedocumented as of this encounter Results * US ABDOMEN LIMITED (07/30/2024 9:55 AM EST) Anatomical Region Laterality Modality Abdomen, Body Ultrasound 07/31/2024 10:3 2 AM EST Impressions 07/31/2024 10:29 AM EST IMPRESSION Cholelithiasis. Narrative 07/31/2024 10:29 AM EST EXAM US ABDOMEN LIMITED-07/30/2024 9:55 am HISTORY [...] calculi, or focal lesion. OTHER: No ascites. Procedure Note Shailesh Etienne MD - 07/31/2024 EXAM US ABDOMEN LIMITED-07/30/2024 9:55 am HISTORY RUQ pain r/o gallstones TECHNIQUE Sonogram of the right upper quadrant. COMPARISON None. FINDINGS LIVER: Normal echogenicity. 0.7 cm cyst adjacent to the gallbladder. BILE DUCTS: No intrahepatic or extrahepatic duct dilatation. The commonbile duct measures 4 mm. GALLBLADDER: Cholelithiasis. Tiny cholesterol polyp. No gallbladder wallthickening, pericholecystic fluid, or sonographic Jackson's sign. PANCREAS: Visualized portions are unremarkable. RIGHT KIDNEY: 10.7 cm in length. No hydronephrosis, shadowing calculi, orfocal lesion. OTHER: No ascites. IMPRESSION IMPRESSION Cholelithiasis. us Sylvia Perez MD RAD ULTRASOUND Fi nal Result * (ABNORMAL) COMPREHENSIVE METABOLIC PANEL (07/28/2024 3:31 PM EST) Pathologist [facility] BUN 10 6 - 20 mg/dL 07/28/2024 11:34 PM EST [facility] CREATININE 0.7 0.5 - 1.0 mg/dL 07/28/2024 11:34 PM EST [facility] EGFR >90 >=60 mL/min 07/28/2024 11:34 PM EST [facility] Comment:eGFR is calculated b ased on the CKD-EPI 2020 equation. SODIUM 138 135 - 146 mmol/L 07/28/2024 11:34 PM EST [facility] POTASSIUM 4.0 3.5 - 5.1 mmol/L 07/28/2024 11:34 PM EST [facility] CHLORIDE 102 98 - 107 mmol/L 07/28/2024 11:34 PM EST [facility] CO2 24 22 - 32 mmol/L 07/28/2024 11:34 PM EST [facility] ANION GAP 12 7 - 15 mmol/L 07/28/2024 11:34 PM EST [facility] GLUCOSE 81 70 - 120 mg/dL 07/28/2024 11:34 PM EST [facility] Albumin 4.7 3.8 - 5.0 g/dL 07/28/2024 11:34 PM EST [facility] AST 14 10 - 35 U/L 07/28/2024 11:34 PM EST [facility] Alkaline Phosphatase 68 35 - 130 U/L 07/28/2024 11:34 PM EST [facility] Bilirubin, Total 0.3 <=1.2 mg/dL 07/28/2024 11:34 PM EST [facility] CALCIUM 9.3 8.4 - 10.2 mg/dL 07/28/2024 11:34 PM EST [facility] Protein 7.8 6.0 - 8.3 g/dL 07/28/2024 11:34 PM EST [facility] ALT 9(L) 10 - 35 U/L 07/28/2024 11:34 PM EST [facility] Blood Venous blood specimen / Unknown Venipuncture / Unknown 07/28/2024 3:31 PM EST 07/28/2024 3:31 PM EST Sylvia Perez MD LAB BLOOD ORDERABL ES Final Result [facility] [address] [place] [address] documented in this encounter Visit Diagnoses Diagnosis RUQ pain- Primary Abdominal pain, right upper quadrant Need for prophylactic vaccination and inoculation against influenza Gastritis without bleeding, unspecified chronicity, unspecified gastritis type RUQ pain Abdominal pain, right upper quadrant Screening mammogram for breast cancer documented in this encounter Care Teams Centerpuncher Relationship Specialty Start Date End Date Erika Rebolledo MD [address] [facility] [place] [address] PCP - General Internal Medicine 03/13/24 documented as of this encounter
--- OUTSIDE RECORDS SUMMARY | 2024-11-19 13:37 | External Medical Summary ---
Author Name Unknown Address Unknown Organization K01:[place] [place] [address] [facility] [address] Laboratory Report Ordering Provider Test Date Status JAY,KOLASHAE 07/13/2024 16:28:13 Final Observation Date Value Abnormality Reference (Units ) Status SYNC LEUKOCYTES IN BLOOD BY AUTOMATED COUNT 07/13/2024 16:28:13 6.54 4.00-10.80 (K/uL) Final Segs 07/13/2024 16:28:13 62.8 40.0-75.0 (%) Final Lymphs % 07/13/2024 16:28:13 30.1 18.0-42.0 (%) Final Monos 07/13/2024 16:28:13 5.4 1.0-11.0 (%) Final Eosinophils 07/13/2024 16:28:13 1.2 0.0-6.0 (%) Final Basos 07/13/2024 16:28:13 0.3 0.0-2.0 (%) Final Immature Granulocyte, Percent 07/13/2024 16:28:13 0.2 0.0-2.0 (%) Final Absolute Segs 07/13/2024 16:28:13 4.11 1.80-7.70 (K/uL) Final Lymphs, absolute 07/13/2024 16:28:13 1.97 1.00-4.80 (K/ul) Final Monos, Abs 07/13/2024 16:28:13 0.35 0.00-1.10 (K/uL) Final Eos, Abs 07/13/2024 16:28:13 0.08 0.00-0.70 (K/uL) Final Basos, Abs 07/13/2024 16:28:13 0.02 0.00-0.20 (K/uL) Final Immature Granulocytes, Number 07/13/2024 16:28:13 0.01 0.00-0.20 (K/uL) Final Performing Location [facility] [place] [address] [facility] [id number]
--- OUTSIDE RECORDS SUMMARY | 2024-11-19 13:37 | External Medical Summary | Summary of Care ---
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 Encounter Details Date Type Department Care Team (Late st Contact Info) Description 07/19/2024 8:30 AM EST [facility] [address] [place] [address] Candelario Blair MD [address] [place] [phone] Cystocele with first degree uterine prolapse*; Breast pain Allergies No known active allergiesdocumented as of this encounter (statuses as of 07/19/2024) Medications Sertraline HCl 25 MG Oral Tablet (Zoloft)Indicat ions:Moderate episode of recurrent major depressive disorder (HCC) Take 1 Tablet by mouth in the morning. Chg timing 02/20/2024. 90 Tablet 3 4 Active Eysuvis 0.25 % Ophthalmic Suspension (Loteprednol Etabonate) Instill into eye. Active Riboflavin 400 MG Oral CapsuleIndicati ons:Headache around the eyes Take 1 Capsule by mouth in the morning. -OTC-. 1 Capsule 4 07/19/20 24 Discontinu ed(Medicat ion List Clean Up) documented as of this encounter (statuses as of 07/19/2024) Active Problems Problem Noted Date Diagnosed Date Moderate episode of recurrent major depressive d isorder 02/13/2021 Viral infection 09/02/2015 Nonallergic rhinitis 09/02/2015 Rosacea 02/09/2014 Major depressive disorder Overview (06/24/2017): ICD-10 update of inactive term Allergic rhinitis Other acne documented as of this encounter (statuses as of 07/19/2024) Resolved Problems Problem Noted Date Diagnosed Date Resolved Date PCOS (polycystic ovarian syndrome) 10/23/2016 02/20/2024 Major depressive disorder Overview (06/24/2017): Resolved per Duplicate Protocol #2. ICD-10 update of inactive term Allergic rhinitis 09/29/2008 Overview (09/29/2008): Resolved per Duplicate Protocol #2. 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 Mass protruding from the vagina are coughing or sneezing. HPI: Approximately 2 years ago patient underwent total abdominal hysterectomy with preservation of both ovaries. This was done for uterine prolapse. At that time she also had suspension of the vaginal cuff with obliteration of the cul-de-sac. She now has some symptoms consistent with a cystocele. These symptoms consist of mass protruding from the vagina on coughing or sneezing. And some mild lossof urine on coughing or sneezing. We discussed anterior colporrhaphy with the patient. Including how much time off she would need. And what the surgery would entail. Including approximately 2 days ofhospitalization. PMH: Patient Active Problem List Diagnosis Major depressive disorder Allergic rhinitis Other acne Rosacea Viral infection Nonallergic rhinitis Moderate episode of recurrent major depressive disorder (HCC) Current Outpatient Medications Medication Sig Dispense Refill Sertraline HCl 25 MG Oral Tablet (Zoloft) Take 1 Tablet by mouth in the morning. Chg timing 02/20/2024. 90 Tablet 3 Eysuvis 0.25 % Ophthalmic Suspension (Loteprednol Etabonate) Instill into eye. No current facility-administered medications for this visit. Review of patient's allergies indicates: No Known Allergies Objective BP 110/66 | Wt 65.7 kg (144 lb 12.8 oz) | LMP 07/24/2021 | BMI 26.48 kg/m | BSA 1.7 m Patient was a well-developed well-nourished 43-year-old white female alert oriented x3 cooperative in no acute distress. Heart had a regular rhythm S1 and S2 were normal. Lungs are clear to auscultation and percussion. Extraocular movements were intact. Teeth are in a good state of repair. Neck wassupple trachea midline. There was no cervical adenopathy. Careful exam was done of the right breast. There were no masses palpable. Scars underneath the right breast status post augmentation. Abdomenrevealed a well-healed Pfannenstiel incisional scar. Pelvic exam revealed good suspension of the vaginal cuff. Descent of the bladder neck and bladder on coughing or sneezing. No loss of urine noted time of exam. Vaginal exam revealed good vaginal capacity. Sock Liner [place] ASSESSMENT/PLAN: Patient will schedule for anterior colporrhaphy sometime after [facility]. Cystocele with first degree uterine prolapse (Primary) Breast pain Candelario Blair MD documented in this encounter Plan of Treatment Upcoming Encounters Date Type Department Care Team (Late st Contact Info) Description 08/26/2024 10:00 AM EST Office Visit Gynecology/Obstetrics [facility] [address] [place] [address] Candelario Blair MD [address] [facility] [place] [phone] 08/30/2024 4:30 PM EST Imaging Radiology [facility] [address] [place] [address] 02/22/2025 8:40 AM EDT Office Visit General Internal Medicine [facility] [address] [facility] [place] [address] Raine Etienne MD [address] [facility] [place] [address] Health Maintenance Due Date Last Done Comments HIV Screening 1995 Hepatitis C Screening 1998 Hepatitis B Vaccine (1 of 3 - 19+ 3-dose series) 1999 COVID-19 Vaccine (4 - season) 2024 07/24/2021, 12/28/2020, 12/05/2020 Influenza Vaccine [...] Discontinued 01/26/2019, 04/09/2012, 11/22/2012, Additional history exists HPV (Gardasil) Vaccine [...] as of this encounter Visit Diagnoses Diagnosis Cystocele with first degree uterine prolapse- Primary Breast pain Mastodynia Screening mammogram for breast cancer documented in this encounter Care Teams Vault Cashier Relationship Specialty Start Date End Date Erika Rebolledo MD [address] [place], [place] [address] PCP - General Internal Medicine 03/13/24 documented as of this encounter"
[2024-11-19] MEDS ORDERED: bisacodyL 10 MG SUPP PR PRN (13:40)
[2024-11-19] MEDS ORDERED: SENNA 8.6 MG TAB PO PRN (13:40)
[2024-11-19] MEDS ORDERED: MAGNESIUM HYDROXIDE SUSP 30 ML UDC PO PRN (13:40)
[2024-11-19] MEDS ORDERED: MEPERIDINE HCL 25 MG/ML CARP/VIAL IV PRN (13:40)
--- NOTE | 2024-11-19 13:40 | Operative Report ---
Post Operative Report Pre & Post Diagnosis Operation Date: 11/19/24 10:40 Pre-Op Diagnosis: Second Degree Cystocele, First Degree Rectocele, Post-Op Diagnosis: Second Degree Cystocele, First Degree Rectocele, I identified the patient and participated in the time-out.: Yes Procedure Operation Date: 11/19/24 10:40 Actual Procedures p Anterior and Posterior Colporrhaphy, Removal of Perineal Skin Tag, Insertion of Suprapubic Catheter(Not Applicable) - Candelario Blair MD Surgeon Candelario Blair MD Dispatch Manager Sylvia Mar Estimated Blood Loss 50 Findings Consistent with Post-Op Diagnosis Second-degree cystocele first to second-degree rectocele Specimens Vaginal mucosa Drains Suprapubic cystic cath for drainage of the bladder placed by Dr. Flanagan Anesthesia Type General Regional Complications None Indications Loss of urine on coughing or sneezing. Mass protruding from the vagina on coughing sneezing or straining. Description of Procedure Patient was brought to the OR correctly notified by armband conversation legs were placed in the candycane stirrups. Vaginal prep was done along with a super pubic prep and the perineal prep following this patient was draped in usual sterile fashion medical catheter was used to empty the bladder. A cystocele was noted. Weighted speculum was placed in the posterior vagina. The anterior vagina was grasped in the midline with an Allis centimeter from the external urethral meatus. The anterior vagina was injected with lidocaine with epinephrine from 1 cm from the external urethral meatus to the vaginal cuff. We then started by cutting with a knife and then tunneling under the vaginal mucosa with a Metzenbaums scissors we did this right up to the due to the vaginal cuff line the edges of the vaginal mucosa was grasped with Allis and T clamps and the vaginal mucosa was dissected off from the bladder and the bladder neck. Following this hemostasis was good we did interrupted xdubdj-dx-lbpkp sutures of 2-0 Vicryl's to reduce the hernia and support the bladder neck this was done in 2 layers with the Vicryl. I then used a deep suture of heavy chromic to bring together the paravaginal tissues under the bladder neck. And then used a macro suture of chromic gut to reapproximate the vaginal mucosa and give more support to the urethrovesical angle. Excess vaginal mucosa was trimmed off with the scissors and then the vaginal edges were approximated with tejioe-ls-riakk sutures of 3-0 Vicryl right up to the vaginal cuff. Following this attention was turned to the posterior vagina the perineum was infiltrated with local with epinephrine and then we infiltrated the posterior vaginal mucosa up into the vaginal cuff in the midline with local with epinephrine. Due to wedge-shaped portion of the perineal skin removed at and then dissected the vaginal mucosa off right up to the cuff. Following this we cut the excess vaginal tissue from the perineum away and dissected in the midline right to the vaginal cuff grasp the edges of the vagina with T clamps we then identified the levator ani rectal Liebler ani muscles and then did a rnfgaj-fn-zaxif suture of heavy Vicryl at about the level of the ischial spines and then brought this together. We did 2 more shqwik-gr-wkndo sutures of the right rectus muscle to bring the rectus muscle together we also left the top suture along to act as a suture drain following this we excised the excess vaginal mucosa approximated the vaginal mucosa out and to beyond the hymenal ring. The Doub deep suture to approximate the bulbocavernosus muscles 2 sutures approximate the perineal body. And then a running subcuticular suture approximate perineal skin edges. Following this we used a 1 inch iodoform packing to pack the vagina open at the end of the procedure the patient had good vaginal length and could except to the examining finger fingers. Should also be noted that the posterior repair was done with 2 rolled 4 x 4 sponge and sponges retracting the bladder and providing adequate volume we need to approximate the posterior vagina vagina. Following this packing I did a rectal exam to make sure there were no stitches through the rectum there were. And then we had Dr. Flanagan come in to place the super pubic catheter drain. Patient Toller procedure well. I attest to the content of the Intraoperative Record and any orders documented therein. Any exceptions are noted below. Assistance was necessary for exposure and in order to provide safe surgery during this procedure
[2024-11-19] MEDS ORDERED: diphenhydrAMINE 50 MG/ML VIAL IV PRN (14:31)
[2024-11-19] MEDS ORDERED: MoRPHine SULFATE PF 1 MG/ML 10 ML AMP/VIAL INT SPINAL ONE (14:31)
[2024-11-19] MEDS ORDERED: NALBUPHINE HCL INJ 10 MG/ML AMP IV PRN (14:31)
[2024-11-19] MEDS ORDERED: NALOXONE HCL 1 MG in SODIUM CHLORIDE 0.9% 1,000 ML IV PRN (14:31)
[2024-11-19] MEDS ORDERED: NALOXONE HCL 0.08 MG in SYRINGE 1.8 ML IV PRN (14:31)
[2024-11-19] MEDS ORDERED: NALOXONE HCL 0.4 MG/1 ML VIAL/CARP IV PRN (14:31)
[2024-11-19] MEDS: LIDOCAINE 1%/EPINEPHRINE 1:100,000 50 ML VIAL ONE (14:32)
--- NOTE | 2024-11-19 14:32 | Anesthesiology Progress Note ---
Date of Service November 19, 2024 Anesthesia Post Procedure Vital Signs Vital Signs: Temp Pulse Resp BP Pulse Ox O2 Del Method O2 Flow Rate 11/19/24 14:20 55 L 12 103/68 100 Room Air 11/19/24 14:10 61 13 110/73 100 Room Air 11/19/24 14:00 58 L 13 112/68 100 Oxymask 4 11/19/24 13:50 64 12 108/73 100 Oxymask 4 11/19/24 13:45 36.0 C L 65 12 103/85 100 Oxymask 4 11/19/24 10:05 36.8 C 64 18 116/68 100 Room Air Transfer of Care Handoff Completed per policy Notes Mental Status: alert / awake / arousable Patient Amnestic to Procedure: Yes Nausea / Vomiting: adequately controlled Pain: adequately controlled Airway Patency, RR, SpO2: stable & adequate BP & HR: stable & adequate Hydration State: stable & adequate Anesthetic Complications: no major complications apparent and Pt Satisfied with anesthetic care
[2024-11-19] MEDS: NEOMYCIN/POLYMYX/BACITR OINT 15 GM TUBE ONE (14:33)
[2024-11-19] MEDS ORDERED: NO NARCOTICS OR SEDATIVES SCH (14:45)
[2024-11-19] MEDS ORDERED: DC INTRASPINAL MORPHINE SCH (14:45)
[2024-11-19] MEDS: KETOROLAC 30 MG/ML VIAL IV PRN (17:36)
[2024-11-19] MEDS ORDERED: HYDROmorphone INJ 0.5 MG/0.5 ML SYR IV PRN (18:13)
[2024-11-19] MEDS ORDERED: Nursing to Pharmacy Communication SCH (18:15)
[2024-11-19] MEDS: ONDANSETRON INJ 2 MG/ML 2 ML VIAL IV PRN (18:34)
[2024-11-19] MEDS: LACTATED RINGER'S 1,000 ML IV SCH (20:06)
--- NOTE | 2024-11-19 20:33 | Electrocardiogram Report ---
Test Reason : Blood Pressure : */* mmHG Vent. Rate : 59 BPM Atrial Rate : 59 BPM P-R Int : 132 ms QRS Dur : 78 ms QT Int : 440 ms P-R-T Axes : 79 51 39 degrees QTcB Int : 435 ms Sinus bradycardia Possible Left atrial enlargement Borderline ECG When compared with ECG of 17-Feb-2023 14:43, No significant change was found Confirmed by Yung Noguera ([id number]) on 11/19/2024 8:33:04 PM Referred By: Candelario Blair Confirmed By: Yung Noguera
[2024-11-19] MEDS: PROMETHAZINE 6.25 MG/50.25 ML BAG IV STA (21:23)
[2024-11-19] MEDS: LR 15ML/HR IV SCH (22:52)
[2024-11-19] MEDS: CHECK SCOPOLAMINE PATCH PLACEMENT SCH (22:52)
[2024-11-20 06:07] LABS: Basophils # (auto) 0.01 K/uL (0.00-0.20); Basophils % (auto) 0.1 %; Hematocrit (blood only) 33.7 % (37.0-47.0); Hemoglobin 11.3 g/dl (12.0-16.0); Immature Granulocytes # (auto) 0.06 K/uL (0.01-0.20); Immature Granulocytes % (auto) 0.5 %; Lymphocytes # (auto) 1.33 K/uL (1.20-3.40); Lymphocytes % (auto) 11.5 %; Mean Corpuscular Hemoglobin 29.7 pg (25.0-34.0); Mean Corpuscular Hgb Conc 33.5 g/dL (32.0-36.0); Mean Corpuscular Volume 88.7 fL (80.0-100.0); Mean Platelet Volume 10.5 fL (9.4-12.4); Monocytes # (auto) 0.58 K/uL (0.11-0.59); Neutrophils # (auto) 9.54 K/uL (1.40-6.50); Neutrophils % (auto) 82.9 %; Platelet Count 220 K/uL (130-400); RDW Coefficient of Variation 13.2 % (11.5-14.5); RDW Standard Deviation 42.6 fL (36.4-46.3); White Blood Count 11.52 K/ul (4.8-10.8)
[2024-11-20 06:22] LABS: BUN Creatinine Ratio 15.2 (10-20); Calcium 8.2 mg/dl (8.6-10.3); Creatinine Clr Calc Pharmacy 94.3 ml/min; Potassium 3.9 mmol/L (3.5-5.1)
--- OUTSIDE RECORDS SUMMARY | 2024-11-20 06:41 | External Medical Summary | Summary of Care ---
Author Name Unknown Organization [facility] Address [address] [facility] [address] Phone [phone] Care Team Providers Care Gold Cutter Name Role Phone Eirka Rebolledo MD Primary Care Provider [phone] Encounter Details Date Type Department Care Team (Late st Contact Info) Description 11/19/2024 Orders Only Gynecology/Obstetrics [facility] [address] [place] [address] Candelario Blair MD [address] [place] [phone] Allergies No known active allergiesdocumented as of this encounter (statuses as of 11/19/2024) Medications Eysuvis 0.25 % Ophthalmic Suspension (Loteprednol Etabonate) Instill into eye. Active QC Womens Daily Multivitamin Oral Tablet Take by mouth. Activ e Fluticasone Propionate 50 MCG/ACT Nasal Suspension (Flonase) Administer 2 Sprays into each nostril in the morning. 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[employer] Not on file No t on file Not on file depression Not on file Not on file Not on file documented as of this encounter Plan of Treatment Upcoming Encounters Date Type Department Care Team (Late st Contact Info) Description 01/27/2025 1:15 PM EDT Office Visit General Surgery, [facility] [address] [place] [phone] Sj Rai MD [address] [place] [address] 02/22/2025 8:40 AM EDT Office Visit General Internal Medicine [facility] [address] [facility] [place] [address] Raine Etienne MD [address] [facility] [place] [address] Health Maintenance Due Date Last Done Comments [...] Not on filedocumented as of this encounter Procedures Procedure Name Priority Date/Time Associated Diagnosis Comments CHEMISTRY-OUTSIDE Routine 11/19/2024 documented in this encounter Results * CHEMISTRY-OUTSIDE (11/19/2024) Not all results display below - see scan for full detail OUTSIDE LAB (SEE SCANNED REPORT) Comment:SEE SCAN: [facility] CREATININE OUTSIDE L AB (SEE SCANNED REPORT) EGFR OUTSIDE LA B (SEE SCANNED REPORT) POTASSIUM OUTSIDE LA B (SEE SCANNED REPORT) GLUCOSE OUTSIDE LA B (SEE SCANNED REPORT) HOURS FASTING OUTSID E LAB (SEE SCANNED REPORT) TRIGLYCERIDES-OUT SIDE LAB OUTSIDE LAB (SEE SCANNED REPORT) CHOLESTEROL-OUTSI DE LAB OUTSIDE LAB (SEE SCANNED REPORT) HDL-OUTSIDE LAB OUTS HIPOLITO LAB (SEE SCANNED REPORT) CHOL/HDL RATIO-OUTSIDE LAB OUTSIDE LA B (SEE SCANNED REPORT) LDL (CALCULATED)-OUTS HIPOLITO LAB OUTSIDE LAB (SEE SCANNED REPORT) LDL (DIRECT MEASURE)-OUTSIDE LAB OUTSIDE LAB (SEE SCANNED REPORT) HEMOGLOBIN, [id number] LAB OUTSIDE LAB (SEE SCANNED REPORT) PHOSPHORUS-OUTSID E LAB OUTSIDE LAB (SEE SCANNED REPORT) PTH-OUTSIDE LAB OUTS HIPOLITO LAB (SEE SCANNED REPORT) MICROALBUMIN RATIO-OUTSIDE LAB OUTSIDE LA B (SEE SCANNED REPORT) PROTEIN, UA-OUTSIDE LAB OUTSIDE LAB (SEE SCANNED REPORT) HGB 13.6 12.0 - 16.0 G/DL OUTSIDE LAB (SEE SCANNED REPORT) 11/19/2024 us Candelario Blair MD LABORATORY Final Resul t OUTSIDE LAB (SEE SCANNED REPORT) documented in this encounter Care Teams Gold Cutter Relationship Specialty Start Date End Date Erika Rebolledo MD [address] [place] [address], [place] [address] PCP - General Internal Medicine 03/13/24 documented as of this encounter
--- NOTE | 2024-11-20 07:33 | Gynecologic Progress Note ---
Date of Service November 20, 2024 Assessment & Plan (1) Status post anterior colporrhaphy: Present on Admission?: No (2) Uterine prolapse: Present on Admission?: Yes (3) Mixed incontinence urge and stress: Present on Admission?: Yes (4) Urge incontinence of urine: Present on Admission?: Yes Plan Pt has vaginal packing in place encourage ambulation routine post op care regular diet pain meds as needed Admission and Anticipated Discharge Date Admission Date: November 19, 2024 Subjective s/p colporrhaphy, Anterior and posterior repair. Pt doing well. Denies gross surgical pain except for soreness scale : 5/10. Passing flatus. Denies vaginal bleeding, shortness of breadth, palpitations etc. Had nausea last night , was given Zofran. Review of Systems Review of Systems: All systems reviewed & are unremarkable except as noted in HPI & below Constitutional: as per Subjective / HPI Physical Exam Constitutional: WD/WN, vitals as above Respiratory: normal respiratory effort, lungs clear to auscultation Cardiovascular: RRR, no murmur, no edema Gastrointestinal (Abdomen): normal bowel sounds, soft, nontender, no hepatosplenomegaly Results & Data Vital Signs (Past 12 Hours) Vital Signs Temp Pulse Resp BP Pulse Ox O2 Del Method 11/20/24 06:22 105/54 L 11/20/24 05:38 16 97 11/20/24 04:19 16 96 11/20/24 03:19 36.6 C 58 L 16 89/47 L 98 Room Air 11/20/24 02:26 17 95 11/20/24 00:45 15 95 11/20/24 00:45 36.7 C 55 L 15 101/43 L 95 Room Air 11/19/24 23:34 16 95 11/19/24 22:16 16 99 11/19/24 20:30 16 98
[2024-11-20] MEDS: oxyCODONE/ACETAMINOPHEN 5mg/325mg TAB PO PRN (08:59)
[2024-11-20] MEDS: IBUPROFEN 600 MG TAB PO PRN (15:29)
[2024-11-21 06:36] LABS: Basophils # (auto) 0.02 K/uL (0.00-0.20); Basophils % (auto) 0.3 %; Eosinophils # (auto) 0.04 K/uL (0.00-0.50); Eosinophils % (auto) 0.6 %; Hematocrit (blood only) 32.6 % (37.0-47.0); Hemoglobin 10.8 g/dl (12.0-16.0); Immature Granulocytes # (auto) 0.01 K/uL (0.01-0.20); Immature Granulocytes % (auto) 0.1 %; Lymphocytes # (auto) 3.05 K/uL (1.20-3.40); Lymphocytes % (auto) 43.4 %; Mean Corpuscular Hemoglobin 29.8 pg (25.0-34.0); Mean Corpuscular Hgb Conc 33.1 g/dL (32.0-36.0); Mean Corpuscular Volume 90.1 fL (80.0-100.0); Mean Platelet Volume 10.9 fL (9.4-12.4); Monocytes # (auto) 0.41 K/uL (0.11-0.59); Monocytes % (auto) 5.8 %; Neutrophils # (auto) 3.49 K/uL (1.40-6.50); Neutrophils % (auto) 49.8 %; Platelet Count 182 K/uL (130-400); RDW Coefficient of Variation 13.5 % (11.5-14.5); Red Blood Count 3.62 M/uL (4.20-5.40); White Blood Count 7.02 K/ul (4.8-10.8)
[2024-11-21 06:51] LABS: BUN Creatinine Ratio 22.7 (10-20); Calcium 7.7 mg/dl (8.6-10.3); Creatinine Clr Calc Pharmacy 94.3 ml/min; Potassium 4.1 mmol/L (3.5-5.1)
--- NOTE | 2024-11-21 09:36 | Obstetrical Progress Note ---
Date of Service November 21, 2024 Assessment & Plan Admission and Anticipated Discharge Date Admission Date: November 19, 2024 Subjective abdomen soft and non tender bladder is draining well urine clear passing gas vaginal packing removed bleeding scant hgb 10.8 no calf tenderness Results & Data Vital Signs (Past 12 Hours) Vital Signs Temp Pulse Resp BP Pulse Ox O2 Del Method 11/21/24 03:28 36.5 C 65 16 92/50 L 98 Room Air 11/20/24 23:02 36.9 C 69 16 95/48 L 98 Room Air
[2024-11-21] MEDS: ONDANSETRON 4 MG OD TAB PO PRN (16:17)
[2024-11-21] MEDS: oxyCODONE HCL IR 5 MG TAB (IMMEDIATE RELEASE) PO PRN (16:19)
--- NOTE | 2024-11-22 13:07 | Obstetrical Progress Note ---
Date of Service November 22, 2024 Assessment & Plan Admission and Anticipated Discharge Date Admission Date: November 19, 2024 Subjective abdomen soft and non tender passing gas no calf tenderness ambulating well clamping suprapubic catheter patient is unable to void vaginal bleeding scant hgb 10.8 Results & Data Vital Signs (Past 12 Hours) Vital Signs Temp Pulse Resp BP Pulse Ox O2 Del Method 11/22/24 12:45 36.6 C 57 L 20 98/57 L 100 Room Air 11/22/24 07:45 36.7 C 60 16 99/50 L 95 Room Air 11/22/24 04:45 36.6 C 57 L 16 86/58 L 97 Room Air
[2024-11-22] MEDS: CETIRIZINE HCL 10 MG TABLET PO ONE (17:43)
[2024-11-22] MEDS: FLUTICASONE PROPIONATE NA SPR 16 GM BTL SCH (21:21)
[2024-11-23 08:52] VITALS: RESP 16
[2024-11-23] MEDS: CETIRIZINE HCL 10 MG TABLET PO SCH (08:59)
--- NOTE | 2024-11-23 12:48 | Obstetrical Progress Note ---
Date of Service November 23, 2024 Assessment & Plan Admission and Anticipated Discharge Date Admission Date: November 19, 2024 Subjective abdomen soft and non tender tolerating normal diet no calf tenderness ambulating well starting to void in small amounts afebrile Results & Data Vital Signs (Past 12 Hours) Vital Signs Temp Pulse Resp BP Pulse Ox O2 Del Method 11/23/24 07:45 36.0 C L 57 L 16 113/45 L 98 Room Air 11/23/24 01:50 36.6 C 68 18 113/43 L 98 Room Air
--- NOTE | 2024-11-23 13:02 | Discharge Summary ---
Date of Service November 23, 2024 Admission HPI Per Admitting Provider This patient's been followed by me in my office for many years. After having 2 vaginal deliveries she developed significant uterine prolapse. This was repaired several years ago with a total abdominal hysterectomy and suspension of the vaginal cuff. She did well for several years. Then began to develop stress incontinence along with a mass protruding from her vagina when she coughs sneezes or strain. Her preoperative diagnosis was second-degree cystocele with loss of urethral vaginal angle associated with stress incontinence. First- degree rectocele. The day of admission she was brought to the OR where she underwent anterior and posterior colporrhaphy along with insertion of a suprapubic cystic cath. Postoperatively she did well. Postoperative hemoglobin was 10.8. She remained afebrile throughout her postoperative course. Vaginal packing was removed on the second postoperative day. The next day she began clamping the catheter. First day of clamping she could not void at all. Today is the second day of clamping and she is starting to void and minute amounts. She has been given instructions on how to manage her suprapubic catheter at home. How to measure her output. Check for residuals. When residuals are 100 mL or less. She will call the office and have the suprapubic catheter removed. Present time she is ambulating well eating well. Pain is well-controlled with a combination of nonnarcotic pain with medications along with occasional Percocet and Zofran. Discharge Data Procedures Performed Operation Date: 11/19/24 10:40 Actual Procedures p Anterior and Posterior Colporrhaphy, Removal of Perineal Skin Tag,(Not Applicable) - Candelario Blair MD s Insertion of Suprapubic Catheter(Not Applicable) - Candelario Blair MD
[2024-11-23 14:25] VITALS: BP 100/47; PULSE 60; TEMP 98.2; O2SAT 99
== END 2024-11-23 16:50 | disposition home or self-care (01) ==
LOC: ASU 09:36 → INTOOBSV 17:01 → 4E1 17:01
PROC: M.APREP (2024-11-19 10:40)